=== PATIENT | male | born 1975 | race Caucasian/White ===

== ENCOUNTER 2021-09-01 12:17 | Emergency (ER) | payer BC, SELFPAY ==
[2021-09-01] VITALS (8 sets, daily range): BP systolic 142–204; BP diastolic 94–126; PULSE 70–106; RESP 18–20; TEMP 37.4; O2SAT 97–98
--- NOTE | ~2021-09-01 | XR_ITS ---
EXAMINATION: XR chest 1V portable DATE: 09/01/2021 13:49 INDICATION: Chest pain, cough and cold symptoms TECHNIQUE: frontal view of the chest was obtained. COMPARISON: None FINDINGS: Pulmonary vascular congestion without jeevan pulmonary edema. No focal airspace opacities, pleural eff usion or pneumothorax. The cardiomediastinal silhouette is normal. IMPRESSION: 1. Pulmonary vascular congestion without pulmonary edema or other evident acute cardiopulmonary disea se. Reviewed, dictated and finalized at location A. SHELLER IMPRESSION: 1. Pulmonary vascular congestion without pulmonary edema or other evident acute cardiopulmonary disease.
--- NOTE | 2021-09-01 12:23 | ED.GENADULT ---
HPI - General Adult General Chief complaint: Unspecified Stated complaint: hyperglycemia Time Seen by Provider: 09/01/21 12:33 Source: patient and RN notes reviewed Mode of arrival: ambulatory Limitations: no limitations History of Present Illness HPI narrative: Patient is a 45-year-old male who presents with chest tightness for the last 2 days noting that he is feeling congested as well as rhinorrhea nonproductive cough patient has concern for possible COVID he denies fever vomiting diarrhea weakness he also notes that he has been off his medications for months. Patient on arrival is nondistressed in the room Related Data Home Medications Medication Instructions Recorded Confirmed levothyroxine 50 mcg PO DAILY 09/01/21 09/01/21 Allergies Allergy/AdvReac Type Severity Reaction Status Date / Time No Known Allergies Allergy Verified 09/01/21 13:11 Review of Systems Review of Systems: All systems reviewed & are unremarkable except as noted in HPI and below PMFSH Past Medical History Medical History (Updated 09/01/21 @ 17:52 by Esvin Reynolds PA-C) Diabetes mellitus Hyperlipidemia Hypertension Social History Social History (Updated 09/01/21 @ 17:52 by Esvin Reynolds PA-C) Tobacco type: e-cigarettes/vaping Exam Narrative: GENERAL: Well-appearing, obese, and in no acute distress. HEAD: Normocephalic, atraumatic. EYES: PERRLA and EOMI. ENT: Nares clear, no rhinorrhea or epistaxis. Mucous membranes moist. CHEST: Clear to auscultation. No respiratory distress. No wheezes rales or rhonchi HEART: Regular rate and rhythm. No murmur heard. Normal peripheral pulses.. EXTREMITIES: Normal range of motion. No edema. SKIN: Warm, dry, no rash. NEURO: No focal deficits. Alert and oriented x3. Cranial nerves II through XII grossly intact. Normal speech and gait PSYCH: Normal mood and affect. Course Course Emergency Course: Patient presented for evaluation of symptoms that have been present now for the last couple of days he will have COVID testing pending will be discharged home his medications have been filled he has been given primary care follow-up and is felt appropriate for outpatient reevaluation he is afebrile nontoxic-appearing nondistressed and felt appropriate for outpatient reevaluation given strict indications for return is noted and felt appropriate for outpatient reevaluation patient agrees to return if symptoms worsen. He was made aware of case findings treatment plan and diagnosis Vital Signs Vital signs: Vital Signs Temperature 99.4 F 09/01/21 12:22 Pulse Rate 106 H 09/01/21 12:22 Respiratory Rate 20 09/01/21 12:22 Blood Pressure 204/126 H 09/01/21 12:22 Pulse Oximetry 98 09/01/21 12:22 Temperature 99.4 F 09/01/21 12:22 Pulse Rate 70 09/01/21 15:11 Respiratory Rate 18 09/01/21 15:11 Blood Pressure 160/97 H 09/01/21 17:34 Pulse Oximetry 98 09/01/21 15:11 Medical Decision Making MDM Narrative Medical decision making narrative: Patient presented with URI symptoms afebrile nontoxic-appearing nondistressed felt appropriate for outpatient reevaluation given indications for return felt appropriate for outpatient reevaluation he is nontoxic-appearing nondistressed Vital Signs Vital Signs: Vital Signs Temperature 99.4 F 09/01/21 12:22 Pulse Rate 106 H 09/01/21 12:22 Respiratory Rate 20 09/01/21 12:22 Blood Pressure 204/126 H 09/01/21 12:22 Pulse Oximetry 98 09/01/21 12:22 Temperature 99.4 F 09/01/21 12:22 Pulse Rate 70 09/01/21 15:11 Respiratory Rate 18 09/01/21 15:11 Blood Pressure 160/97 H 09/01/21 17:34 Pulse Oximetry 98 09/01/21 15:11 Lab Data Result diagrams: 09/01/21 13:51 09/01/21 13:51 Labs: Lab Results 09/01/21 09/01/21 09/01/21 Range/Units 12:23 13:51 13:51 WBC 5.3 (4.5-10.0) K/mm3 RBC 5.48 (4.6-6.20) M/mm3 Hgb 16.5 (14.0-18.0) g/dL Hct 48.0 (42.0-52.0
[2021-09-01 12:27] LABS: Glucose Point of Care 300 mg/dl (65-105)
--- NOTE | 2021-09-01 13:10 | PC.NURSE ---
Pt states he has had chest pain, congestion, fatigue, and malaise x 2 days. Pt is a type 2 diabetic and a history of hypertension. States he has been out of his medications since last year due to insurance issues. PA at bedside, pt is on cardiac monitoring .
--- NOTE | 2021-09-01 13:35 | ECG_ITS ---
Measurements Intervals [place] Rate: 90 P: -1 WI: 186 QRS: -36 QRSD: 101 T: 59 QT: 349 QTc: 428 Interpretive Statements SINUS RHYTHM LEFT AXIS DEVIATION LEFT VENTRICULAR HYPERTROPHY AND ST-T CHANGE POOR R WAVE PROGRESSION, ANTERIOR LEADS CONSIDER INFERIOR INFARCT, AGE INDETERMINATE BASELINE ARTIFACT- I, II, III, AVR, AVL, AVF, V6 ABNORMAL ECG Electronically Signed On 09-01-2021 14:10:24 PRINCIPAL EMBEDDED SOFTWARE ENGINEER by Lenny Griffin D.O.
[2021-09-01 14:06] LABS: Basophils Absolute Auto 0.1 K/mm3 (0.0-0.1); Basophils Percent Auto 0.9 % (0.2-1.2); Eosinophils Absolute Auto 0.1 K/mm3 (0-0.3); Eosinophils Percent Auto 0.9 % (0-4.4); Hemoglobin 16.5 g/dL (14.0-18.0); Immature Granulocyte Absolute 0.04 K/mm3 (0.00-0.031); Immature Granulocyte Percent A 0.8 % (0-0.5); Lymphocytes Absolute Auto 0.55 K/mm3 (0.9-3.2); Lymphocytes Percent Auto 10.4 % (18.3-44.2); Mean Corpuscular HGB Conc 34.4 g/dl (32-36); Mean Corpuscular Hemoglobin 30.1 pg (26-34); Mean Corpuscular Volume 87.6 fl (80-100); Mean Platelet Volume 10.7 fl (7.4-10.4); Monocytes Absolute Auto 0.6 K/mm3 (0.1-0.6); Monocytes Percent Auto 10.6 % (2.6-8.5); Neutrophils Percent Auto 76.4 % (45.5-73.1); Platelet Count Result 206 k/mm3 (150-375); Red Blood Count 5.48 M/mm3 (4.6-6.20); Red Cell Distribution Width 12.6 % (11.5-14.5); White Blood Count 5.3 K/mm3 (4.5-10.0)
[2021-09-01 14:21] LABS: Alanine Aminotransferase 25 U/L (4-50); Albumin Level 4.4 g/dL (3.5-5.1); Alkaline Phosphatase 121 U/L (38-126); Anion Gap 11 mmol/L (8-16); Aspartate Amino Transferase 26 U/L (17-59); Bilirubin,Total 0.5 mg/dL (0.2-1.3); Blood Urea Nitrogen 11 mg/dL (9-20); Calcium 8.8 mg/dL (8.4-10.2); Carbon Dioxide 23 mmol/L (22-30); Chloride 99 mmol/L (98-107); Estimated CRCL calculation 200 ml/min; Estimated Glomerular Filt Rate > 60; Glucose 308 mg/dL (65-110); Partial Thromboplastin Time 24.8 SECONDS (22.3-36.8); Potassium 3.9 mmol/L (3.4-5.0); Prothrombin Time 12.6 Seconds (11.1-14.7); Sodium 133 mmol/L (137-145)
[2021-09-01 14:32] LABS: Troponin I < 0.012 ng/mL (0.000-0.034)
[2021-09-01] MEDS: METOPROLOL TARTRATE 50 MG TAB 100 MG PO (14:44)
[2021-09-01] MEDS: SODIUM CHLORIDE 0.9% IV 500 ML 999 ML IV CONT (15:36)
[2021-09-01] MEDS: INSULIN HUMAN REGULAR (*BKC) 100 UNITS/ML 10 UNITS SUB-Q (15:36)
[2021-09-01 16:42] LABS: Glucose Point of Care 297 mg/dl (65-105)
[2021-09-01 17:41] LABS: Troponin I 0.015 ng/mL (0.000-0.034)
[2021-09-02 21:12] LABS: SARS-CoV-2 RNA PCR Positive
== END 2021-09-01 18:39 | disposition home or self-care (01) ==
PROVIDERS: Emergency Medicine Emergency Medical Services; Emergency Provider Emergency Medicine
DX: U07.1 COVID-19 (principal); E11.9 Type 2 diabetes mellitus without complications; E78.5 Hyperlipidemia, unspecified; I10 Essential (primary) hypertension
CPT/HCPCS: 36415; 71045; 80053; 82948; 84484; 85025; 85610; 85730; 93005; 96360; 96361; 99284; A9270; C9803; J1815; J7040; U0003; U0005

== ENCOUNTER 2023-09-21 10:52 | Emergency (ER) | payer MEDICAID, SELFPAY ==
--- NOTE | ~2023-09-21 | CT_ITS ---
EXAMINATION: CT abdomen pelvis w con DATE: 09/21/2023 12:36 INDICATION: Rectal bleeding and abdominal pain TECHNIQUE: Computed tomography (CT) of the abdomen and pelvis was performed with 100 mL Omnipaque-350 intravenous contrast. Automated exposure control and iterative reconstruction technique were employe d. The dose-length product was 1283.06 mGy-cm. COMPARISON: None FINDINGS: Minimal discoid atelectasis at the lingula. Heart size is normal. Atherosclerotic coronary artery chelsy cifications. No pericardial or pleural effusion. Liver, gallbladder, pancreas, bilateral adrenal glan ds and kidneys are normal. Small splenic calcific location consistent with old granulomatous disease. Bowels including the appendix are normal. Bladder is normal. No free intraperitoneal gas or fluid. N o pathologically enlarged abdominal or pelvic lymphadenopathy. Mild to moderate thoracolumbar spondyl osis. IMPRESSION: 1. No acute intra-abdominal/pelvic process. Reviewed, dictated and finalized at location A. PRESIDENT REGULATORY
[2023-09-21 11:12] VITALS: BP 173/129; PULSE 93; RESP 16; TEMP 36.6; O2SAT 100
--- NOTE | 2023-09-21 11:51 | ED.GENADULT ---
[facility] - General Adult General Chief complaint: Abdominal Pain Stated complaint: abd pain, rectal bleeding Time Seen by Provider: 09/21/23 11:20 Source: patient Mode of arrival: ambulatory Limitations: no limitations History of Present Illness HPI narrative: This is a 48-year-old male With PMH of DM, hypertension, hypothyroidism, HLD who presents to the ED with chief complaint of rectal pain and bleeding for the past several days. Reports feeling a lot of pressure in the rectal area. Reports this morning he was wiping and some bright red blood. He was having continued bleeding so he used some rags in the area. He reports he had a bout of constipation recently and had been straining hard for several weeks to have bowel movements. reports a little bit of lower abdominal pain is mild. 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 denies fevers, chills, nausea, vomiting, urinary symptoms. Related Data Home Medications Medication Instructions Recorded Confirmed levothyroxine 50 mcg capsule 50 mcg PO DAILY 09/01/21 09/01/21 Allergies Allergy/AdvReac Type Severity Reaction Status Date / Time No Known Allergies Allergy Verified 09/01/21 13:11 Review of Systems Review of Systems: All systems as dictated in [facility] Past Medical History Medical History (Updated 09/21/23 @ 13:20 by Wilman Domingo PA-C) Diabetes mellitus Hyperlipidemia Hypertension Social History Social History (Updated 09/01/21 @ 17:52 by Esvin Reynolds, CARLOS) Tobacco type: e-cigarettes/vaping Exam Narrative: GENERAL: Well-appearing, well-nourished, and in no acute distress. HEAD: Normocephalic, atraumatic. EYES: PERRLA and EOMI. ENT: Nares clear, no rhinorrhea or epistaxis. Mucous membranes moist. Oropharynx without tonsillar hypertrophy exudate or other lesions. NECK: Supple. No adenopathy or masses. CHEST: No respiratory distress. Clear to auscultation. No wheezes rales or rhonchi HEART: Regular rate and rhythm. No murmur heard. Normal peripheral pulses. ABDOMEN: Soft, nontender, nondistended, normal active bowel sounds. MSK: Normal range of motion. No edema. SKIN: Warm, dry, no rash. NEURO: Alert and oriented x3. No focal deficits. PSYCH: Normal mood and affect. : Rectal exam done with nurse auto servicer present. There is evidence of protruding internal hemorrhoid. No evidence of thrombosis. Guaiac exam positive. No area of induration or fluctuance. Course Vital Signs Vital signs: Vital Signs Temperature 97.8 F 09/21/23 11:12 Pulse Rate 93 09/21/23 11:12 Respiratory Rate 16 09/21/23 11:12 Blood Pressure 173/129 H 09/21/23 11:12 Pulse Oximetry 100 09/21/23 11:12 Oxygen Delivery Room Air 09/21/23 11:12 Temperature 97.8 F 09/21/23 11:12 Pulse Rate 89 09/21/23 16:15 Respiratory Rate 20 09/21/23 16:15 Blood Pressure 177/111 H 09/21/23 16:15 Pulse Oximetry 97 09/21/23 16:15 Oxygen Delivery Room Air 09/21/23 11:12 Medical Decision Making MDM Narrative Medical decision making narrative: This is a 48-year-old male who presents to the ED with chief complaint of rectal bleeding and pain. Vitals show elevated blood pressure. Otherwise vitals are normal. He is a diabetic and has been out of his diabetes and hypertensive medications for several weeks. lab work shows a normal red cell count and no Leukocytosis. CMP shows markedly elevated blood sugar of 438. No anion gap or evidence of DKA. CT abdomen and pelvis with IV contrast shows no acute intra-abdominal or pelvic process. Rectal exam shows jeevan blood. There is obvious hemorrhoid noted. No evidence of thrombosed hemorrhoid. Prescription for Anusol given. We were able to get the sugar down to 280 with 2.5 L of fluids as well as 2 separate boluses of 8 units of insulin. Long discussion regarding his chronic medical conditions
[2023-09-21 12:11] LABS: Basophils Absolute Auto 0.1 K/mm3 (0.0-0.1); Basophils Percent Auto 0.9 % (0.2-1.2); Eosinophils Absolute Auto 0.1 K/mm3 (0-0.3); Eosinophils Percent Auto 0.9 % (0-4.4); Hematocrit 48.1 % (42.0-52.0); Hemoglobin 16.8 g/dL (14.0-18.0); Immature Granulocyte Absolute 0.03 K/mm3 (0.00-0.031); Immature Granulocyte Percent A 0.4 % (0-0.5); Lymphocytes Absolute Auto 1.85 K/mm3 (0.9-3.2); Lymphocytes Percent Auto 24.1 % (18.3-44.2); Mean Corpuscular HGB Conc 34.9 g/dl (32-36); Mean Corpuscular Hemoglobin 30.1 pg (26-34); Mean Platelet Volume 10.4 fl (7.4-10.4); Monocytes Absolute Auto 0.5 K/mm3 (0.1-0.6); Monocytes Percent Auto 6.9 % (2.6-8.5); Neutrophils Absolute Auto 5.1 K/mm3 (1.3-6.7); Neutrophils Percent Auto 66.8 % (45.5-73.1); Platelet Count Result 240 k/mm3 (150-375); Red Blood Count 5.59 M/mm3 (4.6-6.20); White Blood Count 7.7 K/mm3 (4.5-10.0)
[2023-09-21 12:15] LABS: Alanine Aminotransferase 23 U/L (6-50); Albumin Level 4.4 g/dL (3.5-5.1); Alkaline Phosphatase 118 U/L (38-126); Anion Gap 6 mmol/L (8-16); Aspartate Amino Transferase 26 U/L (17-59); Bilirubin,Total 0.9 mg/dL (0.2-1.3); Blood Urea Nitrogen 11 mg/dL (9-20); Calcium 9.1 mg/dL (8.4-10.2); Carbon Dioxide 28 mmol/L (22-30); Chloride 98 mmol/L (98-107); Estimated CRCL calculation 157 ml/min; Estimated Glomerular Filt Rate > 60; Glucose 438 mg/dL (65-110); Sodium 132 mmol/L (137-145)
[2023-09-21] MEDS: SODIUM CHLORIDE 0.9% IV 1,000 ML 999 ML IV CONT ×2 (12:56)
[2023-09-21 12:59] VITALS: BP 190/130; PULSE 99; RESP 20; O2SAT 96
[2023-09-21] MEDS: INSULIN HUMAN REGULAR (*BKC) 100 UNITS/ML 8 UNITS IV PUSH ×2 (13:54→14:55)
[2023-09-21 13:59] VITALS: BP 180/110; PULSE 88; RESP 20; O2SAT 96
[2023-09-21 13:59] LABS: Glucose Point of Care 475 mg/dl (65-105)
[2023-09-21 14:23] LABS: Glucose Point of Care 422 mg/dl (65-105)
[2023-09-21] MEDS: SODIUM CHLORIDE 0.9% IV 500 ML 999 ML IV CONT (14:55)
[2023-09-21 16:12] LABS: Glucose Point of Care 280 mg/dl (65-105)
[2023-09-21] MEDS: POTASSIUM CHLORIDE 20 MEQ ER TABLET PO (16:14)
[2023-09-21 16:15] VITALS: BP 177/111; PULSE 89; RESP 20; O2SAT 97
== END 2023-09-21 16:17 | disposition home or self-care (01) ==
PROVIDERS: Emergency Provider Physician Assistant
DX: K64.8 Other hemorrhoids (principal); I10 Essential (primary) hypertension; E03.9 Hypothyroidism, unspecified; E11.9 Type 2 diabetes mellitus without complications; F17.290 Nicotine dependence, other tobacco product, uncomplicated; Z79.84 Long term (current) use of oral hypoglycemic drugs
CPT/HCPCS: 36415; 74177; 80053; 82948; 85025; 96361; 96374; 96375; 99284; A9270; J1815; J7030; J7040; Q9967

== ENCOUNTER 2024-06-22 02:01 | Emergency (ER) | payer OTHER, SELFPAY ==
--- NOTE | ~2024-06-22 | XR_ITS ---
EXAMINATION: XR shoulder RT min 2V DATE: 06/22/2024 02:49 INDICATION: Right shoulder pain. TECHNIQUE: 3 views of right shoulder were obtained. COMPARISON: None. FINDINGS: Alignment is normal. No fracture. The glenohumeral joint is not well profiled. There is mil d acromioclavicular joint osteoarthritis. IMPRESSION: 1. Mild acromioclavicular joint osteoarthritis. Reviewed, dictated and finalized at location A. SHOP MANAGER
[2024-06-22 02:05] VITALS: BP 158/109; PULSE 103; RESP 20; TEMP 36.8; O2SAT 100
--- NOTE | 2024-06-22 02:34 | ED.EXTPRO ---
HPI - Extremity Problem General Chief complaint: Extremity Problem,Nontraumatic Stated complaint: right shoulder pain, weak, burn, numb 1 week Time Seen by Provider: 06/22/24 02:15 Source: patient Mode of arrival: ambulatory Limitations: no limitations History of Present Illness HPI Narrative: Patient is a 48-year-old male who presents the ED with report of right shoulder pain. Patient reports having pain in his right shoulder for the last 3 days. 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 Has had persistent pain with movement since then. Reports intermittent tingling in right upper extremity due to pain. Denies chest pain or shortness of breath. Has been taking ibuprofen at home without improvement. Related Data Home Medications Medication Instructions Recorded Confirmed levothyroxine 50 mcg capsule 50 mcg PO DAILY 09/01/21 09/01/21 Allergies Allergy/AdvReac Type Severity Reaction Status Date / Time No Known Allergies Allergy Verified 06/22/24 02:11 Review of Systems Review of Systems: All systems reviewed & are unremarkable except as noted in HPI. All systems reviewed & are unremarkable except as noted in HPI and below PMFSH Past Medical History Medical History Diabetes mellitus Hyperlipidemia Hypertension Social History Social History Tobacco type: e-cigarettes/vaping Exam Narrative: GENERAL: Well appearing, obese with BMI of 31.6, non-toxic, in no acute distress. HEAD: Normocephalic, atraumatic. RESPIRATORY: Airway patent, respirations nonlabored. CARDIOVASCULAR: Regular rate and rhythm. Radial pulses intact and easily palpable. MUSCULOSKELETAL: Moves all extremities. No gross deformities. Mild limited range of motion of right due to pain past 90? of flexion or abduction. Sensation intact throughout extremity. No swelling noted. Mild tenderness to palpation throughout posterior right shoulder and into trapezius region, reproducing pain. SKIN: Warm, dry, normal color. NEURO: A&O X3. Speech clear. Cranial nerves II-XII grossly intact. No ataxic movements. PSYCHIATRIC: Appropriate mood and affect. Normal interaction. Course Vital Signs Vital signs: Vital Signs Temperature 98.2 F 06/22/24 02:05 Pulse Rate 103 H 06/22/24 02:05 Respiratory Rate 20 06/22/24 02:05 Blood Pressure 158/109 H 06/22/24 02:05 Pulse Oximetry 100 06/22/24 02:05 Oxygen Delivery Room Air 06/22/24 02:05 Temperature 98.2 F 06/22/24 02:05 Pulse Rate 103 H 06/22/24 02:05 Respiratory Rate 20 06/22/24 02:05 Blood Pressure 158/109 H 06/22/24 02:05 Pulse Oximetry 100 06/22/24 02:05 Oxygen Delivery Room Air 06/22/24 02:05 MDM - Extremity (Nontraumatic) MDM Narrative Medical decision making narrative: Patient?s injury is consistent with musculoskeletal etiology. No signs of neurologic or vascular compromise on physical examination. Compartments are soft without signs of compartment syndrome. XR of right shoulder interpreted by myself with possible mild subluxation, no acute fracture/dislocation. Pain is consistent with shoulder strain. Discussed possibility of rotator cuff injury. Patient is felt to be stable for discharge home and further outpatient management and treatment. Patient given sling in the ED. Will prescribe short course of pain medicine for home. Will refer to orthopedics for further evaluation. Given return precautions. Discharged in stable condition. Medical Records Attestation: I reviewed the patient's medical records. Imaging Data Attestation: I personally reviewed and interpreted this imaging study as follows: My impression: XR R shoulder: Possible subluxation of humeral head. No acute fracture or dislocation. Discharge Plan Discharge Clinical Impression: Strain of right shoulder Qualifiers: Encounter type: initial encounter Qualified Code(s): S46.911A - Strain of unspecified muscle, fascia and tendon at shoulder and upper arm level, right arm, initial encounter Patient Disposition: Home, Self-Care Condition: Stable Instructions: Antibiotic Form, Rotator Cuff Injury (ED), How to Use a Sling (ED), Shoulder Sprain (ED) Additional Instructions: Utilize sling for comfort and support. Recommend frequent icing to shoulder, lidocaine patches to area of pain. Continue Tylenol and ibuprofen as needed for pain. Tramadol as needed for more severe pain. Follow-up with orthopedics for further evaluation if needed. Return to the ED if you experience worsening or severe pain, recurrent injury, numbness, chest pain, shortness of breath, or any other symptoms of concern. Prescriptions: New tramadol 50 mg tablet 50 mg PO Q6H PRN (Reason: pain) Qty: 10 0RF lidocaine 5 % adhesive patch,medicated 1 patch topical DAILY Qty: 15 0RF Rx Instructions: leave on most painful area for up to 12 hrs No Action hydrocortisone acetate [Anusol-HC] 25 mg suppository 25 mg RECTAL BID Qty: 12 0RF levothyroxine 50 mcg Capsule 50 mcg PO DAILY metformin 500 mg Tablet 500 mg PO BID Qty: 60 0RF atorvastatin 20 mg Tablet 20 mg PO DAILY Qty: 30 0RF metoprolol tartrate 100 mg Tablet 100 mg PO BID Qty: 30 0RF amlodipine 10 mg Tablet 10 mg PO DAILY Qty: 30 0RF hydrochlorothiazide 25 mg Tablet 25 mg PO DAILY Qty: 30 0RF Follow-up/Referrals: Gaetano Shields MD [Physician] - (ORTHOPEDICS) PHYSICIAN NOT ON STAFF,NONSTAFF [Primary Care Provider] - Stand Alone Forms: Work/School Release IP Time of Disposition: 03:00
[2024-06-22] MEDS: LIDOCAINE 5% PATCH 1 PATCH TRANSDERM (02:47)
[2024-06-22] MEDS: HYDROcodone/acetaminophen (*CRX) 5-325 MG TABLET 1 TAB PO (02:48)
== END 2024-06-22 03:09 | disposition home or self-care (01) ==
PROVIDERS: Emergency Provider Physician Assistant
DX: S46.911A Strain of unspecified muscle, fascia and tendon at shoulder and upper arm level, right arm, initial encounter (principal); I10 Essential (primary) hypertension; E11.9 Type 2 diabetes mellitus without complications; E78.5 Hyperlipidemia, unspecified; F17.290 Nicotine dependence, other tobacco product, uncomplicated; Z79.84 Long term (current) use of oral hypoglycemic drugs; Z79.899 Other long term (current) drug therapy; M19.011 Primary osteoarthritis, right shoulder; X50.9XXA Other and unspecified overexertion or strenuous movements or postures, initial encounter
CPT/HCPCS: 73030; 99283; A9270

== ENCOUNTER 2025-03-25 09:45 | Observation (INO) | payer OTHER, SELFPAY ==
[2025-03-25] VITALS (51 sets, daily range): BP systolic 147–188; BP diastolic 107–139; PULSE 86–99; RESP 13–38; TEMP 36.7–37.1; O2SAT 91–99
--- NOTE | ~2025-03-25 | XR_ITS ---
Exam: Chest x-ray 2 views CLINICAL HISTORY: Left-sided chest pain. Shortness of breath. Cough for 2 days. COMPARISON: 09/01/2021. TECHNIQUE: Frontal and lateral images of the chest were obtained. FINDINGS: Cardiomediastinal silhouette is borderline enlarged, unchanged. No pneumothorax. No pleural effusion. No free air in the diaphragm. Small opacities in the lower lungs. There is a 2.5 cm masslike density in the left suprahilar region. Differential includes overlapping v asculature, mass or focal consolidation. A chest CT with contrast is recommended. IMPRESSION: 1.There is a 2.5 cm masslike density in the left suprahilar region. Differential includes overlapping vasculature, mass or focal consolidation. A chest CT with contrast is recommended. 2. Small opacities in the lower lungs. Differential includes atelectasis/scarring or infiltrates. Reviewed, dictated and finalized at location A. IMPRESSION: 1.There is a 2.5 cm masslike density in the left suprahilar region. Differentia l includes overlapping vasculature, mass or focal consolidation. A chest CT wit h contrast is recommended. 2. Small opacities in the lower lungs. Differential includes atelectasis/scarri ng or infiltrates.
--- NOTE | ~2025-03-25 | CT_ITS ---
EXAMINATION: CTA chest DATE: 03/27/2025 12:10 CDT INDICATION: Chest pain with newly diagnosed pulmonary hypertension and cardiomyopathy. TECHNIQUE: Computed tomographic angiography (CTA) of the chest was performed with 100 mL Omnipaque-35 0 intravenous contrast. The dose-length product was 815.46 mGy-cm. Maximum intensity projection 3D-re constructions of the aorta and other arteries were constructed by the technologist on a separate work station. COMPARISON: CTA examination of the chest dated 03/25/2025 FINDINGS/OBSERVATIONS: PULMONARY ARTERIES: No filling defect is identified within the main or proximal pulmonary artery. The main pulmonary artery is not enlarged. THORACIC AORTA: No aneurysmal dilatation or dissection is present, unchanged from previous study. The great vessels are intact LUNGS: Interval resolution of the bilateral pleural effusions and trace anasarca seen on previous exa mination. Mild groundglass opacification remains detected diffusely throughout the bilateral pulmonary parenchy ma. MEDIASTINUM: Redemonstration of prominent mediastinal lymph nodes, the largest lymph nodes are locate d within the aortopulmonary window measuring 9 mm in short axis dimension, not pathologically enlarge d. No morphologically suspicious or pathologically enlarged lymph nodes are identified within the medias tinum or bilateral axilla. BONES OF THE CHEST: No acute fracture. No significant degenerative disease. No lytic or blastic lesions. HEART: The heart is enlarged, unchanged, without pericardial effusion. IMPRESSION: No pulmonary embolus. No thoracic aortic dissection. Interval resolution of the bilateral pleural effusions and trace anasarca seen on previous examinatio n. Reviewed, dictated and finalized at location A. IMPRESSION: No pulmonary embolus. No thoracic aortic dissection. Interval resolution of the bilateral pleural effusions and trace anasarca seen on previous examination.
--- NOTE | ~2025-03-25 | CT_ITS ---
EXAMINATION: CTA chest PE protocol DATE: 03/25/2025 11:18 INDICATION: Chest pain, shortness of breath and possible lung mass TECHNIQUE: Computed tomography (CT) pulmonary angiogram of the chest was performed with 100 mL Omnipa que-350 intravenous contrast. Additional 3D reconstructions utilizing coronal maximum intensity proje ction (MIP) were performed. Automated exposure control and iterative reconstruction technique were em ployed. The dose-length product was 580.29 mGy-cm. COMPARISON: None FINDINGS: No pulmonary embolism. Mild pulmonary edema with diffuse bilateral dependent prominent groundglass op acities and basilar predominant mild smooth septal line thickening. Small posterior layering bilatera l pleural effusions. No pulmonary masses. Opacity of concern on prior radiographs likely related to s uperimposition of the first rib costochondral calcifications and the left suprahilar pulmonary vascul ar shadows. Heart size is normal. Atherosclerotic coronary artery calcific location. No pericardial e ffusion. Thoracic aorta is normal in caliber. Mild likely reactive mediastinal lymphadenopathy with m ultiple small lymph nodes more notable for number than size. No pathologically enlarged thoracic lymp hadenopathy. Visualized upper abdomen is unremarkable. Moderate thoracic spondylosis and chronic mild likely physiologic anterior wedging at T11 and T12. IMPRESSION: 1. No pulmonary embolism. 2. Mild pulmonary edema and small bilateral pleural effusions. Reviewed, dictated and finalized at location A.
--- NOTE | ~2025-03-25 | XR_ITS ---
EXAMINATION: XR chest 1V portable 03/27/2025 11:23 INDICATION: Chest discomfort PROCEDURE: AP portable chest COMPARISON: 03/25/2025 FINDINGS: The lungs are clear. The cardiomediastinal silhouette is within normal limits. There are no pleural effusions. There is no pneumothorax suspected. IMPRESSION: 1: NO ACUTE CARDIOPULMONARY DISEASE. Reviewed, dictated and finalized at location A.
--- NOTE | 2025-03-25 10:02 | ECG_ITS ---
Test Date: 2025-03-25 10:09:15 Measurements Intervals [place] Rate: 90 P: 20 FL: 208 QRS: -31 QRSD: 161 T: 138 QT: 425 QTc: 523 Interpretive Statements SINUS RHYTHM LEFT AXIS DEVIATION POSSIBLE LEFT ATRIAL ENLARGEMENT LEFT BUNDLE BRANCH BLOCK BASELINE ARTIFACT- I, III, AVR, AVL ABNORMAL ECG No previous ECG available for comparison Electronically Signed On 03-25-2025 10:30:04 CDT by Lenny Griffin D.O.
[2025-03-25 10:17] LABS: Hematocrit 44.0 % (42.0-52.0); Hemoglobin 14.4 g/dL (14.0-18.0); Immature Granulocyte Percent A 0.2 % (0-0.5); Lymphocytes Absolute Auto 1.91 K/mm3 (0.9-3.2); Mean Corpuscular HGB Conc 32.7 g/dl (32-36); Mean Corpuscular Hemoglobin 29.9 pg (26-34); Mean Corpuscular Volume 91.3 fl (80-100); Nucleated Red Blood Cells Absolute Auto 0.000 K/mm3 (0.0-0.012); Nucleated Red Blood Cells Perc 0.0 % (0.0-0.2); Platelet Count Result 304 k/mm3 (150-375); Red Blood Count 4.82 M/mm3 (4.6-6.20); White Blood Count 9.1 K/mm3 (4.5-10.0)
--- OUTSIDE RECORDS SUMMARY | 2025-03-25 10:22 | XMS_ITS | Clinical Summary ---
Author Organization [facility] [address] [place] [id number] Care Team Providers Care Conveyor Worker Name Role Phone Carlos Shields Primary Care Provider + Allergies No known active allergies Medications amLODIPine (NORVASC) 10 mg tablet 04/11/2024 Active metoprolol XL (TOPROL-XL) 100 mg 24 hr tablet 04/11/2024 Act tian Januvia 100 mg tablet 04/19/2024 Active losartan (COZAAR) 100 mg tablet 04/11/2024 Active hydroCHLOROthia zide (HYDRODIURIL) 25 mg tablet 04/11/2024 Active insulin glargine (LANTUS) 100 unit/mL (3 mL) pen for injectionIndica tions:Type 2 diabetes mellitus with hyperglycemia, without long-term current use of insulin (HCC) Inject 16-20 Units under the skin daily 6 mL 5 05/20/2024 Active empagliflozin (JARDIANCE) 25 mg tabletIndicatio ns:Type 2 diabetes mellitus with hyperglycemia, without long-term current use of insulin (HCC) Take 1 tablet (25 mg total) by mouth daily 30 tablet 5 05/20/2024 Active pen needle, diabetic (BD Ultra-Fine Bindu Pen Needle) 32 gauge x needleIndicatio ns:Type 2 diabetes mellitus with hyperglycemia, without long-term current use of insulin (HCC) One each daily 30 each 11 05/20/2024 Active gabapentin (NEURONTIN) 300 mg capsuleIndicati ons:Diabetic Peripheral Neuropathy Take 1 capsule (300 mg total) by mouth 3 (three) times a day 90 capsule 2 05/20/2024 Active Dexcom G7 Bi Technical Lead miscIndications :Type 2 diabetes mellitus with hyperglycemia, without long-term current use of insulin (HCC) Use as directed. 1 each 05/20/2024 Active Dexcom G7 Sensor deviceIndicatio ns:Type 2 diabetes mellitus with hyperglycemia, without long-term current use of insulin (HCC) Use as directed. Change sensor every 10 days. 3 each 11 05/20/2024 Active atorvastatin (LIPITOR) 20 mg tabletIndicatio ns:Hyperlipidem ia associated with type 2 diabetes mellitus (HCC) Take 1 tablet (20 mg total) by mouth nightly 90 tablet 3 05/20/2024 5 Active Active Problems Problem Noted Date Diagnosed Date Type 2 diabetes mellitus wit h hyperglycemia, without long-term current use of insulin 05/20/2024 Assessment & Plan (05/20/2024 1:03 PM CDT): Chronic, poorly controlled, slowly improving but still above goal Hemoglobin A1c 11% Goal A1c at least less than 7.5-7% Counseled patient on diet and exercise Recommend to check blood sugars more often Discussed about continuous glucose monitoring Patient willing to try Dexcom G7 Sent prescription and gave samples Recommend below medication regimen Keep taking Januvia 100 mg oral daily Start Lantus 10 units SQ daily in morning ( increase by 2-4 units every 3-4 days until you see morning blood sugars between 120-140 range, max dose 20 units per day ) Start Jardiance 25 mg oral daily - check labs today Adding GLP 1 agonist in future Diabetic neuropathy associat ed with type 2 diabetes mellitus 05/20/2024 Assessment & Plan (05/20/2024 1:01 PM CDT): Chronic, uncontrolled, worsening Recommend to work on better glycemic control Start gabapentin for symptomatic management Advised to start taking gabapentin 300 mg oral daily at bedtime and slowly increase up to 3 times daily Discussed about mechanism of action, side effects and benefits Hypertension associated with diabetes 05/20/2024 Assessment & Plan (05/20/2024 1:02 PM CDT): Chronic, fairly controlled Patient on Arb and CHARLIE inhibitors together Advised to stop enalapril Continue losartan, amlodipine, metoprolol and hydrochlorothiazide Hyperlipidemia associated with type 2 diabetes julia estrada 05/20/2024 Assessment & Plan (05/20/2024 1:02 PM CDT): We will start patient on statin therapy Class 1 obesity due to exces s calories with serious comorbidity and body mass index (BMI) of 31.0 to 31.9 in adult 05/20/2024 Assessment & Plan (05/20/2024 1:01 PM CDT): Counseled on diet and exercise Medical History Medical History Date Comments Diabetes (HCC) Hypertension Family History Medical History Relation Name Comments Lupus Mother Relation Name Status Comments Mother Social History Tobacco Use Types Packs/Day Years Used Date Smoking Tobacco: Some Days Vaping Tobacco Cessation:Ready to Q uit: Not Asked; Counseling Given: Not Answered Personal Safety Answer Date Recorded Getting School Help Needed Not on file 04/19 Sex and Gender Information Value Date Recorded Sex Assigned at Not on file Legal Sex Male 8:59 AM CDT Gender Identity Not on file Sexual Orientation Not on file Obstetrics History Last Filed Vital Signs Vital Sign Reading Time Taken Comments Blood Pressure 138/88 05/20/2024 10:34 AM CDT Pulse 101 05/20/2024 10:34 AM CDT Temperature - - Respiratory Rate 16 05/20/2024 10:34 AM CDT Oxygen Saturation - - Inhaled Oxygen Concentration - - Weight 100.2 kg (221 lb) 05/20/2024 10:34 AM CDT Height 177.8 cm (5' 10) 05/20/2024 10:34 AM CDT Body Mass Index 31.71 05/20/2024 10:34 AM CDT Plan of Treatment Health Maintenance Due Date Last Done Comments Albumin Creatinine Ratio, Urine 1976 Colon Cancer Screening-Colonoscopy 1976 Depression Screening 1976 Hepatitis C Screening 1976 eGFR 1976 Dilated Eye Exam 1976 Lipid Panel 1976 DTaP/Tdap/Td Vaccine (1 - Tdap) 1987 Hepatitis B Screening 1994 Regular Well Visit/Exam 18-64 1994 Pneumococcal vaccine <65 (1 of 2 - PCV) 1995 Hemoglobin A1C 11/18/2024 05/20/2024 Influenza Vaccine (#1) 2025 Foot Exam 05/20/2025 05/20/2024 Procedures Procedure Name Priority Date/Time Associated Diagnosis Comments POCT HEMOGLOBIN A1C Routine 05/20/2024 1 0:37 AM CDT Type 2 diabetes mellitus with hyperglycemia, without long-term current use of insulin (HCC) from Last 3 Months or Most Recently Relevant to Health Maintenance Results * POCT hemoglobin A1c (05/20/2024 10:37 AM CDT) Hemoglobin A1C, POC 11.0 4.0 - 5.6 % Blood 05/20/2024 10:3 7 AM CDT Trina Muller MD POINT OF CARE TEST ORDERABLES Final Result from Last 3 Months or Most Recently Relevant to Health Maintenance [place] [address] [place] [address] Care Teams Conveyor Worker Relationship Specialty Start Date End Date Carlos Shields PA [address] [place] [id number] PCP - General Internal Medicine 04/19/24
[2025-03-25 10:29] LABS: INR 1.0; Prothrombin Time 13.8 Seconds (11.1-14.7)
[2025-03-25 10:30] LABS: Partial Thromboplastin Time 24.4 Seconds (22.3-36.8)
[2025-03-25 10:31] LABS: Alanine Aminotransferase 67 U/L (6-50); Albumin Level 3.7 g/dL (3.5-5.1); Alkaline Phosphatase 129 U/L (38-126); Anion Gap 9 mmol/L (4-12); Aspartate Amino Transferase 38 U/L (17-59); Bilirubin,Total 1.2 mg/dL (0.2-1.3); Blood Urea Nitrogen 10 mg/dL (9-20); Calcium 8.7 mg/dL (8.4-10.2); Carbon Dioxide 22 mmol/L (22-30); Chloride 101 mmol/L (98-107); Estimated CRCL calculation 138 ml/min; Estimated Glomerular Filt Rate > 60; Glucose 347 mg/dL (65-110); Lipase 38 U/L (23-300); Potassium 3.9 mmol/L (3.4-5.0); Sodium 132 mmol/L (137-145); Total Protein 6.7 g/dL (6.3-8.2)
--- NOTE | 2025-03-25 10:37 | ED.SOB ---
HPI - SOB/Dyspnea General Chief Complaint: Shortness of Breath/Dyspnea <Kizzy Quintana PA-C - Last Filed: 03/25/25 13:58> Stated Complaint: SOB for 2 days. Fever, cough <Kizzy Quintana PA-C - Last Filed: 03/25/25 13:58> Time Seen by Provider: 03/25/25 10:11 <CARLOS Gutierrez Last Filed: 03/25/25 13:58> Source: patient <CARLOS Gutierrez Last Filed: 03/25/25 13:58> Mode of arrival: ambulatory <CARLOS Gutierrez Last Filed: 03/25/25 13:58> Limitations: no limitations <Kizzy Quintana PA-C - Last Filed: 03/25/25 13:58> History of Present Illness HPI Narrative: This is a 49-year-old male that presents to the emergency department for shortness of breath. Worsening over the last 2 days. Worse with lying flat and when he tries to sleep. Reports history of diabetes and hypertension. He has not taken his medications in months. Reports he had some sharp left-sided chest pain last night. He also reports some chest discomfort with deep breathing. Reports a cough. Denies fevers, lower extremity edema. <Kizzy Quintana PA-C - Last Filed: 03/25/25 13:58> Related Data Home Medications: Home Medications ?Medication ?Instructions ?Recorded ?Confirmed ?Last Taken ?Type levothyroxine 50 mcg capsule 50 mcg PO DAILY 09/01/21 03/25/25 Unknown History <Kizzy Quintana PA-C - Last Filed: 03/25/25 13:58> Allergies/Adverse Reactions: Allergies Allergy/AdvReac Type Severity Reaction Status Date / Time No Known Allergies Allergy Verified 03/25/25 09:59 <CARLOS Gutierrez Last Filed: 03/25/25 13:58> Review of Systems Review of Systems: All systems reviewed & are unremarkable except as noted in HPI and below <CARLOS Gutierrez Last Filed: 03/25/25 13:58> [facility] Past Medical History Medical History: Medical History (Updated 03/25/25 @ 17:35 by Mari Borges APRN) Depression Anxiety Hyperlipidemia Hypertension Diabetes mellitus <Kizzy Quintana PA-C - Last Filed: 03/25/25 13:58> Family History Family History: Family History Mother Diabetes mellitus Lupus Father Obesity <Kizzy Quintana PA-C - Last Filed: 03/25/25 13:58> Social History Social History: Social History Smoking status: Former smoker Tobacco type: cigarettes Smoking end date: 08/14/12 Alcohol intake: never Substance use: current Substance use type: marijuana Other substance usage details: 5-10 mg edibles several times a week Lack of Transportation: No Lack of Food: Never True Current Housing: I Have Housing Concerned About Future Housing: No Difficulty Paying Gas/Electric Bills: No Difficulty Paying for Meds: YES Currently Unemployed: No Education: High School Diploma/GED Difficulty w/ Childcare or Family Care: No Spiritual care concerns: No <Kizzy Quintana PA-C - Last Filed: 03/25/25 13:58> Exam Narrative: GENERAL: Well-appearing, well-nourished, and in no acute distress. HEAD: Normocephalic, atraumatic. EYES: EOMI. ENT: Nares clear, no rhinorrhea or epistaxis. Mucous membranes moist. Oropharynx without tonsillar hypertrophy exudate or other lesions. NECK: Supple. No adenopathy or masses. CHEST: No respiratory distress. Rales in the bilateral lower lobes. No wheezes or rhonchi HEART: Regular rate and rhythm. No murmur heard. Normal peripheral pulses. EXTREMITIES: Normal range of motion. No edema. SKIN: Warm, dry, no rash. NEURO: No focal deficits. Alert and oriented x3. PSYCH: Normal mood and affect <Kizzy Quintana PA-C - Last Filed: 03/25/25 13:58> Course Course Emergency Course: patient updated on his workup and recommendation for admission <Kizzy Quintana PA-C - Last Filed: 03/25/25 13:58> SENIOR [employer]ACLE ADF DEVELOPER/PA Physician Supervision For this patient encounter, I reviewed the SENIOR ORACLE ADF DEVELOPER or PA documentation, treatment plan, and medical decision making; and I had [id number] time with this patient. <Asael Gallarod MD - Last Filed: 03/25/25 17:44> Consultations Consultation #1: spoke with hospitalist about patient and workup who accepts admission <Kizzy Quintana PA-C - Last Filed: 03/25/25 13:58> Date: 03/25/25 <Kizzy Quintana PA-C - Last Filed: 03/25/25 13:58> Vital Signs Vital signs: Vital Signs Pulse Rate 97 03/25/25 09:58 Pulse Oximetry 97 03/25/25 09:58 Temperature 98.7 F 03/25/25 15:35 Pulse Rate 92 03/25/25 15:35 Respiratory Rate 20 03/25/25 15:35 Blood Pressure 184/130 H 03/25/25 15:35 Pulse Oximetry 98 03/25/25 15:35 Oxygen Delivery Room Air 03/25/25 09:59 <Kizzy Quintana PA-C - Last Filed: 03/25/25 13:58> Vital Signs Pulse Rate 97 03/25/25 09:58 Pulse Oximetry 97 03/25/25 09:58 Temperature 98.7 F 03/25/25 15:35 Pulse Rate 92 03/25/25 15:35 Respiratory Rate 20 03/25/25 15:35 Blood Pressure 184/130 H 03/25/25 15:35 Pulse Oximetry 98 03/25/25 15:35 Oxygen Delivery Room Air 03/25/25 09:59 <Asael Gallardo MD - Last Filed: 03/25/25 17:44> MDM - SOB/Dyspnea MDM Narrative Medical decision making narrative: Patient presents the emergency department for shortness of breath. Worse with lying flat, and while attempting to sleep. Blood pressure elevated to the 180s systolic upon arrival. Patient given dose of labetalol with improvement. Blood pressure now in the 160s systolic. Patient does have oxygen desaturations while resting. Otherwise oxygen saturation is normal on room air. CBC and metabolic panel without concerning findings. His blood sugars elevated, he does have known history of diabetes. COVID, influenza, RSV screens negative. Chest x-ray shows a possible mass, recommend CT with contrast. CTA chest PE without pulmonary embolism. No mass noted. He does have mild pulmonary edema and small bilateral pleural effusions. Given a dose of Lasix. Will be admitted for further management <Kizzy Quintana PA-C - Last Filed: 03/25/25 13:58> Differential Diagnosis Differential diagnosis: Likely congestive heart failure, community acquired pneumonia, pulmonary embolism and other (sleep apnea, hypertension, hypertensive urgency) <Kizzy Quintana PA-C - Last Filed: 03/25/25 13:58> Lab Data Attestation: I reviewed the patient's lab results. <Kizzy Quintana PA-C - Last Filed: 03/25/25 13:58> Result diagrams: 03/25/25 10:09 03/25/25 10:09 <Kizzy Quintana PA-C - Last Filed: 03/25/25 13:58> Labs: Lab Results 03/25/25 03/25/25 Range/Units 10:09 10:17 WBC 9.1 (4.5-10.0) K/mm3 RBC 4.82 (4.6-6.20) M/mm3 Hgb 14.4 (14.0-18.0) g/dL Hct 44.0 (42.0-52.0) % MCV 91.3 (80-100) fl MCH 29.9 (26-34) pg MCHC 32.7 (32-36) g/dl RDW 13.0 (11.5-14.5) % Plt Count 304 (150-375) k/mm3 MPV 10.3 (7.4-10.4) fl Immature Gran % (Auto) 0.2 (0-0.5) % Neut % (Auto) 68.7 (45.5-73.1) % Lymph % (Auto) 21.1 (18.3-44.2) % [place] % (Auto) 7.7 (2.6-8.5) % Eos % (Auto) 1.3 (0-4.4) % Baso % (Auto) 1.0 (0.2-1.2) % Lymph # (Auto) 1.91 (0.9-3.2) K/mm3 [place] # (Auto) 0.7 H (0.1-0.6) K/mm3 Eos # (Auto) 0.1 (0-0.3) K/mm3 Baso # (Auto) 0.1 (0.0-0.1) K/mm3 Abs Immat Gran (auto) 0.02 (0.00-0.031) K/mm3 Absolute Neuts (auto) 6.2 (1.3-6.7) K/mm3 Absolute Nucleated RBC 0.000 (0.0-0.012) K/mm3 Nucleated RBC % 0.0 (0.0-0.2) % PT 13.8 (11.1-14.7) Seconds INR 1.0 APTT 24.4 (22.3-36.8) Seconds D-Dimer 0.76 H (<0.48) ug/mL Sodium 132 L (137-145) mmol/L Potassium 3.9 (3.4-5.0) mmol/L Chloride 101 (98-107) mmol/L Carbon Dioxide 22 (22-30) mmol/L Anion Gap 9 (4-12) mmol/L BUN 10 (9-20) mg/dL Creatinine 0.57 L (0.7-1.3) mg/dL Estim Creat Clear Calc 138 ml/min Estimated GFR > 60 (59 - ) Glucose 347 H (65-110) mg/dL Calcium 8.7 (8.4-10.2) mg/dL Total Bilirubin 1.2 (0.2-1.3) mg/dL AST 38 (17-59) U/L ALT 67 H (6-50) U/L Alkaline Phosphatase 129 H (38-126) U/L Troponin I 0.033 (0.000-0.034) ng/mL NT-Pro-B Natriuret Pep 1470 H (19.9-100) pg/mL Total Protein 6.7 (6.3-8.2) g/dL Albumin 3.7 (3.5-5.1) g/dL Lipase 38 (23-300) U/L Influenza A (RT-PCR) Negative (Negative) Influenza B (RT-PCR) Negative (Negative) RSV (RT-PCR) Negative (Negative) SARS-CoV-2 RNA (RT-PCR) Negative (Negative) <Kizzy Quintana PA-C - Last Filed: 03/25/25 13:58> Lab Results 03/25/25 03/25/25 Range/Units 10:09 10:17 WBC 9.1 (4.5-10.0) K/mm3 RBC 4.82 (4.6-6.20) M/mm3 Hgb 14.4 (14.0-18.0) g/dL Hct 44.0 (42.0-52.0) % MCV 91.3 (80-100) fl MCH 29.9 (26-34) pg MCHC 32.7 (32-36) g/dl RDW 13.0 (11.5-14.5) % Plt Count 304 (150-375) k/mm3 MPV 10.3 (7.4-10.4) fl Immature Gran % (Auto) 0.2 (0-0.5) % Neut % (Auto) 68.7 (45.5-73.1) % Lymph % (Auto) 21.1 (18.3-44.2) % [place] % (Auto) 7.7 (2.6-8.5) % Eos % (Auto) 1.3 (0-4.4) % Baso % (Auto) 1.0 (0.2-1.2) % Lymph # (Auto) 1.91 (0.9-3.2) K/mm3 [place] # (Auto) 0.7 H (0.1-0.6) K/mm3 Eos # (Auto) 0.1 (0-0.3) K/mm3 Baso # (Auto) 0.1 (0.0-0.1) K/mm3 Abs Immat Gran (auto) 0.02 (0.00-0.031) K/mm3 Absolute Neuts (auto) 6.2 (1.3-6.7) K/mm3 Absolute Nucleated RBC 0.000 (0.0-0.012) K/mm3 Nucleated RBC % 0.0 (0.0-0.2) % PT 13.8 (11.1-14.7) Seconds INR 1.0 APTT 24.4 (22.3-36.8) Seconds D-Dimer 0.76 H (<0.48) ug/mL Sodium 132 L (137-145) mmol/L Potassium 3.9 (3.4-5.0) mmol/L Chloride 101 (98-107) mmol/L Carbon Dioxide 22 (22-30) mmol/L Anion Gap 9 (4-12) mmol/L BUN 10 (9-20) mg/dL Creatinine 0.57 L (0.7-1.3) mg/dL Estim Creat Clear Calc 138 ml/min Estimated GFR > 60 (59 - ) Glucose 347 H (65-110) mg/dL Calcium 8.7 (8.4-10.2) mg/dL Total Bilirubin 1.2 (0.2-1.3) mg/dL AST 38 (17-59) U/L ALT 67 H (6-50) U/L Alkaline Phosphatase 129 H (38-126) U/L Troponin I 0.033 (0.000-0.034) ng/mL NT-Pro-B Natriuret Pep 1470 H (19.9-100) pg/mL Total Protein 6.7 (6.3-8.2) g/dL Albumin 3.7 (3.5-5.1) g/dL Lipase 38 (23-300) U/L Influenza A (RT-PCR) Negative (Negative) Influenza B (RT-PCR) Negative (Negative) RSV (RT-PCR) Negative (Negative) SARS-CoV-2 RNA (RT-PCR) Negative (Negative) <Asael Gallardo MD - Last Filed: 03/25/25 17:44> Imaging Data Radiologist's impression: ITS Impressions Chest X-Ray 03/25/25 10:53 IMPRESSION: 1.There is a 2.5 cm masslike density in the left suprahilar region. Differential includes overlapping vasculature, mass or focal consolidation. A chest CT with contrast is recommended. 2. Small opacities in the lower lungs. Differential includes atelectasis/scarring or infiltrates. Chest CTA 03/25/25 11:25 IMPRESSION: 1. No pulmonary embolism. 2. Mild pulmonary edema and small bilateral pleural effusions. <Kizzy Quintana PA-C - Last Filed: 03/25/25 13:58> ECG Data EKG #1: ECG completion date: 03/25/25 <Kizzy Quintana PA-C - Last Filed: 03/25/25 13:58> EKG Interpretation: normal rate, sinus rhythm, LBBB and prolonged QT <Kizzy Quintana PA-C - Last Filed: 03/25/25 13:58> Critical Care Time Critical Care Time Critical Care Time: Yes <Kizzy Quintana PA-C - Last Filed: 03/25/25 13:58> Total Critical Care Time: 35 <Kizzy Quintana PA-C - Last Filed: 03/25/25 13:58> Discharge Plan Discharge Clinical Impression: Hypertensive urgency Fluid overload Qualifiers: Hypervolemia type: unspecified Qualified Code(s): E87.70 - Fluid overload, unspecified <Kizzy Quintana PA-C - Last Filed: 03/25/25 13:58> Patient Disposition: Still a Patient <Kizzy Quintana PA-C - Last Filed: 03/25/25 13:58> Condition: Improved <Kizzy Quintana PA-C - Last Filed: 03/25/25 13:58>
[2025-03-25 10:43] LABS: Troponin I 0.033 ng/mL (0.000-0.034)
[2025-03-25 11:02] LABS: NT Pro B Type Natriuretic Pept 1470 pg/mL (19.9-100)
--- OUTSIDE RECORDS SUMMARY | 2025-03-25 11:05 | XMS_ITS | Clinical Summary ---
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
[2025-03-25 11:09] LABS: Influenza A QL RT-PCR Negative (Negative); Influenza B QL RT-PCR Negative (Negative); RSV RNA, RT-PCR Negative (Negative); SARS-CoV-2 RNA PCR Negative (Negative)
[2025-03-25] MEDS: ASPIRIN 81 MG CHEWABLE TABLET 324 MG PO (11:29)
[2025-03-25] MEDS: FUROSEMIDE INJ 40 MG/4 ML VIAL IV PUSH (13:08)
--- NOTE | 2025-03-25 13:27 | ECG_ITS ---
Test Date: 2025-03-25 13:29:04 Measurements Intervals [place] Rate: 88 P: 28 CO: 203 QRS: -34 QRSD: 166 T: 138 QT: 437 QTc: 531 Interpretive Statements SINUS RHYTHM LEFT AXIS DEVIATION POSSIBLE LEFT ATRIAL ENLARGEMENT LEFT BUNDLE BRANCH BLOCK ABNORMAL ECG Compared to ECG 03/25/2025 10:09:15 No significant changes Electronically Signed On 03-25-2025 14:05:33 CDT by Lenny Griffin D.O.
[2025-03-25 14:31] LABS: Troponin I 0.035 ng/mL (0.000-0.034)
--- NOTE | 2025-03-25 15:27 | PM.IMHP ---
H&P: HPI History of Present Illness Date/Time: 03/25/25 15:27 Chief Complaint: Shortness of Breath Narrative: 49 y/o M with PMH of hypertension, hyperlipidemia, and diabetes presents here with shortness of breath. The patient presents here from home for further evaluation of a cough and shortness of breath. He reports onset approximately 2 days ago. Cough has been dry and nonproductive. Shortness of breath worsens with laying flat. The symptoms are accompanied by left-sided chest pain that worsens with breathing. He describes it as discomfort, nonradiating, and intermittent. Believes he may have pulled something last night as it is tender to palpation near his lateral pec. Of note, the patient reports he has been off his blood pressure medications for the past 6 months due to insurance reasons, renewed and then medications could not be filled. Arrived with a BP of 180/125. He denies associated dizziness, vision changes, headache, midsternal chest pain. Does report some intermittent LE edema that occurs when he stands for an extended period, no weight gain. Initial VS at presentation: 98.1? F, HR 97, R 18, 180/125, and 97% on RA. ED workup showed: No leukocytosis, no anemia, coags within normal limits, elevated D-dimer with a negative chest CTA, sodium 132, creatinine 0.57 and GFR >60, glucose 274, initial troponin 0.033 (repeat 0.035), BNP 1470, and viral PCR negative. CXR showed 82.5 cm masslike density in the left suprahilar region, small opacities in the lower lungs. Chest CTA showed no PE and mild pulmonary edema and small bilateral pleural effusions. EKG showed sinus rhythm, left axis deviation, possible left atrial enlargement, left bundle branch block. Review of Systems Review of Systems: All systems reviewed & are unremarkable except as noted in HPI and below [facility] Past Medical History Medical History (Updated 03/25/25 @ 17:35 by Mari Borges APRN) Depression Anxiety Hyperlipidemia Hypertension Diabetes mellitus Family History Family History Mother Diabetes mellitus Lupus Father Obesity Social History Social History Smoking status: Former smoker Tobacco type: cigarettes Smoking end date: 08/14/12 Alcohol intake: never Substance use: current Substance use type: marijuana Other substance usage details: 5-10 mg edibles several times a week Lack of Transportation: No Lack of Food: Never True Current Housing: I Have Housing Concerned About Future Housing: No Difficulty Paying Gas/Electric Bills: No Difficulty Paying for Meds: YES Currently Unemployed: No Education: High School Diploma/GED Difficulty w/ Childcare or Family Care: No Spiritual care concerns: No Meds Home Medications and Allergies Home Medications ?Medication ?Instructions ?Recorded ?Confirmed ?Type amlodipine 10 mg tablet 10 mg PO DAILY #30 tabs 09/01/21 03/25/25 Rx atorvastatin 20 mg tablet 20 mg PO DAILY #30 tabs 09/01/21 03/25/25 Rx hydrochlorothiazide 25 mg tablet 25 mg PO DAILY #30 tabs 09/01/21 03/25/25 Rx levothyroxine 50 mcg capsule 50 mcg PO DAILY 09/01/21 03/25/25 History metformin 500 mg tablet 500 mg PO BID #60 tabs 09/01/21 03/25/25 Rx metoprolol tartrate 100 mg tablet 100 mg PO BID #30 tabs 09/01/21 03/25/25 Rx tramadol 50 mg tablet 50 mg PO Q6H PRN pain #10 tabs 06/22/24 03/25/25 Rx Allergies Allergy/AdvReac Type Severity Reaction Status Date / Time No Known Allergies Allergy Verified 03/25/25 09:59 Vital Signs Vital Signs - 24 hr 03/25/25 09:58 03/25/25 09:59 03/25/25 10:00 Temperature 98.1 F Pulse Rate 97 95 97 Respiratory Rate 18 24 H Blood Pressure 180/125 H 183/129 H Pulse Oximetry 97 94 94 Oxygen Delivery Room Air 03/25/25 10:01 03/25/25 10:02 03/25/25 10:15 Temperature Pulse Rate 95 94 93 Respiratory Rate 16 30 H 28 H Blood Pressure 180/125 H Pulse Oximetry 95 93 92 Oxygen Delivery 03/25/25 10:17 03/25/25 10:30 03/25/25 10:32 Temperature Pulse Rate 94 95 97 Respiratory Rate 26 H 32 H 38 H Blood Pressure 174/122 H 177/127 H Pulse Oximetry 94 93 93 Oxygen Delivery 03/25/25 10:50 03/25/25 10:51 03/25/25 11:00 Temperature Pulse Rate 96 97 93 Respiratory Rate 34 H 33 H 16 Blood Pressure 183/135 H Pulse Oximetry 97 94 97 Oxygen Delivery 03/25/25 11:02 03/25/25 11:20 03/25/25 11:30 Temperature Pulse Rate 93 91 97 Respiratory Rate 23 H 28 H Blood Pressure 177/122 H 187/139 H Pulse Oximetry 94 95 Oxygen Delivery 03/25/25 11:31 03/25/25 11:32 03/25/25 11:33 Temperature Pulse Rate 99 97 90 Respiratory Rate 22 H 21 H 28 H Blood Pressure 188/136 H Pulse Oximetry 96 94 Oxygen Delivery 03/25/25 11:48 03/25/25 12:01 03/25/25 12:15 Temperature Pulse Rate 87 87 87 Respiratory Rate 24 H 23 H 20 Blood Pressure Pulse Oximetry 95 94 94 Oxygen Delivery 03/25/25 12:30 03/25/25 12:32 03/25/25 12:46 Temperature Pulse Rate 86 86 89 Respiratory Rate 13 13 27 H Blood Pressure 162/120 H Pulse Oximetry 95 95 99 Oxygen Delivery 03/25/25 12:49 03/25/25 13:03 03/25/25 13:15 Temperature Pulse Rate 87 87 88 Respiratory Rate 25 H 26 H 22 H Blood Pressure 168/116 H Pulse Oximetry 91 94 94 Oxygen Delivery 03/25/25 13:17 03/25/25 13:30 03/25/25 13:32 Temperature Pulse Rate 89 87 Respiratory Rate 20 23 H Blood Pressure 162/107 H 152/110 H Pulse Oximetry 95 95 94 Oxygen Delivery 03/25/25 13:35 03/25/25 13:36 03/25/25 13:46 Temperature Pulse Rate 91 Respiratory Rate 29 H Blood Pressure 165/110 H 147/119 H Pulse Oximetry 94 94 93 Oxygen Delivery 03/25/25 13:47 03/25/25 14:00 03/25/25 14:02 Temperature Pulse Rate 89 86 Respiratory Rate 29 H 18 Blood Pressure 163/110 H Pulse Oximetry 94 96 98 Oxygen Delivery 03/25/25 14:15 03/25/25 14:17 03/25/25 14:18 Temperature Pulse Rate 88 90 92 Respiratory Rate 26 H 13 29 H Blood Pressure 166/123 H Pulse Oximetry 97 98 95 Oxygen Delivery 03/25/25 14:43 03/25/25 14:45 03/25/25 15:00 Temperature Pulse Rate 91 90 86 Respiratory Rate 18 17 Blood Pressure Pulse Oximetry 95 93 98 Oxygen Delivery 03/25/25 15:15 03/25/25 15:22 Temperature Pulse Rate 88 88 Respiratory Rate 23 H 16 Blood Pressure 165/113 H 165/113 H Pulse Oximetry 94 95 Oxygen Delivery Exam Const: General: comfortable and no acute distress Other: , male, nontoxic appearance HENMT: Face/Nose/Sinus: Normal nares present Mouth: Yes moist mucous membranes Eyes: General: appearance normal, both eyes and all related structures Sclera: sclerae normal Pupils: Equal, round and reactive pupils present EOM: EOMs intact bilaterally Resp: Effort & Inspection: normal respiratory effort Auscultation: clear to auscultation bilaterally Cardio: Rate: tachycardic (Mild, 90-115) Rhythm: regular rhythm Other: S1-S2 present without murmur, rub, ectopy GI: Other: Abdomen soft, nondistended, nontender. Normoactive bowel sounds in all quadrants. Skin: General skin exam: normal color and no rashes or lesions noted Wounds: no wounds Neuro: Speech: normal speech Motor exam (neuro): 5/5 motor strength present throughout Sensory Exam: normal sensation Other: A&O x4 Extrem: General: normal to inspection Psych: Mental Status: mental status grossly normal Affect: normal affect Other: Good insight and judgment, pleasant H&P: Results Labs Labs: Short CBC 03/25/25 Range/Units 10:09 WBC 9.1 (4.5-10.0) K/mm3 Hgb 14.4 (14.0-18.0) g/dL Hct 44.0 (42.0-52.0) % Plt Count 304 (150-375) k/mm3 BMP 03/25/25 10:09 Sodium 132 L Potassium 3.9 Chloride 101 Carbon Dioxide 22 BUN 10 Creatinine 0.57 L Glucose 347 H Calcium 8.7 Cardiac Enzymes 03/25/25 03/25/25 Range/Units 10:09 13:41 Troponin I 0.033 0.035 H* (0.000-0.034) ng/mL Liver Function 03/25/25 Range/Units 10:09 Total Bilirubin 1.2 (0.2-1.3) mg/dL AST 38 (17-59) U/L ALT 67 H (6-50) U/L Alkaline Phosphatase 129 H (38-126) U/L Albumin 3.7 (3.5-5.1) g/dL Assessment and Plan Assessment and plan (1) CHF (congestive heart failure): Qualifiers: Heart failure chronicity: acute Heart failure type: unspecified Qualified Code(s): I50.9 - Heart failure, unspecified Code(s): I50.9 - Heart failure, unspecified Status: Suspected Assessment and Plan: - BNP 1470 - no echo on file, ordered - started on Lasix 40 mg IV daily - monitor I&Os and daily weights - trend renal function (2) Hypertensive urgency: Code(s): I16.0 - Hypertensive urgency Status: Acute Assessment and Plan: - chronic and off blood pressure medications with last 6 months. Arrived 180/125. - reviewed outside medication list, previously on amlodipine and hydrochlorothiazide. Will restart amlodipine 10 mg daily, due to concern for rapid drop in blood pressure will be is 5 mg today and increase to 10 mg tomorrow. Consider restarting hydrochlorothiazide however may be started on different diuretic due to concern for CHF. Awaiting echo. - monitor (3) Elevated troponin: Code(s): R79.89 - Other specified abnormal findings of blood chemistry Status: Acute Assessment and Plan: - initial EKG showed sinus rhythm, left axis deviation, possible left atrial enlargement, left bundle branch block - troponin: 0.033 -> 0.035 x2 - patient did report left-sided chest pain that worsened with breathing consistent with pleuritic chest pain. Pain also worsens with palpation over pectoral muscle. Troponin mildly elevated but thus far flat, higher suspicion for bump in troponin secondary to hypertensive urgency and possible fluid overload secondary to CHF. Plan for diuresis and initiation of blood pressure medications. Monitor for recurrence of chest pain. Patient educated to alert staff if chest pain recurs. (4) Diabetes mellitus: Qualifiers: Diabetes mellitus complication status: with hyperglycemia Diabetes mellitus [facility] insulin use: without [facility] use Diabetes mellitus type: type 2 Qualified Code(s): E11.65 - Type 2 diabetes mellitus with hyperglycemia Code(s): E11.9 - Type 2 diabetes mellitus without complications Status: Chronic Assessment and Plan: - hypoglycemia protocol - POC blood glucose ACHS - previously on metformin, not currently taking. States he will not go back on this as it caused such significant diarrhea that persisted for months despite cessation. Has also been on Jardiance which worsened his peripheral neuropathy. Patient was also previously on Humalog and Lantus. - correct regimen ordered - high dose TIDWM, based off BMI - A1C ordered Plan Diet: Diabetic GI Prophylaxis: n/a DVT Prophylaxis: Lovenox SQ IV fluids: None Lines/Tubes: Peripheral IV Code Status: Full code Quality VTE Prophylaxis VTE prophylaxis: pharmacologic ordered Hospitalist [facility] Advance Care Plan I have confirmed that the patient's Advanced Care Plan is present, code status is documented, or surrogate decision maker is listed in patient medical record.: Yes Medication Reconciliation I have utilized all available resources to obtain, update and review the patients current medications (includes all prescriptions, OTC, herbals, cannabis, and nutritional supplements).: Yes
--- NOTE | 2025-03-25 16:53 | PC.NURSE ---
Patient arrived to floor. Tele applied. Admission completed.
[2025-03-25 17:27] LABS: Troponin I 0.035 ng/mL (0.000-0.034)
[2025-03-25] MEDS: CAPSAICIN 0.025% CREAM 60 GM TUBE 1 APPLIC TOPICAL (21:42)
[2025-03-25] MEDS: INSULIN ASPART (*BKC) 100 UNITS/ML 6 UNITS SUB-Q (22:23)
[2025-03-26] VITALS (21 sets, daily range): BP systolic 155–162; BP diastolic 100–117; PULSE 79–97; RESP 16–169; TEMP 36.7–36.8; O2SAT 94–100
[2025-03-26 04:51] LABS: Hematocrit 43.1 % (42.0-52.0); Hemoglobin 14.6 g/dL (14.0-18.0); Immature Granulocyte Percent A 0.1 % (0-0.5); Lymphocytes Absolute Auto 2.17 K/mm3 (0.9-3.2); Mean Corpuscular HGB Conc 33.9 g/dl (32-36); Mean Corpuscular Hemoglobin 30.0 pg (26-34); Mean Corpuscular Volume 88.5 fl (80-100); Nucleated Red Blood Cells Absolute Auto 0.000 K/mm3 (0.0-0.012); Nucleated Red Blood Cells Perc 0.0 % (0.0-0.2); Platelet Count Result 292 k/mm3 (150-375); Red Blood Count 4.87 M/mm3 (4.6-6.20); White Blood Count 6.7 K/mm3 (4.5-10.0)
[2025-03-26 05:00] LABS: Hemoglobin A1C 13.5 % (<5.7)
[2025-03-26 05:12] LABS: Alanine Aminotransferase 53 U/L (6-50); Albumin Level 3.6 g/dL (3.5-5.1); Alkaline Phosphatase 106 U/L (38-126); Anion Gap 6 mmol/L (4-12); Aspartate Amino Transferase 35 U/L (17-59); Bilirubin,Total 1.0 mg/dL (0.2-1.3); Blood Urea Nitrogen 10 mg/dL (9-20); Calcium 8.7 mg/dL (8.4-10.2); Carbon Dioxide 28 mmol/L (22-30); Chloride 99 mmol/L (98-107); Estimated CRCL calculation 144 ml/min; Estimated Glomerular Filt Rate > 60; Glucose 188 mg/dL (65-110); Potassium 3.3 mmol/L (3.4-5.0); Sodium 133 mmol/L (137-145); Total Protein 6.5 g/dL (6.3-8.2)
[2025-03-26 05:39] LABS: Thyroid Stimulating Hormone Reflex 2.890 uIU/mL (0.465-4.68)
[2025-03-26] MEDS: ENOXAPARIN 40 MG/0.4 ML SYRINGE SUB-Q (07:44)
[2025-03-26] MEDS: INSULIN ASPART (*BKC) 100 UNITS/ML SUB-Q ×3 (07:44→16:55)
[2025-03-26] MEDS: POTASSIUM CHLORIDE 20 MEQ ER TABLET 40 MEQ PO (08:02)
[2025-03-26] MEDS: FUROSEMIDE INJ 40 MG/4 ML VIAL IV PUSH (08:02)
--- NOTE | 2025-03-26 09:13 | P.PNIM_ITS ---
Progress Note: A&P Assessment and Plan (1) CHF (congestive heart failure): Qualifiers: Heart failure chronicity: acute Heart failure type: unspecified Qualified Code(s): I50.9 - Heart failure, unspecified Code(s): I50.9 - Heart failure, unspecified Status: Suspected Assessment and Plan: - BNP 1470 - no echo on file, ordered - started on Lasix 40 mg IV daily - monitor I&Os and daily weights - trend renal function (2) Hypertensive urgency: Code(s): I16.0 - Hypertensive urgency Status: Acute Assessment and Plan: - chronic and off blood pressure medications with last 6 months. Arrived 180/125. - reviewed outside medication list, previously on amlodipine and hydrochlorothiazide. Will restart amlodipine 10 mg daily, due to concern for rapid drop in blood pressure will be is 5 mg today and increase to 10 mg tomorrow. Consider restarting hydrochlorothiazide however may be started on different diuretic due to concern for CHF. Awaiting echo. - monitor (3) Elevated troponin: Code(s): R79.89 - Other specified abnormal findings of blood chemistry Status: Acute Assessment and Plan: - initial EKG showed sinus rhythm, left axis deviation, possible left atrial enlargement, left bundle branch block - troponin: 0.033 -> 0.035 x2 - patient did report left-sided chest pain that worsened with breathing consistent with pleuritic chest pain. Pain also worsens with palpation over pectoral muscle. Troponin mildly elevated but thus far flat, higher suspicion for bump in troponin secondary to hypertensive urgency and possible fluid overload secondary to CHF. Plan for diuresis and initiation of blood pressure medications. Monitor for recurrence of chest pain. Patient educated to alert staff if chest pain recurs. (4) Diabetes mellitus: Qualifiers: Diabetes mellitus complication status: with hyperglycemia Diabetes mellitus chcf insulin use: without chcf use Diabetes mellitus type: type 2 Qualified Code(s): E11.65 - Type 2 diabetes mellitus with hyperglycemia Code(s): E11.9 - Type 2 diabetes mellitus without complications Status: Chronic Assessment and Plan: - hypoglycemia protocol - POC blood glucose ACHS - previously on metformin, not currently taking. States he will not go back on this as it caused such significant diarrhea that persisted for months despite cessation. Has also been on Jardiance which worsened his peripheral neuropathy. Patient was also previously on Humalog and Lantus. - correct regimen ordered - high dose TIDWM, based off BMI - A1C ordered Plan Diet: Diabetic GI Prophylaxis: n/a DVT Prophylaxis: Lovenox SQ IV fluids: None Lines/Tubes: Peripheral IV Code Status: Full code Subjective Date/time seen: 03/26/25 09:13 Interval history: Patient has uncontrolled HTN and DM. Started on lantus 10 U and currently on SSI. Consulted cardiology Review of Systems Review of Systems: All systems reviewed & are unremarkable except as noted in HPI and below Exam Narrative: mild tachy. Const: General: comfortable and no acute distress Other: , male, nontoxic appearance HENMT: Face/Nose/Sinus: Normal nares present Mouth: Yes moist mucous membranes Eyes: General: appearance normal, both eyes and all related structures Sclera: sclerae normal Pupils: Equal, round and reactive pupils present EOM: EOMs intact bilaterally Resp: Effort & Inspection: normal respiratory effort Auscultation: clear to auscultation bilaterally Cardio: Rate: tachycardic (Mild, 90-115) Rhythm: regular rhythm Other: S1-S2 present without murmur, rub, ectopy GI: Other: Abdomen soft, nondistended, nontender. Normoactive bowel sounds in all quadrants. Skin: General skin exam: normal color and no rashes or lesions noted Wounds: no wounds Neuro: Cranial nerves: Yes Equal, round and reactive pupils present Speech: normal speech Motor exam (neuro): 5/5 motor strength present throughout Sensory Exam: normal sensation Other: A&O x4 Extrem: General: normal to inspection Psych: Mental Status: mental status grossly normal Affect: normal affect Other: Good insight and judgment, pleasant Objective Data Vital Signs Vital Signs: Vital Signs - 24 hr 03/25/25 09:58 03/25/25 09:59 03/25/25 10:00 Temperature 98.1 F Pulse Rate 97 95 97 Respiratory Rate 18 24 H Blood Pressure 180/125 H 183/129 H Pulse Oximetry 97 94 94 Oxygen Delivery Room Air 03/25/25 10:01 03/25/25 10:02 03/25/25 10:15 Temperature Pulse Rate 95 94 93 Respiratory Rate 16 30 H 28 H Blood Pressure 180/125 H Pulse Oximetry 95 93 92 Oxygen Delivery 03/25/25 10:17 03/25/25 10:30 03/25/25 10:32 Temperature Pulse Rate 94 95 97 Respiratory Rate 26 H 32 H 38 H Blood Pressure 174/122 H 177/127 H Pulse Oximetry 94 93 93 Oxygen Delivery 03/25/25 10:50 03/25/25 10:51 03/25/25 11:00 Temperature Pulse Rate 96 97 93 Respiratory Rate 34 H 33 H 16 Blood Pressure 183/135 H Pulse Oximetry 97 94 97 Oxygen Delivery 03/25/25 11:02 03/25/25 11:20 03/25/25 11:30 Temperature Pulse Rate 93 91 97 Respiratory Rate 23 H 28 H Blood Pressure 177/122 H 187/139 H Pulse Oximetry 94 95 Oxygen Delivery 03/25/25 11:31 03/25/25 11:32 03/25/25 11:33 Temperature Pulse Rate 99 97 90 Respiratory Rate 22 H 21 H 28 H Blood Pressure 188/136 H Pulse Oximetry 96 94 Oxygen Delivery 03/25/25 11:48 03/25/25 12:01 03/25/25 12:15 Temperature Pulse Rate 87 87 87 Respiratory Rate 24 H 23 H 20 Blood Pressure Pulse Oximetry 95 94 94 Oxygen Delivery 03/25/25 12:30 03/25/25 12:32 03/25/25 12:46 Temperature Pulse Rate 86 86 89 Respiratory Rate 13 13 27 H Blood Pressure 162/120 H Pulse Oximetry 95 95 99 Oxygen Delivery 03/25/25 12:49 03/25/25 13:03 03/25/25 13:15 Temperature Pulse Rate 87 87 88 Respiratory Rate 25 H 26 H 22 H Blood Pressure 168/116 H Pulse Oximetry 91 94 94 Oxygen Delivery 03/25/25 13:17 03/25/25 13:30 03/25/25 13:32 Temperature Pulse Rate 89 87 Respiratory Rate 20 23 H Blood Pressure 162/107 H 152/110 H Pulse Oximetry 95 95 94 Oxygen Delivery 03/25/25 13:35 03/25/25 13:36 03/25/25 13:46 Temperature Pulse Rate 91 Respiratory Rate 29 H Blood Pressure 165/110 H 147/119 H Pulse Oximetry 94 94 93 Oxygen Delivery 03/25/25 13:47 03/25/25 14:00 03/25/25 14:02 Temperature Pulse Rate 89 86 Respiratory Rate 29 H 18 Blood Pressure 163/110 H Pulse Oximetry 94 96 98 Oxygen Delivery 03/25/25 14:15 03/25/25 14:17 03/25/25 14:18 Temperature Pulse Rate 88 90 92 Respiratory Rate 26 H 13 29 H Blood Pressure 166/123 H Pulse Oximetry 97 98 95 Oxygen Delivery 03/25/25 14:43 03/25/25 14:45 03/25/25 15:00 Temperature Pulse Rate 91 90 86 Respiratory Rate 18 17 Blood Pressure Pulse Oximetry 95 93 98 Oxygen Delivery 03/25/25 15:15 03/25/25 15:22 03/25/25 15:35 Temperature 98.7 F Pulse Rate 88 88 92 Respiratory Rate 23 H 16 20 Blood Pressure 165/113 H 165/113 H 184/130 H Pulse Oximetry 94 95 98 Oxygen Delivery 03/25/25 16:00 03/25/25 16:00 03/25/25 18:00 Temperature Pulse Rate 87 91 Respiratory Rate Blood Pressure Pulse Oximetry Oxygen Delivery Room Air 03/25/25 19:18 03/25/25 20:00 03/25/25 20:00 Temperature 98.4 F Pulse Rate 90 97 97 Respiratory Rate 18 Blood Pressure 155/111 H Pulse Oximetry 94 Oxygen Delivery Room Air 03/25/25 22:00 03/25/25 23:32 03/26/25 00:00 Temperature 98.2 F Pulse Rate 90 90 86 Respiratory Rate 17 Blood Pressure 178/113 H Pulse Oximetry 98 Oxygen Delivery 03/26/25 00:00 03/26/25 02:00 03/26/25 03:22 Temperature 98.2 F Pulse Rate 97 79 87 Respiratory Rate 18 Blood Pressure 155/108 H Pulse Oximetry 94 Oxygen Delivery Room Air 03/26/25 04:00 03/26/25 04:00 03/26/25 06:00 Temperature Pulse Rate 82 97 82 Respiratory Rate Blood Pressure Pulse Oximetry Oxygen Delivery Room Air 03/26/25 07:37 03/26/25 09:00 Temperature 98.1 F Pulse Rate 82 Respiratory Rate 20 Blood Pressure 157/117 H Pulse Oximetry 98 96 Oxygen Delivery Room Air Intake/Output Intake/Output: Intake & Output 03/23/25 03/24/25 03/25/25 03/26/25 23:59 23:59 23:59 23:59 Intake Total 240 240 Output Total 900 Balance -660 240 Meds/Results Medications: Active Medications Generic Name Dose Route Start Last Admin Trade Name Freq PRN Reason Stop Dose Admin Amlodipine Besylate 10 mg 03/26/25 09:00 03/26/25 07:44 Amlodipine Besylate 10 Mg Tablet PO 10 mg DAILY SHERRY Administration Capsaicin 1 applic 03/25/25 21:23 03/25/25 21:42 Capsaicin 0.025% Cream 60 Gm Tube TOPICAL 1 applic Q6H PRN Administration Muscle/Joint Pain Dextrose 12.5 gm 03/25/25 17:34 Dextrose 50% 25 Gm/50 Ml Syringe IV PUSH PRN PRN Hypoglycemia Protocol Enoxaparin Sodium 40 mg 03/26/25 09:00 03/26/25 07:44 Enoxaparin 40 Mg/0.4 Ml Syringe SUB-Q 40 mg DAILY SHERRY Administration Furosemide 40 mg 03/26/25 09:00 03/26/25 08:02 Furosemide Inj 40 Mg/4 Ml Vial IV PUSH 40 mg DAILY SHERRY Administration Glucagon 1 mg 03/25/25 17:34 Glucagon For Inj 1 Mg Vial IM PRN PRN Hypoglycemia Protocol Glucose 15 gm 03/25/25 17:34 Glucose Oral Gel 15 Gm Of Glucse In 37.5 Gm Tube PO PRN PRN Hypoglycemia Protocol Dextrose 1,000 mls @ 100 mls/hr 03/25/25 17:34 Dextrose 5% 1,000 Ml IVPB PRN PRN Hypoglycemia Protocol Insulin Aspart 4 - 8 units 03/26/25 08:00 03/26/25 07:44 Insulin Aspart (*Bkc) 100 Units/Ml SUB-Q 5 units TIDWM SHERRY Administration Protocol Insulin Glargine 10 units 03/26/25 21:00 Insulin Glargine (*Bkc) 100 Units/Ml SUB-Q HS SHERRY Perflutren Lipid Microsphere 0 ml 03/25/25 17:24 Perflutren Lipid Microspheres 1.5 Ml Vial Diluted To 10 Ml Total Volume IV PUSH 03/28/25 17:24 ONCE PRN adequate visualization Protocol Radiology Results: ITS Impressions Chest X-Ray 03/25/25 10:53 IMPRESSION: 1.There is a 2.5 cm masslike density in the left suprahilar region. Differential includes overlapping vasculature, mass or focal consolidation. A chest CT with contrast is recommended. 2. Small opacities in the lower lungs. Differential includes atelectasis/scarring or infiltrates. Chest CTA 03/25/25 11:25 IMPRESSION: 1. No pulmonary embolism. 2. Mild pulmonary edema and small bilateral pleural effusions. Labs Labs: Laboratory Results - last 24 hr 03/25/25 03/25/25 03/25/25 10:09 10:17 13:41 WBC 9.1 RBC 4.82 Hgb 14.4 Hct 44.0 MCV 91.3 MCH 29.9 MCHC 32.7 RDW 13.0 Plt Count 304 MPV 10.3 Immature Gran % (Auto) 0.2 Neut % (Auto) 68.7 Lymph % (Auto) 21.1 [place] % (Auto) 7.7 Eos % (Auto) 1.3 Baso % (Auto) 1.0 Lymph # (Auto) 1.91 [place] # (Auto) 0.7 H Eos # (Auto) 0.1 Baso # (Auto) 0.1 Abs Immat Gran (auto) 0.02 Absolute Neuts (auto) 6.2 Absolute Nucleated RBC 0.000 Nucleated RBC % 0.0 PT 13.8 INR 1.0 APTT 24.4 D-Dimer 0.76 H Sodium 132 L Potassium 3.9 Chloride 101 Carbon Dioxide 22 Anion Gap 9 BUN 10 Creatinine 0.57 L Estim Creat Clear Calc 138 Estimated GFR > 60 Glucose 347 H POC Capillary Glucose Hemoglobin A1c Calcium 8.7 Total Bilirubin 1.2 AST 38 ALT 67 H Alkaline Phosphatase 129 H Troponin I 0.033 0.035 H* NT-Pro-B Natriuret Pep 1470 H Total Protein 6.7 Albumin 3.7 Lipase 38 TSH (Reflex) Influenza A (RT-PCR) Negative Influenza B (RT-PCR) Negative RSV (RT-PCR) Negative SARS-CoV-2 RNA (RT-PCR) Negative 03/25/25 03/25/25 03/25/25 15:46 16:45 21:17 WBC RBC Hgb Hct MCV MCH MCHC RDW Plt Count MPV Immature Gran % (Auto) Neut % (Auto) Lymph % (Auto) [place] % (Auto) Eos % (Auto) Baso % (Auto) Lymph # (Auto) [place] # (Auto) Eos # (Auto) Baso # (Auto) Abs Immat Gran (auto) Absolute Neuts (auto) Absolute Nucleated RBC Nucleated RBC % PT INR APTT D-Dimer Sodium Potassium Chloride Carbon Dioxide Anion Gap BUN Creatinine Estim Creat Clear Calc Estimated GFR Glucose POC Capillary Glucose 274 H 317 H Hemoglobin A1c Calcium Total Bilirubin AST ALT Alkaline Phosphatase Troponin I 0.035 H* NT-Pro-B Natriuret Pep Total Protein Albumin Lipase TSH (Reflex) Influenza A (RT-PCR) Influenza B (RT-PCR) RSV (RT-PCR) SARS-CoV-2 RNA (RT-PCR) 03/26/25 03/26/25 04:23 07:21 WBC 6.7 RBC 4.87 Hgb 14.6 Hct 43.1 MCV 88.5 MCH 30.0 MCHC 33.9 RDW 12.9 Plt Count 292 MPV 10.5 H Immature Gran % (Auto) 0.1 Neut % (Auto) 55.2 Lymph % (Auto) 32.5 [place] % (Auto) 8.5 Eos % (Auto) 2.4 Baso % (Auto) 1.3 H Lymph # (Auto) 2.17 [place] # (Auto) 0.6 Eos # (Auto) 0.2 Baso # (Auto) 0.1 Abs Immat Gran (auto) 0.01 Absolute Neuts (auto) 3.7 Absolute Nucleated RBC 0.000 Nucleated RBC % 0.0 PT INR APTT D-Dimer Sodium 133 L Potassium 3.3 L Chloride 99 Carbon Dioxide 28 Anion Gap 6 BUN 10 Creatinine 0.62 L Estim Creat Clear Calc 144 Estimated GFR > 60 Glucose 188 H POC Capillary Glucose 266 H Hemoglobin A1c 13.5 H Calcium 8.7 Total Bilirubin 1.0 AST 35 ALT 53 H Alkaline Phosphatase 106 Troponin I NT-Pro-B Natriuret Pep Total Protein 6.5 Albumin 3.6 Lipase TSH (Reflex) 2.890 Influenza A (RT-PCR) Influenza B (RT-PCR) RSV (RT-PCR) SARS-CoV-2 RNA (RT-PCR) Quality VTE Prophylaxis VTE prophylaxis: pharmacologic ordered Hospitalist MIPS Advance Care Plan I have confirmed that the patient's Advanced Care Plan is present, code status is documented, or surrogate decision maker is listed in patient medical record.: Yes Medication Reconciliation I have utilized all available resources to obtain, update and review the patients current medications (includes all prescriptions, OTC, herbals, cannabis, and nutritional supplements).: Yes
--- NOTE | 2025-03-26 12:53 | P.CONCA_ITS ---
Assessment and Plan Assessment and plan (1) Hypertensive urgency: Code(s): I16.0 - Hypertensive urgency Status: Acute Assessment and Plan: BP markedly elevated. This is due to lack of medications. He makes sense for him to be on an ARB or medications that would actually help treat his heart failure in addition to his blood pressure. Therefore will start him on losartan 25 mg p.o. daily. Resume a beta-july. Will start with carvedilol 6.25 mg p.o. b.i.d. Hydrochlorothiazide can be continued but this may be changing to spironolactone in future. If cost effective adding medications such as Jardiance or changing losartan to Entresto would also be of benefit. Depending on the results of the echocardiogram, may discontinue the amlodipine (2) CHF (congestive heart failure): Qualifiers: Heart failure type: unspecified Heart failure chronicity: acute Q ualified Code(s): I50.9 - Heart failure, unspecified Code(s): I50.9 - Heart failure, unspecified Status: Suspected Assessment and Plan: As detailed above. Adding losartan, metoprolol. Currently undergoing diuresis with furosemide 40 mg IV daily which should be continued at least for another 24 hours. (3) Elevated troponin: Code(s): R79.89 - Other specified abnormal findings of blood chemistry Status: Acute Assessment and Plan: Not related to ACS. More likely secondary to marked hypertension plus/minus heart failure (4) Hypertension associated with diabetes: Code(s): E11.59 - Type 2 diabetes mellitus with other circulatory complications; I15.2 - Hypertension secondary to endocrine disorders Status: Acute Assessment and Plan: Uncontrolled (5) Hyperlipidemia associated with type 2 diabetes mellitus: Code(s): E11.69 - Type 2 diabetes mellitus with other specified complication; E78.5 - Hyperlipidemia, unspecified Status: Acute Assessment and Plan: Will start atorvastatin 20 mg daily (6) Hypokalemia: Code(s): E87.6 - Hypokalemia Status: Acute Assessment and Plan: Potassium is already replaced History of Present Illness History of Present Illness Consult date/time: 03/26/25 12:53 Reason For Visit: hypertensive urgency,fluid overload Narrative: Reason for consultation: Elevated troponin Date of service 03/26/2025 Requesting provider: Dr. Lopez History: Patient is a 49-year-old male who has a history of hypertension, hyperlipidemia and diabetes. He has been not taking any medications for at least 6 months or so. Came to hospital because of shortness of breath. Shortness breath has been present for the past couple of days. He also had nocturnal cough on lying flat. He does describe some paroxysmal nocturnal dyspnea. He has some dizziness also at work. He had some ill-defined anterior chest soreness that was worsened by breathing. Has had some lower extremity swelling which is also been present off and on for the past 2 years. He came to hospital is blood pressure was markedly elevated greater than 180/120. Troponin upon ends were tested and were minimally elevated at 0.035. He denies any palpitations, syncope, palpitations. He has been started on diuretics and is breathing easier. Chest x-ray shows pulmonary vascular congestion and BNP was 14 70. EKG shows left bundle-branch block. Review of Systems 2 Review of Systems: All systems reviewed & are unremarkable except as noted in HPI and below Constitutional: Constitutional: Denies body ache(s) Eyes: Eyes: Denies blurry vision ENT: Reports Normal hearing present Cardiovascular: Cardiovascular: Denies chest pain Respiratory: Respiratory: Reports cough and Reports dyspnea Gastrointestinal: Gastrointestinal: Denies abdominal pain Genitourinary: Genitourinary: Denies hematuria Musculoskeletal: Musculoskeletal: Denies back pain Integumentary/Breasts: Skin/Breast: Denies pruritus Neurologic: Denies Abnormal speech present Psychiatric: Psychiatric: Denies anxiety Endocrine: Endocrine: Denies excessive sweating Hematologic/Lymphatic: Hematologic/Lymphatic: Denies easy bleeding Allergic/Immunologic: Allergic/Immunologic: Denies GI upset with certain foods PMFSH Past Medical History Medical History (Updated 03/26/25 @ 12:57 by Neftali Hairston MD) Hypokalemia Hyperlipidemia associated with type 2 diabetes mellitus Hypertension associated with diabetes Depression Anxiety Hyperlipidemia Hypertension Diabetes mellitus Family History Family History Mother Diabetes mellitus Lupus Father Obesity Social History Social History Smoking status: Former smoker Tobacco type: cigarettes Smoking end date: 08/14/12 Alcohol intake: never Substance use: current Substance use type: marijuana Other substance usage details: 5-10 mg edibles several times a week Lack of Transportation: No Lack of Food: Never True Current Housing: I Have Housing Concerned About Future Housing: No Difficulty Paying Gas/Electric Bills: No Difficulty Paying for Meds: YES Currently Unemployed: No Education: High School Diploma/GED Difficulty w/ Childcare or Family Care: No Spiritual care concerns: No Meds Home Medications and Allergies Home Medications ?Medication ?Instructions ?Recorded ?Confirmed ?Type amlodipine 10 mg tablet 10 mg PO DAILY #30 tabs 09/01/21 03/25/25 Rx atorvastatin 20 mg tablet 20 mg PO DAILY #30 tabs 09/01/21 03/25/25 Rx hydrochlorothiazide 25 mg tablet 25 mg PO DAILY #30 tabs 09/01/21 03/25/25 Rx levothyroxine 50 mcg capsule 50 mcg PO DAILY 09/01/21 03/25/25 History metformin 500 mg tablet 500 mg PO BID #60 tabs 09/01/21 03/25/25 Rx metoprolol tartrate 100 mg tablet 100 mg PO BID #30 tabs 09/01/21 03/25/25 Rx tramadol 50 mg tablet 50 mg PO Q6H PRN pain #10 tabs 06/22/24 03/25/25 Rx Allergies Allergy/AdvReac Type Severity Reaction Status Date / Time No Known Allergies Allergy Verified 03/25/25 09:59 Vital Signs Vital Signs - 24 hr 03/25/25 13:03 03/25/25 13:15 03/25/25 13:17 Temperature Pulse Rate 87 88 89 Respiratory Rate 26 H 22 H 20 Blood Pressure 162/107 H Pulse Oximetry 94 94 95 Oxygen Delivery 03/25/25 13:30 03/25/25 13:32 03/25/25 13:35 Temperature Pulse Rate 87 Respiratory Rate 23 H Blood Pressure 152/110 H 165/110 H Pulse Oximetry 95 94 94 Oxygen Delivery 03/25/25 13:36 03/25/25 13:46 03/25/25 13:47 Temperature Pulse Rate 91 Respiratory Rate 29 H Blood Pressure 147/119 H 163/110 H Pulse Oximetry 94 93 94 Oxygen Delivery 03/25/25 14:00 03/25/25 14:02 03/25/25 14:15 Temperature Pulse Rate 89 86 88 Respiratory Rate 29 H 18 26 H Blood Pressure Pulse Oximetry 96 98 97 Oxygen Delivery 03/25/25 14:17 03/25/25 14:18 03/25/25 14:43 Temperature Pulse Rate 90 92 91 Respiratory Rate 13 29 H 18 Blood Pressure 166/123 H Pulse Oximetry 98 95 95 Oxygen Delivery 03/25/25 14:45 03/25/25 15:00 03/25/25 15:15 Temperature Pulse Rate 90 86 88 Respiratory Rate 17 23 H Blood Pressure 165/113 H Pulse Oximetry 93 98 94 Oxygen Delivery 03/25/25 15:22 03/25/25 15:35 03/25/25 16:00 Temperature 37.1 C Pulse Rate 88 92 Respiratory Rate 16 20 Blood Pressure 165/113 H 184/130 H Pulse Oximetry 95 98 Oxygen Delivery Room Air 03/25/25 16:00 03/25/25 18:00 03/25/25 19:18 Temperature 36.9 C Pulse Rate 87 91 90 Respiratory Rate 18 Blood Pressure 155/111 H Pulse Oximetry 94 Oxygen Delivery 03/25/25 20:00 03/25/25 20:00 03/25/25 22:00 Temperature Pulse Rate 97 97 90 Respiratory Rate Blood Pressure Pulse Oximetry Oxygen Delivery Room Air 03/25/25 23:32 03/26/25 00:00 03/26/25 00:00 Temperature 36.8 C Pulse Rate 90 86 97 Respiratory Rate 17 Blood Pressure 178/113 H Pulse Oximetry 98 Oxygen Delivery Room Air 03/26/25 02:00 03/26/25 03:22 03/26/25 04:00 Temperature 36.8 C Pulse Rate 79 87 82 Respiratory Rate 18 Blood Pressure 155/108 H Pulse Oximetry 94 Oxygen Delivery 03/26/25 04:00 03/26/25 06:00 03/26/25 07:37 Temperature 36.7 C Pulse Rate 97 82 82 Respiratory Rate 20 Blood Pressure 157/117 H Pulse Oximetry 98 Oxygen Delivery Room Air 03/26/25 08:00 03/26/25 09:00 03/26/25 10:00 Temperature Pulse Rate 87 89 Respiratory Rate Blood Pressure Pulse Oximetry 96 Oxygen Delivery Room Air 03/26/25 11:45 03/26/25 12:00 Temperature 36.8 C Pulse Rate 89 89 Respiratory Rate 20 Blood Pressure 162/102 H Pulse Oximetry 98 Oxygen Delivery Exam 2 Narrative: Awake alert oriented. Appears to be in no acute distress. Appears stated age Const: General: comfortable and no acute distress HENMT: Ears: TM's normal bilaterally Face/Nose/Sinus: Normal nares present Mouth: Yes moist mucous membranes Eyes: General: appearance normal, both eyes and all related structures S clera: sclerae normal Neck: Neck: supple and no JVD Chest: Other: No reproducible chest wall pain to palpation Resp: Effort & Inspection: normal respiratory effort Auscultation: clear to auscultation bilaterally Cardio: Rate: regular rate Rhythm: regular rhythm Heart sounds: no murmurs GI: Inspection: non-distended GI Palp: Yes Soft to palpation Skin: General skin exam: normal color and no rashes or lesions noted Neuro: Speech: normal speech Sensory Exam: normal sensation Extrem: General: normal to inspection Psych: Mental Status: mental status grossly normal Affect: normal affect Results Labs and Meds 03/26/25 04:23 03/26/25 04:23 Lab results: Cardiac Enzymes 03/25/25 03/25/25 03/26/25 Range/Units 13:41 16:45 04:23 AST 35 (17-59) U/L Troponin I 0.035 H* 0.035 H* (0.000-0.034) ng/mL CBC 03/26/25 Range/Units 04:23 WBC 6.7 (4.5-10.0) K/mm3 RBC 4.87 (4.6-6.20) M/mm3 Hgb 14.6 (14.0-18.0) g/dL Hct 43.1 (42.0-52.0) % Plt Count 292 (150-375) k/mm3 Lymph # (Auto) 2.17 (0.9-3.2) K/mm3 [place] # (Auto) 0.6 (0.1-0.6) K/mm3 Eos # (Auto) 0.2 (0-0.3) K/mm3 Baso # (Auto) 0.1 (0.0-0.1) K/mm3 Comprehensive Metabolic Panel 03/26/25 Range/Units 04:23 Sodium 133 L (137-145) mmol/L Potassium 3.3 L (3.4-5.0) mmol/L Chloride 99 (98-107) mmol/L Carbon Dioxide 28 (22-30) mmol/L BUN 10 (9-20) mg/dL Creatinine 0.62 L (0.7-1.3) mg/dL Glucose 188 H (65-110) mg/dL Calcium 8.7 (8.4-10.2) mg/dL AST 35 (17-59) U/L ALT 53 H (6-50) U/L Alkaline Phosphatase 106 (38-126) U/L Total Protein 6.5 (6.3-8.2) g/dL Albumin 3.6 (3.5-5.1) g/dL Intake and Output 03/25/25 03/26/25 03/26/25 23:59 07:59 15:59 Intake Total 240 240 240 Balance 240 240 240 Intake: Oral 240 240 240 Other: # Unmeasured Voids 2 Patient Weight 03/26/25 23:59 Weight 94.4 kg EKG is personally reviewed and independently interpreted showing left bundle branch block in sinus rhythm. Abnormal ECG
[2025-03-26] MEDS: LOSARTAN POTASSIUM 25 MG TABLET PO (13:16)
--- NOTE | 2025-03-26 17:24 | ECHO_ITS ---
Patient Info Name: Neftali Blanca Age: 49 years : 1975 Gender: Male Ht: 70 in Wt: 209 lbs BSA: 2.19 m2 HR: 86 bpm BP: 155 / 108 mmHg Heart Rhythm: Sinus Rhythm Technical Quality: Good Exam Date: 03/26/2025 10:12 AM Patient Status: O Admit Date: 03/25/2025 Exam Type: CA echo doppler color flow Complete two-dimensional, color flow and Doppler transthoracic echocardiogram is performed. Staff Referring Physician: Kizzy Quintana [facility] Patient Service Representative: Nicolasa Correia Attending Provider: Ian Lopez Summary 1. Complete two-dimensional, color flow and Doppler transthoracic echocardiogram is performed. 2. Left ventricular chamber dimension is mildly enlarged. 3. Left ventricular systolic function is severely reduced, estimated at 30-35. 4. There is moderately increased left ventricular wall thickness. 5. Left ventricular septal wall motion is abnormal with septal motion related to bundle branch block. 6. The left ventricular diastolic function is grade II diastolic dysfunction. 7. Left atrial chamber dimension is moderately enlarged. 8. The mitral valve has a calcified annulus. 9. There is moderate to severe mitral valve regurgitation. 10. There is mild tricuspid valve regurgitation. 11. Moderate pulmonary hypertension, estimated pulmonary arterial systolic pressure is 55 mmHg. Left Ventricle Left ventricular chamber dimension is mildly enlarged. Left ventricular systolic function is severely reduced, estimated at 30-35. There is moderately increased left ventricular wall thickness. Left ventricular septal wall motion is abnormal with septal motion related to bundle branch block. The left ventricular diastolic function is grade II diastolic dysfunction. Right Ventricle Right ventricular chamber dimension is normal. Right ventricular systolic function is normal. Left Atria Left atrial chamber dimension is moderately enlarged. Right Atria Right atrial chamber dimension is normal. Atrial Septum Intact interatrial septum visualized by color flow imaging. Aortic Valve The aortic valve is trileaflet. There is mild aortic valve sclerosis. There is no aortic valve stenosis. There is trace aortic valve regurgitation. There is mild aortic valve calcification. Pulmonic Valve The pulmonic valve is normal. There is no pulmonic valve stenosis. There is trace pulmonic regurgitation. Mitral Valve The mitral valve has a calcified annulus. There is no mitral valve stenosis. There is moderate to severe mitral valve regurgitation. Tricuspid Valve The tricuspid valve leaflets are normal. There is no significant tricuspid valve stenosis. There is mild tricuspid valve regurgitation. Moderate pulmonary hypertension, estimated pulmonary arterial systolic pressure is 55 mmHg. Pericardium/Pleural The pericardium appears normal. There is trivial pericardial effusion. Inferior Vena Cava Dilated inferior vena cava with <50% collapse upon inspiration consistent with elevated right atrial pressure, 15 mmHg. Aorta The aortic root size at the sinus of Valsalva is normal. The prox ascending aorta size is normal. Left Ventricular Outflow Tract Name Value Normal LVOT 2D LVOT Diameter 2.2 cm LVOT Doppler LVOT Peak Velocity 91 cm/s LVOT Peak Gradient 3 mmHg LVOT Mean Gradient 2 mmHg LVOT VTI 16 cm LVOT VTI/AV VTI Ratio 0.7 LVOT Stroke Volume 62 ml LVOT CO 15.7 l/min LVOT CI 7.2 l/min/m2 Pulmonic Valve Name Value Normal PV Doppler PV Peak Velocity 86 cm/s PV Peak Gradient 3 mmHg Mitral Valve Name Value Normal MV Diastolic Function MV E Peak Velocity 98 cm/s MV A Peak Velocity 87 cm/s MV E/A 1.1 MV Decel Time (PW) 116 ms MV Annular TDI MV E/e' (Septal) 22.9 MV E/e' (Lateral) 19.6 MV E/e' (Average) 21.3 Tricuspid Valve Name Value Normal TV Regurgitation Doppler TR Peak Velocity 316 cm/s TR Peak Gradient 40 mmHg Estimated PAP/RSVP RA Pressure 15 mmHg <=5 PA Systolic Pressure 55 mmHg <36 RV Systolic Pressure 55 mmHg <36 TV Annular TDI TV Lateral Romina s' Velocity 10.6 cm/s >=9.5 Aorta Name Value Normal Ascending Aorta Ao Root Diameter (MM) 3.8 cm Ao Root Diam Index (MM) 1.7 cm/m2 Aortic Valve Name Value Normal AV Doppler AV Peak Velocity 140 cm/s AV Peak Gradient 8 mmHg AV Mean Gradient 5 mmHg AV VTI 23 cm AV Area (Cont Eq VTI) 2.7 cm2 >=3.0 AV Area (Cont Eq Juancarlos) 2.5 cm2 AV DI (Juancarlos) 0.65 AV Regurgitation 2D LVOT Area 3.8 cm2 Ventricles Name Value Normal LV Dimensions 2D/MM IVS Diastolic Thickness (2D) 1.8 cm 0.6-1.0 LVID Diastole (2D) 5.3 cm 4.2-5.8 LVIW Diastolic Thickness (2D) 1.1 cm 0.6-1.0 LVID Systole (2D) 4.7 cm 2.5-4.0 LVOT Diameter 2.2 cm LV Mass (2D Cubed) 340.23 g 88.00-224.00 LV Mass Index (2D Cubed) 156 g/m2 49-115 Relative Wall Thickness (2D) 0.40 <=0.42 LV Fractional Shortening/Ejection Fraction 2D/MM LV Fractional Shortening (2D) 11 % 25-43 LV EF (2D Teichholz) 24 % LV Diastolic Volume (4C MOD) 161 ml LV EF (4C MOD) 36 % LV Diastolic Volume (2C MOD) 171 ml LV EF (2C MOD) 36 % LV Diastolic Volume (BP MOD) 164 ml 62-150 LV Diastolic Volume Index (BP MOD) 75 ml/m2 34-74 LV Systolic Volume (BP MOD) 108 ml 21-61 LV Systolic Volume Index (BP MOD) 49 ml/m2 11-31 LV EF (BP MOD) 35 % 52-72 LV Diastolic Length (4C) 9.8 cm LV Systolic Length (4C) 8.4 cm LV Stroke Volume (4C MOD) 57 ml RV Dimensions 2D/MM RVID Diastole (2D) 4.6 cm 2.1-3.5 Atria Name Value Normal LA Dimensions LA Dimension (MM) 4.2 cm 3.0-4.0 LA Volume (4C A-L) 102 ml LA Volume (BP A-L) 119 ml RA Dimensions RA Systolic Major [place] Length (4C) 5.0 cm 2.1-2.7 RA Area (4C) 18.4 cm2 <=18.0 Report Signatures
[2025-03-26] MEDS: CAPSAICIN 0.025% CREAM 60 GM TUBE 1 APPLIC TOPICAL (20:12)
[2025-03-26] MEDS: INSULIN GLARGINE (*BKC) 100 UNITS/ML 10 UNITS SUB-Q (20:19)
[2025-03-26] MEDS: ACETAMINOPHEN 325 MG TABLET 650 MG PO (23:50)
[2025-03-27] VITALS (17 sets, daily range): BP systolic 117–164; BP diastolic 82–109; PULSE 74–98; RESP 16–20; TEMP 36.6–36.9; O2SAT 94–99; BMI 29.8
[2025-03-27 04:04] LABS: Hematocrit 41.1 % (42.0-52.0); Hemoglobin 13.4 g/dL (14.0-18.0); Mean Corpuscular HGB Conc 32.6 g/dl (32-36); Mean Corpuscular Hemoglobin 29.5 pg (26-34); Mean Corpuscular Volume 90.5 fl (80-100); Platelet Count Result 297 k/mm3 (150-375); Red Blood Count 4.54 M/mm3 (4.6-6.20); White Blood Count 7.3 K/mm3 (4.5-10.0)
[2025-03-27 04:21] LABS: Alanine Aminotransferase 42 U/L (6-50); Albumin Level 3.2 g/dL (3.5-5.1); Alkaline Phosphatase 90 U/L (38-126); Anion Gap 5 mmol/L (4-12); Aspartate Amino Transferase 30 U/L (17-59); Bilirubin,Total 0.7 mg/dL (0.2-1.3); Blood Urea Nitrogen 10 mg/dL (9-20); Calcium 8.5 mg/dL (8.4-10.2); Carbon Dioxide 25 mmol/L (22-30); Chloride 102 mmol/L (98-107); Estimated CRCL calculation 125 ml/min; Estimated Glomerular Filt Rate > 60; Glucose 230 mg/dL (65-110); Potassium 3.5 mmol/L (3.4-5.0); Sodium 132 mmol/L (137-145); Total Protein 5.8 g/dL (6.3-8.2)
[2025-03-27 04:25] LABS: NT Pro B Type Natriuretic Pept 704 pg/mL (19.9-100)
[2025-03-27] MEDS: ACETAMINOPHEN 325 MG TABLET 650 MG PO ×2 (06:53→09:01)
[2025-03-27] MEDS: INSULIN ASPART (*BKC) 100 UNITS/ML SUB-Q ×3 (09:00→17:00)
[2025-03-27] MEDS: ATORVASTATIN 20 MG TABLET PO (09:03)
[2025-03-27] MEDS: LOSARTAN POTASSIUM 25 MG TABLET PO (09:03)
[2025-03-27] MEDS: FUROSEMIDE INJ 40 MG/4 ML VIAL IV PUSH (09:05)
[2025-03-27] MEDS: ENOXAPARIN 40 MG/0.4 ML SYRINGE SUB-Q (09:07)
--- NOTE | 2025-03-27 09:26 | ECG_ITS ---
Test Date: 2025-03-27 09:53:11 Measurements Intervals [place] Rate: 85 P: 2 IA: 180 QRS: -34 QRSD: 164 T: 141 QT: 432 QTc: 516 Interpretive Statements SINUS RHYTHM LEFT AXIS DEVIATION POSSIBLE LEFT ATRIAL ENLARGEMENT LEFT BUNDLE BRANCH BLOCK BASELINE WANDER- V3-V6 ABNORMAL ECG Compared to ECG 03/25/2025 13:29:04 No significant changes Electronically Signed On 03-27-2025 12:33:14 CDT by Lenny Griffin D.O.
--- NOTE | 2025-03-27 09:47 | PM.IMPN ---
Progress Note: A&P Assessment and Plan (1) CHF (congestive heart failure): Qualifiers: Heart failure chronicity: acute Heart failure type: unspecified Qualified Code(s): I50.9 - Heart failure, unspecified Code(s): I50.9 - Heart failure, unspecified Status: Suspected Assessment and Plan: - BNP 1470 - no echo on file, ordered - started on Lasix 40 mg IV daily - monitor I&Os and daily weights - trend renal function -chest CTA shows no dissection (2) Hypertensive urgency: Code(s): I16.0 - Hypertensive urgency Status: Acute Assessment and Plan: - chronic and off blood pressure medications with last 6 months. Arrived 180/125. - reviewed outside medication list, previously on amlodipine and hydrochlorothiazide. Will restart amlodipine 10 mg daily, due to concern for rapid drop in blood pressure will be is 5 mg today and increase to 10 mg tomorrow. Consider restarting hydrochlorothiazide however may be started on different diuretic due to concern for CHF. Awaiting echo. - monitor (3) Elevated troponin: Code(s): R79.89 - Other specified abnormal findings of blood chemistry Status: Acute Assessment and Plan: - initial EKG showed sinus rhythm, left axis deviation, possible left atrial enlargement, left bundle branch block - troponin: 0.033 -> 0.035 x2 - patient did report left-sided chest pain that worsened with breathing consistent with pleuritic chest pain. Pain also worsens with palpation over pectoral muscle. Troponin mildly elevated but thus far flat, higher suspicion for bump in troponin secondary to hypertensive urgency and possible fluid overload secondary to CHF. Plan for diuresis and initiation of blood pressure medications. Monitor for recurrence of chest pain. Patient educated to alert staff if chest pain recurs. (4) Diabetes mellitus: Qualifiers: Diabetes mellitus complication status: with hyperglycemia Diabetes mellitus intermediate insulin use: without intermediate use Diabetes mellitus type: type 2 Qualified Code(s): E11.65 - Type 2 diabetes mellitus with hyperglycemia Code(s): E11.9 - Type 2 diabetes mellitus without complications Status: Chronic Assessment and Plan: - hypoglycemia protocol - POC blood glucose ACHS - previously on metformin, not currently taking. States he will not go back on this as it caused such significant diarrhea that persisted for months despite cessation. Has also been on Jardiance which worsened his peripheral neuropathy. Patient was also previously on Humalog and Lantus. - correct regimen ordered - high dose TIDWM, based off BMI - A1C ordered Plan Diet: Diabetic GI Prophylaxis: n/a DVT Prophylaxis: Lovenox SQ IV fluids: None Lines/Tubes: Peripheral IV Code Status: Full code Subjective Date/time seen: 03/27/25 09:47 Interval history: Patient complains of chest pain radiating to back. Ordered troponin, EKG and chest x-ray. Chest CT performed on 03/25 shows no evidence of pulmonary embolism and no other significant finding other than mild pulmonary edema and small bilateral effusions. No evidence of aortic dissection. Discussed with Radiology about the chest CTA and patient agrees with the plan. Discussed risk versus benefit receiving contrast for the procedure. Review of Systems Review of Systems: All systems reviewed & are unremarkable except as noted in HPI and below Exam Narrative: mild tachy. Const: General: comfortable and no acute distress Other: , male, nontoxic appearance HENMT: Face/Nose/Sinus: Normal nares present Mouth: Yes moist mucous membranes Eyes: General: appearance normal, both eyes and all related structures Sclera: sclerae normal Pupils: Equal, round and reactive pupils present EOM: EOMs intact bilaterally Resp: Effort & Inspection: normal respiratory effort Auscultation: clear to auscultation bilaterally Cardio: Rate: tachycardic (Mild, 90-115) Rhythm: regular rhythm Other: S1-S2 present without murmur, rub, ectopy GI: Other: Abdomen soft, nondistended, nontender. Normoactive bowel sounds in all quadrants. Skin: General skin exam: normal color and no rashes or lesions noted Wounds: no wounds Neuro: Cranial nerves: Yes Equal, round and reactive pupils present Speech: normal speech Motor exam (neuro): 5/5 motor strength present throughout Sensory Exam: normal sensation Other: A&O x4 Extrem: General: normal to inspection Psych: Mental Status: mental status grossly normal Affect: normal affect Other: Good insight and judgment, pleasant Objective Data Vital Signs Vital Signs: Vital Signs - 24 hr 03/26/25 10:00 03/26/25 11:45 03/26/25 12:00 Temperature 98.3 F Pulse Rate 89 89 89 Respiratory Rate 20 Blood Pressure 162/102 H Pulse Oximetry 98 Oxygen Delivery 03/26/25 13:16 03/26/25 14:00 03/26/25 15:53 Temperature 98.2 F Pulse Rate 92 92 93 Respiratory Rate 20 Blood Pressure 155/113 H Pulse Oximetry 97 Oxygen Delivery 03/26/25 16:00 03/26/25 18:00 03/26/25 19:42 Temperature 98.0 F Pulse Rate 88 84 94 Respiratory Rate 16 Blood Pressure 155/114 H Pulse Oximetry 100 Oxygen Delivery 03/26/25 20:00 03/26/25 20:11 03/26/25 22:00 Temperature Pulse Rate 90 89 85 Respiratory Rate Blood Pressure Pulse Oximetry Oxygen Delivery 03/26/25 23:37 03/27/25 00:00 03/27/25 00:03 Temperature 98.0 F Pulse Rate 82 84 Respiratory Rate 169 H Blood Pressure 158/100 H Pulse Oximetry 99 99 Oxygen Delivery Room Air 03/27/25 02:00 03/27/25 03:49 03/27/25 04:00 Temperature 98.5 F Pulse Rate 79 77 74 Respiratory Rate 16 Blood Pressure 117/83 Pulse Oximetry 94 Oxygen Delivery 03/27/25 06:00 03/27/25 08:00 03/27/25 09:02 Temperature 98.0 F Pulse Rate 76 85 87 Respiratory Rate 18 Blood Pressure 164/109 H Pulse Oximetry 99 Oxygen Delivery Intake/Output Intake/Output: Intake & Output 03/24/25 03/25/25 03/26/25 03/27/25 23:59 23:59 23:59 23:59 Intake Total 240 720 480 Output Total 900 Balance -660 720 480 Meds/Results Medications: Active Medications Generic Name Dose Route Start Last Admin Trade Name Freq PRN Reason Stop Dose Admin Acetaminophen 650 mg 03/26/25 23:43 03/27/25 09:01 Acetaminophen 325 Mg Tablet PO 650 mg Q4H PRN Administration Headache Amlodipine Besylate 10 mg 03/26/25 09:00 03/27/25 09:02 Amlodipine Besylate 10 Mg Tablet PO 10 mg DAILY SHERRY Administration Atorvastatin Calcium 20 mg 03/27/25 09:00 03/27/25 09:03 Atorvastatin 20 Mg Tablet PO 20 mg DAILY SHERRY Administration Capsaicin 1 applic 03/25/25 21:23 03/26/25 20:12 Capsaicin 0.025% Cream 60 Gm Tube TOPICAL 1 applic Q6H PRN Administration Muscle/Joint Pain Carvedilol 6.25 mg 03/26/25 13:05 03/27/25 09:02 Carvedilol 6.25 Mg Tablet PO 6.25 mg Q12HR SHERRY Administration Dextrose 12.5 gm 03/25/25 17:34 Dextrose 50% 25 Gm/50 Ml Syringe IV PUSH PRN PRN Hypoglycemia Protocol Enoxaparin Sodium 40 mg 03/26/25 09:00 03/27/25 09:07 Enoxaparin 40 Mg/0.4 Ml Syringe SUB-Q 40 mg DAILY SHERRY Administration Furosemide 40 mg 03/26/25 09:00 03/27/25 09:05 Furosemide Inj 40 Mg/4 Ml Vial IV PUSH 40 mg DAILY SHERRY Administration Glucagon 1 mg 03/25/25 17:34 Glucagon For Inj 1 Mg Vial IM PRN PRN Hypoglycemia Protocol Glucose 15 gm 03/25/25 17:34 Glucose Oral Gel 15 Gm Of Glucse In 37.5 Gm Tube PO PRN PRN Hypoglycemia Protocol Dextrose 1,000 mls @ 100 mls/hr 03/25/25 17:34 Dextrose 5% 1,000 Ml IVPB PRN PRN Hypoglycemia Protocol Insulin Aspart 4 - 8 units 03/26/25 08:00 03/27/25 09:00 Insulin Aspart (*Bkc) 100 Units/Ml SUB-Q 2 units TIDWM SHERRY Administration Protocol Insulin Glargine 10 units 03/26/25 21:00 03/26/25 20:19 Insulin Glargine (*Bkc) 100 Units/Ml SUB-Q 10 units HS SHERRY Administration Losartan Potassium 25 mg 03/26/25 13:00 03/27/25 09:03 Losartan Potassium 25 Mg Tablet PO 25 mg DAILY SHERRY Administration Perflutren Lipid Microsphere 0 ml 03/25/25 17:24 Perflutren Lipid Microspheres 1.5 Ml Vial Diluted To 10 Ml Total Volume IV PUSH 03/28/25 17:24 ONCE PRN adequate visualization Protocol Radiology Results: ITS Impressions Chest X-Ray 03/25/25 10:53 IMPRESSION: 1.There is a 2.5 cm masslike density in the left suprahilar region. Differential includes overlapping vasculature, mass or focal consolidation. A chest CT with contrast is recommended. 2. Small opacities in the lower lungs. Differential includes atelectasis/scarring or infiltrates. Chest CTA 03/25/25 11:25 IMPRESSION: 1. No pulmonary embolism. 2. Mild pulmonary edema and small bilateral pleural effusions. Labs Labs: Laboratory Results - last 24 hr 03/26/25 03/26/25 03/26/25 11:22 16:12 20:18 WBC RBC Hgb Hct MCV MCH MCHC RDW Plt Count MPV Sodium Potassium Chloride Carbon Dioxide Anion Gap BUN Creatinine Estim Creat Clear Calc Estimated GFR Glucose POC Capillary Glucose 307 H 271 H 280 H Calcium Total Bilirubin AST ALT Alkaline Phosphatase NT-Pro-B Natriuret Pep Total Protein Albumin 03/27/25 03/27/25 03:47 07:18 WBC 7.3 RBC 4.54 L Hgb 13.4 L Hct 41.1 L MCV 90.5 MCH 29.5 MCHC 32.6 RDW 13.0 Plt Count 297 MPV 10.5 H Sodium 132 L Potassium 3.5 Chloride 102 Carbon Dioxide 25 Anion Gap 5 BUN 10 Creatinine 0.64 L Estim Creat Clear Calc 125 Estimated GFR > 60 Glucose 230 H POC Capillary Glucose 255 H Calcium 8.5 Total Bilirubin 0.7 AST 30 ALT 42 Alkaline Phosphatase 90 NT-Pro-B Natriuret Pep 704 H Total Protein 5.8 L Albumin 3.2 L Quality VTE Prophylaxis VTE prophylaxis: pharmacologic ordered Hospitalist [facility] Advance Care Plan I have confirmed that the patient's Advanced Care Plan is present, code status is documented, or surrogate decision maker is listed in patient medical record.: Yes Medication Reconciliation I have utilized all available resources to obtain, update and review the patients current medications (includes all prescriptions, OTC, herbals, cannabis, and nutritional supplements).: Yes
[2025-03-27 10:13] LABS: Troponin I 0.028 ng/mL (0.000-0.034)
--- NOTE | 2025-03-27 10:27 | P.PNCA_ITS ---
Progress Note: A&P Assessment and Plan (1) Cardiomyopathy: Code(s): I42.9 - Cardiomyopathy, unspecified Status: Acute Assessment and Plan: This is a new diagnosis. Etiology unknown at this point. * Stop amlodipine * Stop losartan * start Entresto 24-26mg b.i.d. * Add jardiance 10mg daily * Continue coreg 6.25mg b.i.d. * LifeVest * He will need an ischemic evaluation which can be done as an outpatient ([facility]) (2) Hypertensive urgency: Code(s): I16.0 - Hypertensive urgency Status: Acute Assessment and Plan: Improving. In light of his cardiomyopathy, making the following changes to his regimen today: * Stop amlodipine * Stop losartan * start Entresto 24-26mg b.i.d. * Add jardiance 10mg daily * Conitnue coreg 6.25mg b.i.d. (3) CHF (congestive heart failure): Qualifiers: Heart failure chronicity: acute Heart failure type: unspecified Qualified Code(s): I50.9 - Heart failure, unspecified Code(s): I50.9 - Heart failure, unspecified Status: Suspected Assessment and Plan: Appears to be euvolemic. * Discontinue IV furosemide * p.r.n. oral furosemide for swelling, rapid weight gain, shortness of breath as outpatient (4) Elevated troponin: Code(s): R79.89 - Other specified abnormal findings of blood chemistry Status: Acute Assessment and Plan: Not related to ACS. More likely secondary to marked hypertension plus/minus heart failure (5) Hypertension associated with diabetes: Code(s): E11.59 - Type 2 diabetes mellitus with other circulatory complications; I15.2 - Hypertension secondary to endocrine disorders Status: Acute Assessment and Plan: Uncontrolled (6) Hyperlipidemia associated with type 2 diabetes mellitus: Code(s): E11.69 - Type 2 diabetes mellitus with other specified complication; E78.5 - Hyperlipidemia, unspecified Status: Acute Assessment and Plan: Continue statin (7) Hypokalemia: Code(s): E87.6 - Hypokalemia Status: Acute Assessment and Plan: Potassium is already replaced Subjective Date/time seen: 03/27/25 10:27 Interval history: Cardiology follow up visit Date of service 03/27/2025: Feels okay today. Complaining of some back/left shoulder pain. Denies shortness of breath, orthopnea, swelling, chest pain. Review of Systems Review of Systems: All systems reviewed & are unremarkable except as noted in HPI and below Constitutional: Constitutional: Denies body ache(s) and Denies excessive sweating Eyes: Eyes: Denies blurry vision ENT: Reports Normal hearing present Cardiovascular: Cardiovascular: Denies chest pain and Reports dyspnea Respiratory: Respiratory: Reports cough and Reports dyspnea Gastrointestinal: Gastrointestinal: Denies abdominal pain Genitourinary: Genitourinary: Denies hematuria Musculoskeletal: Musculoskeletal: Reports back pain Integumentary/Breasts: Skin/Breast: Denies pruritus Neurologic: Reports Normal hearing present and Denies Abnormal speech present Psychiatric: Psychiatric: Denies anxiety Endocrine: Endocrine: Denies excessive sweating Hematologic/Lymphatic: Hematologic/Lymphatic: Denies easy bleeding Allergic/Immunologic: Allergic/Immunologic: Denies GI upset with certain foods Exam Narrative: Awake alert oriented. Appears to be in no acute distress. Appears stated age Const: General: comfortable and no acute distress HENMT: Ears: TM's normal bilaterally Face/Nose/Sinus: Normal nares present Mouth: Yes moist mucous membranes Eyes: General: appearance normal, both eyes and all related structures Sclera: sclerae normal Neck: Neck: supple and no JVD Chest: Other: No reproducible chest wall pain to palpation Resp: Effort & Inspection: normal respiratory effort Auscultation: clear to auscultation bilaterally Cardio: Rate: regular rate Rhythm: regular rhythm Heart sounds: no murmurs GI: Inspection: non-distended Skin: General skin exam: normal color and no rashes or lesions noted Neuro: Cranial nerves: Yes Normal hearing present Speech: normal speech and No Abnormal speech present Sensory Exam: normal sensation Extrem: General: normal to inspection Psych: Mental Status: mental status grossly normal Affect: normal affect Objective Data Vital Signs Vital Signs: Vital Signs - 24 hr 03/26/25 11:45 03/26/25 12:00 03/26/25 13:16 Temperature 36.8 C Pulse Rate 89 89 92 Respiratory Rate 20 Blood Pressure 162/102 H Pulse Oximetry 98 Oxygen Delivery 03/26/25 14:00 03/26/25 15:53 03/26/25 16:00 Temperature 36.8 C Pulse Rate 92 93 88 Respiratory Rate 20 Blood Pressure 155/113 H Pulse Oximetry 97 Oxygen Delivery 03/26/25 18:00 03/26/25 19:42 03/26/25 20:00 Temperature 36.7 C Pulse Rate 84 94 90 Respiratory Rate 16 Blood Pressure 155/114 H Pulse Oximetry 100 Oxygen Delivery 03/26/25 20:11 03/26/25 22:00 03/26/25 23:37 Temperature 36.7 C Pulse Rate 89 85 82 Respiratory Rate 169 H Blood Pressure 158/100 H Pulse Oximetry 99 Oxygen Delivery 03/27/25 00:00 03/27/25 00:03 03/27/25 02:00 Temperature Pulse Rate 84 79 Respiratory Rate Blood Pressure Pulse Oximetry 99 Oxygen Delivery Room Air 03/27/25 03:49 03/27/25 04:00 03/27/25 06:00 Temperature 36.9 C Pulse Rate 77 74 76 Respiratory Rate 16 Blood Pressure 117/83 Pulse Oximetry 94 Oxygen Delivery 03/27/25 08:00 03/27/25 08:00 03/27/25 09:02 Temperature 36.7 C Pulse Rate 85 98 87 Respiratory Rate 18 Blood Pressure 164/109 H Pulse Oximetry 99 Oxygen Delivery Intake/Output Intake/Output: Intake & Output 03/24/25 03/25/25 03/26/25 03/27/25 23:59 23:59 23:59 23:59 Intake Total 240 720 480 Output Total 900 Balance -660 720 480 Meds/Results Medications: Active Medications Generic Name Dose Route Start Last Admin Trade Name Freq PRN Reason Stop Dose Admin Acetaminophen 650 mg 03/26/25 23:43 03/27/25 09:01 Acetaminophen 325 Mg Tablet PO 650 mg Q4H PRN Administration Headache Amlodipine Besylate 10 mg 03/26/25 09:00 03/27/25 09:02 Amlodipine Besylate 10 Mg Tablet PO 10 mg DAILY SHERRY Administration Atorvastatin Calcium 20 mg 03/27/25 09:00 03/27/25 09:03 Atorvastatin 20 Mg Tablet PO 20 mg DAILY SHERRY Administration Capsaicin 1 applic 03/25/25 21:23 03/26/25 20:12 Capsaicin 0.025% Cream 60 Gm Tube TOPICAL 1 applic Q6H PRN Administration Muscle/Joint Pain Carvedilol 6.25 mg 03/26/25 13:05 03/27/25 09:02 Carvedilol 6.25 Mg Tablet PO 6.25 mg Q12HR SHERRY Administration Dextrose 12.5 gm 03/25/25 17:34 Dextrose 50% 25 Gm/50 Ml Syringe IV PUSH PRN PRN Hypoglycemia Protocol Enoxaparin Sodium 40 mg 03/26/25 09:00 03/27/25 09:07 Enoxaparin 40 Mg/0.4 Ml Syringe SUB-Q 40 mg DAILY SHERRY Administration Furosemide 40 mg 03/26/25 09:00 03/27/25 09:05 Furosemide Inj 40 Mg/4 Ml Vial IV PUSH 40 mg DAILY SHERRY Administration Glucagon 1 mg 03/25/25 17:34 Glucagon For Inj 1 Mg Vial IM PRN PRN Hypoglycemia Protocol Glucose 15 gm 03/25/25 17:34 Glucose Oral Gel 15 Gm Of Glucse In 37.5 Gm Tube PO PRN PRN Hypoglycemia Protocol Dextrose 1,000 mls @ 100 mls/hr 03/25/25 17:34 Dextrose 5% 1,000 Ml IVPB PRN PRN Hypoglycemia Protocol Insulin Aspart 4 - 8 units 03/26/25 08:00 03/27/25 09:00 Insulin Aspart (*Bkc) 100 Units/Ml SUB-Q 2 units TIDWM SHERRY Administration Protocol Insulin Glargine 10 units 03/26/25 21:00 03/26/25 20:19 Insulin Glargine (*Bkc) 100 Units/Ml SUB-Q 10 units HS SHERRY Administration Losartan Potassium 25 mg 03/26/25 13:00 03/27/25 09:03 Losartan Potassium 25 Mg Tablet PO 25 mg DAILY SHERRY Administration Perflutren Lipid Microsphere 0 ml 03/25/25 17:24 Perflutren Lipid Microspheres 1.5 Ml Vial Diluted To 10 Ml Total Volume IV PUSH 03/28/25 17:24 ONCE PRN adequate visualization Protocol Radiology Results: ITS Impressions Chest X-Ray 03/25/25 10:53 IMPRESSION: 1.There is a 2.5 cm masslike density in the left suprahilar region. Differential includes overlapping vasculature, mass or focal consolidation. A chest CT with contrast is recommended. 2. Small opacities in the lower lungs. Differential includes atelectasis/scarring or infiltrates. Chest CTA 03/25/25 11:25 IMPRESSION: 1. No pulmonary embolism. 2. Mild pulmonary edema and small bilateral pleural effusions. Labs Labs: Laboratory Results - last 24 hr 03/26/25 03/26/25 03/26/25 11:22 16:12 20:18 WBC RBC Hgb Hct MCV MCH MCHC RDW Plt Count MPV Sodium Potassium Chloride Carbon Dioxide Anion Gap BUN Creatinine Estim Creat Clear Calc Estimated GFR Glucose POC Capillary Glucose 307 H 271 H 280 H Calcium Total Bilirubin AST ALT Alkaline Phosphatase Troponin I NT-Pro-B Natriuret Pep Total Protein Albumin 03/27/25 03/27/25 03/27/25 03:47 07:18 09:41 WBC 7.3 RBC 4.54 L Hgb 13.4 L Hct 41.1 L MCV 90.5 MCH 29.5 MCHC 32.6 RDW 13.0 Plt Count 297 MPV 10.5 H Sodium 132 L Potassium 3.5 Chloride 102 Carbon Dioxide 25 Anion Gap 5 BUN 10 Creatinine 0.64 L Estim Creat Clear Calc 125 Estimated GFR > 60 Glucose 230 H POC Capillary Glucose 255 H Calcium 8.5 Total Bilirubin 0.7 AST 30 ALT 42 Alkaline Phosphatase 90 Troponin I 0.028 NT-Pro-B Natriuret Pep 704 H Total Protein 5.8 L Albumin 3.2 L
[2025-03-27] MEDS: INSULIN GLARGINE (*BKC) 100 UNITS/ML 10 UNITS SUB-Q (20:28)
[2025-03-27] MEDS: SACUBITRIL/VALSARTAN 24-26 MG TABLET 1 TAB PO (20:28)
[2025-03-28] VITALS (10 sets, daily range): BP systolic 128–135; BP diastolic 76–95; PULSE 72–90; RESP 18–20; TEMP 36.6–36.8; O2SAT 96–98
[2025-03-28] MEDS: ACETAMINOPHEN 325 MG TABLET 650 MG PO (05:13)
[2025-03-28 05:50] LABS: Hematocrit 42.1 % (42.0-52.0); Hemoglobin 14.0 g/dL (14.0-18.0); Mean Corpuscular HGB Conc 33.3 g/dl (32-36); Mean Corpuscular Hemoglobin 29.9 pg (26-34); Mean Corpuscular Volume 89.8 fl (80-100); Platelet Count Result 300 k/mm3 (150-375); Red Blood Count 4.69 M/mm3 (4.6-6.20); White Blood Count 7.1 K/mm3 (4.5-10.0)
[2025-03-28 06:00] LABS: Alanine Aminotransferase 36 U/L (6-50); Albumin Level 3.3 g/dL (3.5-5.1); Alkaline Phosphatase 95 U/L (38-126); Anion Gap 6 mmol/L (4-12); Aspartate Amino Transferase 30 U/L (17-59); Bilirubin,Total 0.4 mg/dL (0.2-1.3); Blood Urea Nitrogen 12 mg/dL (9-20); Calcium 8.5 mg/dL (8.4-10.2); Carbon Dioxide 25 mmol/L (22-30); Chloride 101 mmol/L (98-107); Estimated CRCL calculation 136 ml/min; Estimated Glomerular Filt Rate > 60; Glucose 241 mg/dL (65-110); Potassium 3.2 mmol/L (3.4-5.0); Sodium 132 mmol/L (137-145); Total Protein 5.9 g/dL (6.3-8.2)
--- NOTE | 2025-03-28 07:53 | P.PNIM_ITS ---
Progress Note: A&P Assessment and Plan (1) CHF (congestive heart failure): Qualifiers: Heart failure type: unspecified Heart failure chronicity: acute Qualified Code(s): I50.9 - Heart failure, unspecified Code(s): I50.9 - Heart failure, unspecified Status: Suspected Assessment and Plan: - BNP 1470 - . Left ventricular systolic function is severely reduced, estimated at 30-35 - started on Lasix 40 mg IV daily - monitor I&Os and daily weights - trend renal function -chest CTA shows no dissection -Stop amlodipine and Stop losartan -start Entresto 24-26mg b.i.d. -Add jardiance 10mg daily -Continue coreg 6.25mg b.i.d. -LifeVest -Ischemic evaluation which can be done as an outpatient ([facility]) (2) Hypertensive urgency: Code(s): I16.0 - Hypertensive urgency Status: Acute Assessment and Plan: - chronic and off blood pressure medications with last 6 months. -noncompliance (3) Elevated troponin: Code(s): R79.89 - Other specified abnormal findings of blood chemistry Status: Acute Assessment and Plan: - initial EKG showed sinus rhythm, left axis deviation, possible left atrial enlargement, left bundle branch block - troponin: 0.033 -> 0.035 x2 - patient did report left-sided chest pain that worsened with breathing consistent with pleuritic chest pain. Pain also worsens with palpation over pectoral muscle. Troponin mildly elevated but thus far flat, higher suspicion for bump in troponin secondary to hypertensive urgency and possible fluid overload secondary to CHF. Plan for diuresis and initiation of blood pressure medications. Monitor for recurrence of chest pain. Patient educated to alert staff if chest pain recurs. -. 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 States he will not go back on this as it caused such significant diarrhea that persisted for months despite cessation. Has also been on Jardiance which worsened his peripheral neuropathy. Patient was also previously on Humalog and Lantus. - correct regimen ordered - high dose TIDWM, based off BMI - A1C 13 point -costumed character Plan Diet: Diabetic GI Prophylaxis: n/a DVT Prophylaxis: Lovenox SQ IV fluids: None Lines/Tubes: Peripheral IV Code Status: Full code Subjective Date/time seen: 03/28/25 07:53 Review of Systems Review of Systems: All systems reviewed & are unremarkable except as noted in HPI and below Exam Narrative: mild tachy. Const: General: comfortable and no acute distress Other: , male, nontoxic appearance HENMT: Face/Nose/Sinus: Normal nares present Mouth: Yes moist mucous membranes Eyes: General: appearance normal, both eyes and all related structures Scl era: sclerae normal Pupils: Equal, round and reactive pupils present EOM: EOMs intact bilaterally Resp: Effort & Inspection: normal respiratory effort Auscultation: clear to auscultation bilaterally Cardio: Rate: tachycardic (Mild, 90-115) Rhythm: regular rhythm Other: S1-S2 present without murmur, rub, ectopy GI: Other: Abdomen soft, nondistended, nontender. Normoactive bowel sounds in all quadrants. Skin: General skin exam: normal color and no rashes or lesions noted Wounds: no wounds Neuro: Cranial nerves: Yes Equal, round and reactive pupils present Speech: normal speech Motor exam (neuro): 5/5 motor strength present throughout Sensory Exam: normal sensation Other: A&O x4 Extrem: General: normal to inspection Psych: Mental Status: mental status grossly normal Affect: normal affect Other: Good insight and judgment, pleasant Objective Data Vital Signs Vital Signs: Vital Signs - 24 hr 03/27/25 08:00 03/27/25 08:00 03/27/25 09:02 Temperature 98.0 F Pulse Rate 85 98 87 Respiratory Rate 18 Blood Pressure 164/109 H Pulse Oximetry 99 03/27/25 10:00 03/27/25 12:00 03/27/25 12:00 Temperature 97.8 F Pulse Rate 97 82 82 Respiratory Rate 20 Blood Pressure 125/82 Pulse Oximetry 97 03/27/25 14:00 03/27/25 15:54 03/27/25 16:00 Temperature 98.3 F Pulse Rate 78 89 88 Respiratory Rate 18 Blood Pressure 137/99 H Pulse Oximetry 99 03/27/25 18:00 03/27/25 20:15 03/27/25 20:27 Temperature 98 F Pulse Rate 85 82 91 Respiratory Rate 18 Blood Pressure 147/98 H Pulse Oximetry 98 03/27/25 22:00 03/28/25 00:30 03/28/25 02:00 Temperature 97.9 F Pulse Rate 86 78 72 Respiratory Rate 18 Blood Pressure 128/76 Pulse Oximetry 98 03/28/25 04:00 03/28/25 05:06 03/28/25 06:00 Temperature 97.8 F Pulse Rate 74 77 74 Respiratory Rate 18 Blood Pressure 129/82 Pulse Oximetry 96 Intake/Output Intake/Output: Intake & Output 03/25/25 03/26/25 03/27/25 03/28/25 23:59 23:59 23:59 23:59 Intake Total 240 720 960 550 Output Total 900 1100 400 Balance -660 720 -140 150 Meds/Results Medications: Active Medications Generic Name Dose Route Start Last Admin Trade Name Freq PRN Reason Stop Dose Admin Acetaminophen 650 mg 03/26/25 23:43 03/28/25 05:13 Acetaminophen 325 Mg Tablet PO 650 mg Q4H PRN Administration Headache Atorvastatin Calcium 20 mg 03/27/25 09:00 03/27/25 09:03 Atorvastatin 20 Mg Tablet PO 20 mg DAILY SHERRY Administration Capsaicin 1 applic 03/25/25 21:23 03/26/25 20:12 Capsaicin 0.025% Cream 60 Gm Tube TOPICAL 1 applic Q6H PRN Administration Muscle/Joint Pain Carvedilol 6.25 mg 03/26/25 13:05 03/27/25 20:27 Carvedilol 6.25 Mg Tablet PO 6.25 mg Q12HR SHERRY Administration Dextrose 12.5 gm 03/25/25 17:34 Dextrose 50% 25 Gm/50 Ml Syringe IV PUSH PRN PRN Hypoglycemia Protocol Empagliflozin 10 mg 03/28/25 09:00 Empagliflozin 10 Mg Tablet PO DAILY SHERRY Enoxaparin Sodium 40 mg 03/26/25 09:00 03/27/25 09:07 Enoxaparin 40 Mg/0.4 Ml Syringe SUB-Q 40 mg DAILY SHERRY Administration Glucagon 1 mg 03/25/25 17:34 Glucagon For Inj 1 Mg Vial IM PRN PRN Hypoglycemia Protocol Glucose 15 gm 03/25/25 17:34 Glucose Oral Gel 15 Gm Of Glucse In 37.5 Gm Tube PO PRN PRN Hypoglycemia Protocol Dextrose 1,000 mls @ 100 mls/hr 03/25/25 17:34 Dextrose 5% 1,000 Ml IVPB PRN PRN Hypoglycemia Protocol Insulin Aspart 4 - 8 units 03/26/25 08:00 03/27/25 17:00 Insulin Aspart (*Bkc) 100 Units/Ml SUB-Q 5 units TIDWM SHERRY Administration Protocol Insulin Glargine 10 units 03/26/25 21:00 03/27/25 20:28 Insulin Glargine (*Bkc) 100 Units/Ml SUB-Q 10 units HS SHERRY Administration Perflutren Lipid Microsphere 0 ml 03/25/25 17:24 Perflutren Lipid Microspheres 1.5 Ml Vial Diluted To 10 Ml Total Volume IV PUSH 03/28/25 17:24 ONCE PRN adequate visualization Protocol Sacubitril/Valsartan 1 tab 03/27/25 21:00 03/27/25 20:28 Sacubitril/Valsartan 24-26 Mg Tablet PO 1 tab Q12HR SHERRY Administration Spironolactone 25 mg 03/28/25 09:00 Spironolactone 25 Mg Tablet PO QAM [facility] Radiology Results: ITS Impressions Chest X-Ray 03/27/25 11:32 IMPRESSION: 1: NO ACUTE CARDIOPULMONARY DISEASE. Chest CTA 03/27/25 12:10 IMPRESSION: No pulmonary embolus. No thoracic aortic dissection. Interval resolution of the bilateral pleural effusions and trace anasarca seen on previous examination. Labs Labs: Laboratory Results - last 24 hr 03/27/25 03/27/25 03/27/25 07:18 09:41 11:26 WBC RBC Hgb Hct MCV MCH MCHC RDW Plt Count MPV Sodium Potassium Chloride Carbon Dioxide Anion Gap BUN Creatinine Estim Creat Clear Calc Estimated GFR Glucose POC Capillary Glucose 255 H 310 H Calcium Total Bilirubin AST ALT Alkaline Phosphatase Troponin I 0.028 Total Protein Albumin 03/27/25 03/27/25 03/28/25 16:20 20:04 05:00 WBC 7.1 RBC 4.69 Hgb 14.0 Hct 42.1 MCV 89.8 MCH 29.9 MCHC 33.3 RDW 12.9 Plt Count 300 MPV 10.8 H Sodium 132 L Potassium 3.2 L Chloride 101 Carbon Dioxide 25 Anion Gap 6 BUN 12 Creatinine 0.58 L Estim Creat Clear Calc 136 Estimated GFR > 60 Glucose 241 H POC Capillary Glucose 296 H 342 H Calcium 8.5 Total Bilirubin 0.4 AST 30 ALT 36 Alkaline Phosphatase 95 Troponin I Total Protein 5.9 L Albumin 3.3 L 03/28/25 07:20 WBC RBC Hgb Hct MCV MCH MCHC RDW Plt Count MPV Sodium Potassium Chloride Carbon Dioxide Anion Gap BUN Creatinine Estim Creat Clear Calc Estimated GFR Glucose POC Capillary Glucose 246 H Calcium Total Bilirubin AST ALT Alkaline Phosphatase Troponin I Total Protein Albumin Hospitalist MIPS Advance Care Plan I have confirmed that the patient's Advanced Care Plan is present, code status is documented, or surrogate decision maker is listed in patient medical record.: Yes Medication Reconciliation I have utilized all available resources to obtain, update and review the patients current medications (includes all prescriptions, OTC, herbals, cannabis, and nutritional supplements).: Yes
[2025-03-28] MEDS: ENOXAPARIN 40 MG/0.4 ML SYRINGE SUB-Q (09:24)
[2025-03-28] MEDS: SPIRONOLACTONE 25 MG TABLET PO (09:24)
[2025-03-28] MEDS: EMPAGLIFLOZIN 10 MG TABLET PO (09:24)
[2025-03-28] MEDS: ATORVASTATIN 20 MG TABLET PO (09:24)
[2025-03-28] MEDS: SACUBITRIL/VALSARTAN 24-26 MG TABLET 1 TAB PO (09:24)
[2025-03-28] MEDS: INSULIN ASPART (*BKC) 100 UNITS/ML SUB-Q ×2 (09:25→12:19)
--- NOTE | 2025-03-28 09:53 | P.PNCA_ITS ---
Progress Note: A&P Assessment and Plan (1) Cardiomyopathy: Code(s): I42.9 - Cardiomyopathy, unspecified Status: Acute Assessment and Plan: This is a new diagnosis. Etiology unknown at this point. * Continue Entresto 24-26mg b.i.d. * Continue jardiance 10mg daily * Continue coreg 6.25mg b.i.d. * LifeVest delivered * He will need an ischemic evaluation which can be done as an outpatient ([facility]) * Ok for discharge today from a cardiac perspective * Will arrange for close outpatient follow up in our office (2) Hypertensive urgency: Code(s): I16.0 - Hypertensive urgency Status: Acute Assessment and Plan: Improving. In light of his cardiomyopathy, making the following changes to his regimen today: * Stop amlodipine * Stop losartan * start Entresto 24-26mg b.i.d. * Add jardiance 10mg daily * Conitnue coreg 6.25mg b.i.d. (3) CHF (congestive heart failure): Qualifiers: Heart failure chronicity: acute Heart failure type: unspecified Qualified Code(s): I50.9 - Heart failure, unspecified Code(s): I50.9 - Heart failure, unspecified Status: Suspected Assessment and Plan: Appears to be euvolemic. * Discontinue IV furosemide * p.r.n. oral furosemide for swelling, rapid weight gain, shortness of breath as outpatient (4) Elevated troponin: Code(s): R79.89 - Other specified abnormal findings of blood chemistry Status: Acute Assessment and Plan: Not related to ACS. More likely secondary to marked hypertension plus/minus hea rt failure (5) Hypertension associated with diabetes: Code(s): E11.59 - Type 2 diabetes mellitus with other circulatory complications; I15.2 - Hypertension secondary to endocrine disorders Status: Acute Assessment and Plan: Uncontrolled (6) Hyperlipidemia associated with type 2 diabetes mellitus: Code(s): E11.69 - Type 2 diabetes mellitus with other specified complication; E78.5 - Hyperlipidemia, unspecified Status: Acute Assessment and Plan: Continue statin (7) Hypokalemia: Code(s): E87.6 - Hypokalemia Status: Acute Assessment and Plan: Potassium is already replaced Subjective Date/time seen: 03/28/25 09:53 Interval history: Cardiology follow up visit Date of service 03/27/2025: Feels okay today. Complaining of some back/left shoulder pain. Denies shortness of breath, orthopnea, swelling, chest pain. Date of service 03/28/2025: Feeling well today. Being fitted for LifeVest at the time of my visit. No chest pain, shortness of breath, swelling, orthopnea. Review of Systems Review of Systems: All systems reviewed & are unremarkable except as noted in HPI and below Constitutional: Constitutional: Denies body ache(s) and Denies excessive sweating Eyes: Eyes: Denies blurry vision ENT: Reports Normal hearing present Cardiovascular: Cardiovascular: Denies chest pain and Reports dyspnea Respiratory: Respiratory: Reports cough and Reports dyspnea Gastrointestinal: Gastrointestinal: Denies abdominal pain Genitourinary: Genitourinary: Denies hematuria Musculoskeletal: Musculoskeletal: Reports back pain Integumentary/Breasts: Skin/Breast: Denies pruritus Neurologic: Reports Normal hearing present and Denies Abnormal speech present Psychiatric: Psychiatric: Denies anxiety Endocrine: Endocrine: Denies excessive sweating Hematologic/Lymphatic: Hematologic/Lymphatic: Denies easy bleeding Allergic/Immunologic: Allergic/Immunologic: Denies GI upset with certain foods Exam Narrative: Awake alert oriented. Appears to be in no acute distress. Appears stated age Const: General: comfortable and no acute distress HENMT: Ears: TM's normal bilaterally Face/Nose/Sinus: Normal nares present Mouth: Yes moist mucous membranes Eyes: General: appearance normal, both eyes and all related structures Sclera: sclerae normal Neck: Neck: supple and no JVD Chest: Other: No reproducible chest wall pain to palpation Resp: Effort & Inspection: normal respiratory effort Auscultation: clear to auscultation bilaterally Cardio: Rate: regular rate Rhythm: regular rhythm Heart sounds: no murmurs GI: Inspection: non-distended Skin: General skin exam: normal color and no rashes or lesions noted Neuro: Cranial nerves: Yes Normal hearing present Speech: normal speech and No Abnormal speech present Sensory Exam: normal sensation Extrem: General: normal to inspection Psych: Mental Status: mental status grossly normal Affect: normal affect Objective Data Vital Signs Vital Signs: Vital Signs - 24 hr 03/27/25 10:00 03/27/25 12:00 03/27/25 12:00 Temperature 36.6 C Pulse Rate 97 82 82 Respiratory Rate 20 Blood Pressure 125/82 Pulse Oximetry 97 03/27/25 14:00 03/27/25 15:54 03/27/25 16:00 Temperature 36.8 C Pulse Rate 78 89 88 Respiratory Rate 18 Blood Pressure 137/99 H Pulse Oximetry 99 03/27/25 18:00 03/27/25 20:15 03/27/25 20:27 Temperature 36.6 C Pulse Rate 85 82 91 Respiratory Rate 18 Blood Pressure 147/98 H Pulse Oximetry 98 03/27/25 22:00 03/28/25 00:30 03/28/25 02:00 Temperature 36.6 C Pulse Rate 86 78 72 Respiratory Rate 18 Blood Pressure 128/76 Pulse Oximetry 98 03/28/25 04:00 03/28/25 05:06 03/28/25 06:00 Temperature 36.6 C Pulse Rate 74 77 74 Respiratory Rate 18 Blood Pressure 129/82 Pulse Oximetry 96 03/28/25 08:00 03/28/25 09:24 Temperature 36.7 C Pulse Rate 79 87 Respiratory Rate 18 Blood Pressure 135/95 H Pulse Oximetry 98 Intake/Output Intake/Output: Intake & Output 03/25/25 03/26/25 03/27/25 03/28/25 23:59 23:59 23:59 23:59 Intake Total 240 720 960 790 Output Total 900 1100 1100 Balance -660 720 -140 -646 Meds/Results Medications: Active Medications Generic Name Dose Route Start Last Admin Trade Name Freq PRN Reason Stop Dose Admin Acetaminophen 650 mg 03/26/25 23:43 03/28/25 05:13 Acetaminophen 325 Mg Tablet PO 650 mg Q4H PRN Administration Headache Atorvastatin Calcium 20 mg 03/27/25 09:00 03/28/25 09:24 Atorvastatin 20 Mg Tablet PO 20 mg DAILY SHERRY Administration Capsaicin 1 applic 03/25/25 21:23 03/26/25 20:12 Capsaicin 0.025% Cream 60 Gm Tube TOPICAL 1 applic Q6H PRN Administration Muscle/Joint Pain Carvedilol 6.25 mg 03/26/25 13:05 03/28/25 09:24 Carvedilol 6.25 Mg Tablet PO 6.25 mg Q12HR SHERRY Administration Dextrose 12.5 gm 03/25/25 17:34 Dextrose 50% 25 Gm/50 Ml Syringe IV PUSH PRN PRN Hypoglycemia Protocol Empagliflozin 10 mg 03/28/25 09:00 03/28/25 09:24 Empagliflozin 10 Mg Tablet PO 10 mg DAILY SHERRY Administration Enoxaparin Sodium 40 mg 03/26/25 09:00 03/28/25 09:24 Enoxaparin 40 Mg/0.4 Ml Syringe SUB-Q 40 mg DAILY SHERRY Administration Glucagon 1 mg 03/25/25 17:34 Glucagon For Inj 1 Mg Vial IM PRN PRN Hypoglycemia Protocol Glucose 15 gm 03/25/25 17:34 Glucose Oral Gel 15 Gm Of Glucse In 37.5 Gm Tube PO PRN PRN Hypoglycemia Protocol Dextrose 1,000 mls @ 100 mls/hr 03/25/25 17:34 Dextrose 5% 1,000 Ml IVPB PRN PRN Hypoglycemia Protocol Insulin Aspart 4 - 8 units 03/26/25 08:00 03/28/25 09:25 Insulin Aspart (*Bkc) 100 Units/Ml SUB-Q 4 units TIDWM SHERRY Administration Protocol Insulin Glargine 10 units 03/26/25 21:00 03/27/25 20:28 Insulin Glargine (*Bkc) 100 Units/Ml SUB-Q 10 units HS SHERRY Administration Perflutren Lipid Microsphere 0 ml 03/25/25 17:24 Perflutren Lipid Microspheres 1.5 Ml Vial Diluted To 10 Ml Total Volume IV PUSH 03/28/25 17:24 ONCE PRN adequate visualization Protocol Sacubitril/Valsartan 1 tab 03/27/25 21:00 03/28/25 09:24 Sacubitril/Valsartan 24-26 Mg Tablet PO 1 tab Q12HR SHERRY Administration Spironolactone 25 mg 03/28/25 09:00 03/28/25 09:24 Spironolactone 25 Mg Tablet PO 25 mg QAM SHERRY Administration Radiology Results: ITS Impressions Chest X-Ray 03/27/25 11:32 IMPRESSION: 1: NO ACUTE CARDIOPULMONARY DISEASE. Chest CTA 03/27/25 12:10 IMPRESSION: No pulmonary embolus. No thoracic aortic dissection. Interval resolution of the bilateral pleural effusions and trace anasarca seen on previous examination. Labs Labs: Laboratory Results - last 24 hr 03/27/25 03/27/25 03/27/25 09:41 11:26 16:20 WBC RBC Hgb Hct MCV MCH MCHC RDW Plt Count MPV Sodium Potassium Chloride Carbon Dioxide Anion Gap BUN Creatinine Estim Creat Clear Calc Estimated GFR Glucose POC Capillary Glucose 310 H 296 H Calcium Total Bilirubin AST ALT Alkaline Phosphatase Troponin I 0.028 Total Protein Albumin 03/27/25 03/28/25 03/28/25 20:04 05:00 07:20 WBC 7.1 RBC 4.69 Hgb 14.0 Hct 42.1 MCV 89.8 MCH 29.9 MCHC 33.3 RDW 12.9 Plt Count 300 MPV 10.8 H Sodium 132 L Potassium 3.2 L Chloride 101 Carbon Dioxide 25 Anion Gap 6 BUN 12 Creatinine 0.58 L Estim Creat Clear Calc 136 Estimated GFR > 60 Glucose 241 H POC Capillary Glucose 342 H 246 H Calcium 8.5 Total Bilirubin 0.4 AST 30 ALT 36 Alkaline Phosphatase 95 Troponin I Total Protein 5.9 L Albumin 3.3 L
--- NOTE | 2025-03-28 12:44 | P.DS_ITS ---
DS: Admitting Diagnosis Discharge Date 03/28/2025 Admitting Diagnosis Chest pain DS: Discharge Diagnosis Discharge Diagnosis (1) CHF (congestive heart failure): Qualifiers: Heart failure chronicity: acute Heart failure type: unspecified Qualified Code(s): I50.9 - Heart failure, unspecified Code(s): I50.9 - Heart failure, unspecified Status: Suspected Assessment and Plan: - BNP 1470 - . Left ventricular systolic function is severely reduced, estimated at 30-35 - started on Lasix 40 mg IV daily - monitor I&Os and daily weights - trend renal function -chest CTA shows no dissection -Stop amlodipine and Stop losartan -start Entresto 24-26mg b.i.d. -Add jardiance 10mg daily -Continue coreg 6.25mg b.i.d. -LifeVest -Ischemic evaluation which can be done as an outpatient ([facility]) (2) Hypertensive urgency: Code(s): I16.0 - Hypertensive urgency Status: Acute Assessment and Plan: - chronic and off blood pressure medications with last 6 months. -noncompliance (3) Elevated troponin: Code(s): R79.89 - Other specified abnormal findings of blood chemistry Status: Acute Assessment and Plan: - initial EKG showed sinus rhythm, left axis deviation, possible left atrial enlargement, left bundle branch block - troponin: 0.033 -> 0.035 x2 - patient did report left-sided chest pain that worsened with breathing consistent with pleuritic chest pain. Pain also worsens with palpation over pectoral muscle. Troponin mildly elevated but thus far flat, higher suspicion for bump in troponin secondary to hypertensive urgency and possible fluid overload secondary to CHF. Plan for diuresis and initiation of blood pressure medications. Monitor for recurrence of chest pain. Patient educated to alert staff if chest pain recurs. -. Left ventricular systolic function is severely reduced, estimated at 30-35 (4) Diabetes mellitus: Qualifiers: Diabetes mellitus complication status: with hyperglycemia Diabetes mellitus long wall mining machine helper insulin use: without long-term use Diabetes mellitus type: type 2 Qualified Code(s): E11.65 - Type 2 diabetes mellitus with hyperglycemia Code(s): E11.9 - Type 2 diabetes mellitus without complications Status: Chronic Assessment and Plan: - hypoglycemia protocol - POC blood glucose ACHS - previously on metformin, not currently taking. States he will not go back on this as it caused such significant diarrhea that persisted for months despite cessation. Has also been on Jardiance which worsened his peripheral neuropathy. Patient was also previously on Humalog and Lantus. 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 The patient presents here from home for further evaluation of a cough and shortness of breath. He reports onset approximately 2 days ago. Cough has been dry and nonproductive. Shortness of breath worsens with laying flat. The symptoms are accompanied by left-sided chest pain that worsens with breathing. He describes it as discomfort, nonradiating, and intermittent. Believes he may have pulled something last night as it is tender to palpation near his lateral pec. Of note, the patient reports he has been off his blood pressure medications for the past 6 months due to insurance reasons, renewed and then medications could not be filled. Arrived with a BP of 180/125. He denies associated dizziness, vision changes, headache, midsternal chest pain. Does report some intermittent LE edema that occurs when he stands for an extended period, no weight gain. Initial VS at presentation: 98.1? F, HR 97, R 18, 180/125, and 97% on RA. ED workup showed: No leukocytosis, no anemia, coags within normal limits, elevated D-dimer with a negative chest CTA, sodium 132, creatinine 0.57 and GFR >60, glucose 274, initial troponin 0.033 (repeat 0.035), BNP 1470, and viral PCR negative. CXR showed 82.5 cm masslike density in the left suprahilar region, small opacities in the lower lungs. Chest CTA showed no PE and mild pulmonary edema and small bilateral pleural effusions. EKG showed sinus rhythm, left axis deviation, possible left atrial enlargement, left bundle branch block. During the hospitalization patient was examined by Cardiology. Patient ejection fraction 30-35%. Patient will be discharged with LifeVest. Patient advised on medication compliance and alcohol and smoking cessation. Agrees with the plan. Patient will be started on Entresto, Jardiance and will continue Coreg 6.25 mg as per Cardiology. During the hospitalization patient underwent CTA chest to r ule out aortic dissection and pulmonary embolism which was negative. Patient is to closely follow up with Cardiology for further ischemic workup. On the day of discharge, the patient was seen and examined. Vital signs were stable. Physical exam were stable and labs were reviewed at length. Discharge instructions, medications, and follow-up appointments were discussed with the patient at length and all day questions were answered. ER warnings were given. Status at Discharge Cognitive/behavioral status at discharge: Stable Time Spent with Patient Time attestation: Total time spent providing and/or coordinating discharge services: 45 minutes Exam Narrative: mild tachy. Const: Other: , male, nontoxic appearance Cardio: Other: S1-S2 present without murmur, rub, ectopy GI: Other: Abdomen soft, nondistended, nontender. Normoactive bowel sounds in all quadrants. Neuro: Other: A&O x4 Psych: Other: Good insight and judgment, pleasant DS: Data Data Completed and Pending Labs on day of discharge: Labs from last 24 hours 03/28/25 03/28/25 03/28/25 11:26 07:20 05:00 WBC 7.1 RBC 4.69 Hgb 14.0 Hct 42.1 MCV 89.8 MCH 29.9 MCHC 33.3 RDW 12.9 Plt Count 300 MPV 10.8 H Sodium 132 L Potassium 3.2 L Chloride 101 Carbon Dioxide 25 Anion Gap 6 BUN 12 Creatinine 0.58 L Estim Creat Clear Calc 136 Estimated GFR > 60 Glucose 241 H POC Capillary Glucose 254 H 246 H Calcium 8.5 Total Bilirubin 0.4 AST 30 ALT 36 Alkaline Phosphatase 95 Total Protein 5.9 L Albumin 3.3 L 03/27/25 03/27/25 20:04 16:20 WBC RBC Hgb Hct MCV MCH MCHC RDW Plt Count MPV Sodium Potassium Chloride Carbon Dioxide Anion Gap BUN Creatinine Estim Creat Clear Calc Estimated GFR Glucose POC Capillary Glucose 342 H 296 H Calcium Total Bilirubin AST ALT Alkaline Phosphatase Total Protein Albumin Imaging Radiologist's impression: ITS Impressions Chest X-Ray 03/25/25 10:53 IMPRESSION: 1.There is a 2.5 cm masslike density in the left suprahilar region. Differential includes overlapping vasculature, mass or focal consolidation. A chest CT with contrast is recommended. 2. Small opacities in the lower lungs. Differential includes atelectasis/scarring or infiltrates. Chest CTA 03/25/25 11:25 IMPRESSION: 1. No pulmonary embolism. 2. Mild pulmonary edema and small bilateral pleural effusions. Chest X-Ray 03/27/25 11:32 IMPRESSION: 1: NO ACUTE CARDIOPULMONARY DISEASE. Chest CTA 03/27/25 12:10 IMPRESSION: No pulmonary embolus. No thoracic aortic dissection. Interval resolution of the bilateral pleural effusions and trace anasarca seen on previous examination. Discharge Plan Discharge Attending physician on discharge: Ian Lopez Consulting providers: Neftali Hairston Discharging Clinician: Ian Lopez Anticipated Discharge Date/Time: 03/28/25 13:07 Patient Disposition: Home Activity: as tolerated Diet: heart healthy and diabetic Discharge Instructions: Patient will be discharged with LifeVest Patient needs to take medications regularly Check blood pressure 1 to 2 times a day. Record and bring into your doctor for review. Call your doctor if your blood pressure is greater than 180/110 or less than 90/45. Walk with cane or other assist device. Take precautions to avoid falls. Rise slowly from a lying or sitting position. Pause before standing or walking. Contact your doctor or call 911 and come to the Emergency Room if you have any type of trauma, lightheadedness with standing or other worrisome symptoms. Avoid NSAIDs (ibuprofen, naproxen, Aleve). Tylenol is safe to take. Follow-up with your primary care provider in 1-2 weeks. Please call for appointment. Follow-up with Cardiology in 2-4 weeks. Please call for an appointment. Thank you for using [facility] for your health care needs. Patient Instructions: Antibiotic Form Patient Language: Welsh Stand Alone Forms: General Discharge Information, Work/School Release IP Follow-up/Referrals: Melissa Rodriguez AEROSPACE PHYSIOLOGICAL TECHNICIAN-C [Advanced Practice Nurse] - 2 Weeks Discharge Medications: New carvedilol [Coreg] 6.25 mg Tablet 6.25 mg PO Q12HR Qty: 30 0RF insulin glargine [Lantus U-100 Insulin] 100 unit/mL Solution 10 unit subcut HS Qty: 10 0RF Jardiance 10 mg Tablet 10 mg PO DAILY Qty: 30 0RF sacubitril-valsartan [Entresto] 24-26 mg Tablet 1 tablet PO Q12HR Qty: 60 0RF spironolactone 25 mg Tablet 25 mg PO QAM Qty: 30 0RF (DME) blood-glucose meter [OneTouch Verio Flex meter] [facility] [place] Qty: 1 0RF Rx Instructions: May substitute to in-stock meter and/or covered by insurance. Use As Directed (DME) OneTouch Verio test strips Strip Qty: 1 0RF Rx Instructions: May substitute to in-stock and/or covered by insurance strips. Use As Directed (DME) pen needle, diabetic 32 gauge x 5/32 Needle Qty: 1 0RF Rx Instructions: As Directed (DME) lancets [OneTouch Delica Plus Lancet] 30 gauge [facility] [place] Qty: 1 0RF Rx Instructions: May substitute to in-stock and/or covered by insurance lancets. Use As Directed (DME) insulin syringe,safety needle 0.5 mL 31 gauge x 5/16 Syringe Qty: 1 0RF Rx Instructions: As Directed Continued levothyroxine 50 mcg Capsule 50 mcg PO DAILY atorvastatin 20 mg Tablet 20 mg PO DAILY Qty: 30 0RF tramadol 50 mg tablet 50 mg PO Q6H PRN (Reason: pain) Qty: 10 0RF Changed metformin 500 mg Tablet 1,000 mg PO BID Qty: 60 0RF Discontinued metoprolol tartrate 100 mg Tablet 100 mg PO BID Qty: 30 0RF amlodipine 10 mg Tablet 10 mg PO DAILY Qty: 30 0RF hydrochlorothiazide 25 mg Tablet 25 mg PO DAILY Qty: 30 0RF Date of admission: 03/25/25 13:02 Primary Care Provider: PHYSICIAN NOT ON STAFF,NONSTAFF Admitting Provider: Ian Lopez Attending physician on admission: Ian Lopez Condition: Stable
[2025-03-28] MEDS: POTASSIUM CHLORIDE 20 MEQ ER TABLET 40 MEQ PO (13:17)
--- NOTE | 2025-04-16 15:47 | PCCDE ---
Pt was re-admitted and DC 04/09. 04/16/25: DM educator courtesy call attempted - Msg left including multiple call back numbers.
== END 2025-03-28 14:12 | disposition home or self-care (01) ==
LOC: ANHED 10:21 → ANH3MEDSUR 13:40 → ANHIMU 15:09
PROVIDERS: Emergency Medicine; Student in an Organized Health Care Education/Training Program; Admitting Provider General Practice; Emergency Provider Physician Assistant; Visit Provider General Practice
DX: I42.9 Cardiomyopathy, unspecified (principal); I16.0 Hypertensive urgency; E87.70 Fluid overload, unspecified; R06.02 Shortness of breath; E87.6 Hypokalemia; I11.0 Hypertensive heart disease with heart failure; I50.9 Heart failure, unspecified; R79.89 Other specified abnormal findings of blood chemistry; E11.42 Type 2 diabetes mellitus with diabetic polyneuropathy; E11.59 Type 2 diabetes mellitus with other circulatory complications; E11.69 Type 2 diabetes mellitus with other specified complication; I44.7 Left bundle-branch block, unspecified; E78.5 Hyperlipidemia, unspecified; F41.9 Anxiety disorder, unspecified; F32.A Depression, unspecified; Z87.891 Personal history of nicotine dependence; F12.90 Cannabis use, unspecified, uncomplicated; Z79.84 Long term (current) use of oral hypoglycemic drugs; Z79.899 Other long term (current) drug therapy; Z20.822 Contact with and (suspected) exposure to COVID-19
CPT/HCPCS: 36415; 71045; 71046; 71275; 80053; 82948; 83036; 83690; 83880; 84443; 84484; 85025; 85027; 85380; 85610; 85730; 87637; 93005; 93306; 96372; 96374; 96375; 99285; A9270; G0378; G0379; J1650; J1815; J1938; Q9967

== ENCOUNTER 2025-04-08 06:21 | Observation (INO) | payer OTHER, SELFPAY ==
[2025-04-08] VITALS (32 sets, daily range): BP systolic 96–137; BP diastolic 58–99; PULSE 85–142; RESP 16–37; TEMP 36.4–37.3; O2SAT 94–100; BMI 29.7
--- NOTE | ~2025-04-08 | XR_ITS ---
EXAMINATION: XR chest 1V portable 04/08/2025 06:53 INDICATION: Infection PROCEDURE: AP portable chest COMPARISON: 03/27/2025 FINDINGS: The lungs are clear. The cardiomediastinal silhouette is within normal limits. There are no pleural effusions. There is no pneumothorax suspected. IMPRESSION: 1: NO ACUTE CARDIOPULMONARY DISEASE. Reviewed, dictated and finalized at location O.
--- NOTE | 2025-04-08 06:29 | ECG_ITS ---
Test Date: 2025-04-08 06:31:47 Measurements Intervals [place] Rate: 142 P: -8 [place]: 169 QRS: -36 QRSD: 158 T: 135 QT: 338 QTc: 520 Interpretive Statements ATRIAL FLUTTER/TACHYCARDIA WITH RAPID VENTRICULAR RESPONSE LEFT AXIS DEVIATION LEFT BUNDLE BRANCH BLOCK BASELINE ARTIFACT- I, II, AVR ABNORMAL ECG Compared to ECG 03/27/2025 09:53:11 Sinus rhythm no longer present Electronically Signed On 04-08-2025 06:51:51 CDT by Lenny Griffin D.O.
[2025-04-08 06:54] LABS: Hematocrit 44.3 % (42.0-52.0); Hemoglobin 14.7 g/dL (14.0-18.0); Immature Granulocyte Percent A 0.4 % (0-0.5); Lymphocytes Absolute Auto 2.21 K/mm3 (0.9-3.2); Mean Corpuscular HGB Conc 33.2 g/dl (32-36); Mean Corpuscular Hemoglobin 29.7 pg (26-34); Mean Corpuscular Volume 89.5 fl (80-100); Nucleated Red Blood Cells Absolute Auto 0.000 K/mm3 (0.0-0.012); Nucleated Red Blood Cells Perc 0.0 % (0.0-0.2); Platelet Count Result 363 k/mm3 (150-375); Red Blood Count 4.95 M/mm3 (4.6-6.20); White Blood Count 10.8 K/mm3 (4.5-10.0)
[2025-04-08 07:16] LABS: Alanine Aminotransferase 57 U/L (6-50); Albumin Level 3.3 g/dL (3.5-5.1); Alkaline Phosphatase 122 U/L (38-126); Anion Gap 9 mmol/L (4-12); Aspartate Amino Transferase 85 U/L (17-59); Bilirubin,Total 0.3 mg/dL (0.2-1.3); Blood Urea Nitrogen 20 mg/dL (9-20); Calcium 8.7 mg/dL (8.4-10.2); Carbon Dioxide 17 mmol/L (22-30); Chloride 105 mmol/L (98-107); Estimated CRCL calculation 118 ml/min; Estimated Glomerular Filt Rate > 60; Glucose 349 mg/dL (65-110); Lipase 105 U/L (23-300); Magnesium 1.7 mg/dL (1.6-2.3); Potassium 4.0 mmol/L (3.4-5.0); Sodium 131 mmol/L (137-145); Total Protein 6.1 g/dL (6.3-8.2)
--- OUTSIDE RECORDS SUMMARY | 2025-04-08 07:19 | XMS_ITS | Clinical Summary ---
Author Organization [facility] Physician Office Building [address] [place] [phone] Care Team Providers Care Boat Laborer Name Role Phone Carlos Shields Primary Care Provider + Allergies No known active allergies Medications amLODIPine (NORVASC) 10 mg tablet 04/11/20 24 Active insulin glargine (LANTUS) 100 unit/mL (3 mL) pen for injectionIndi cations:Type 2 diabetes mellitus with hyperglycemia , without long-term current use of insulin (HCC) Inject 16-20 Units under the skin daily 6 mL 5 05/20/20 24 Active Additional Information Patient taking differently: 10 UnitssubcutaneousNightly, Reported on 04/07/2025 empagliflozin (JARDIANCE) 25 mg tabletIndicat ions:Type 2 diabetes mellitus with hyperglycemia , without long-term current use of insulin (HCC) Take 1 tablet (25 mg total) by mouth daily 30 tablet 5 05/20/20 24 Active pen needle, diabetic (BD Ultra-Fine Bindu Pen Needle) 32 gauge x 5/32 needleIndicat ions:Type 2 diabetes mellitus with hyperglycemia , without long-term current use of insulin (HCC) One each daily 30 each 11 05/20/20 24 Active carvediloL (COREG) 6.25 mg tablet Take 1 tablet (6.25 mg total) by mouth every 12 (twelve) hours 03/28/20 25 Active OneTouch Delica Plus Lancet 30 gauge misc as directed 03/28/20 25 Active levothyroxine sodium (TIROSINT) 50 mcg capsule Take 1 capsule (50 mcg total) by mouth 09/01/19 22 Active metFORMIN (GLUCOPHAGE) 500 mg tablet Take 2 tablets (1,000 mg total) by mouth 2 (two) times a day 03/28/20 25 Active Entresto 24-26 mg tablet Take 1 tablet by mouth every 12 (twelve) hours 03/28/20 25 Active spironolacton e (ALDACTONE) 25 mg tablet Take 1 tablet (25 mg total) by mouth every morning 03/28/20 25 Active Januvia 100 mg tabletIndicat ions:Type 2 diabetes mellitus with hyperglycemia , without long-term current use of insulin (HCC) Take 1 tablet (100 mg total) by mouth daily 90 tablet 3 04/03/20 25 026 Active atorvastatin (LIPITOR) 20 mg tabletIndicat ions:Hyperlip idemia associated with type 2 diabetes mellitus (HCC) Take 1 tablet (20 mg total) by mouth nightly 90 tablet 04/03/20 25 026 Active empagliflozin (JARDIANCE) 10 mg tablet 1 tablet (10 mg total) daily Active traMADoL (ULTRAM) 50 mg tablet Take 1 tablet (50 mg total) by mouth every 6 (six) hours Active metoprolol XL (TOPROL-XL) 100 mg 24 hr tablet 04/11/20 24 025 Discontinued(Al ternate therapy) Januvia 100 mg tablet 04/19/20 24 025 Discontinued(Re order) losartan (COZAAR) 100 mg tablet 04/11/20 24 025 Discontinued(Al ternate therapy) hydroCHLOROth iazide (HYDRODIURIL) 25 mg tablet 04/11/20 24 025 Discontinued(Jonathan canela Reported) gabapentin (NEURONTIN) 300 mg capsuleIndica tions:Diabeti c Peripheral Neuropathy Take 1 capsule (300 mg total) by mouth 3 (three) times a day 90 capsule 2 05/20/20 24 025 Discontinued(Jonathan canela Reported) Dexcom G7 Process Design Engineer miscIndicatio ns:Type 2 diabetes mellitus with hyperglycemia , without long-term current use of insulin (HCC) Use as directed. 1 each 05/20/20 24 025 Discontinued Dexcom G7 Sensor deviceIndicat ions:Type 2 diabetes mellitus with hyperglycemia , without long-term current use of insulin (HCC) Use as directed. Change sensor every 10 days. 3 each 05/20/20 24 025 Discontinued atorvastatin (LIPITOR) 20 mg tabletIndicat ions:Hyperlip idemia associated with type 2 diabetes mellitus (HCC) Take 1 tablet (20 mg total) by mouth nightly 90 tablet 3 05/20/20 24 025 Discontinued(Re order) Active Problems Problem Noted Date Diagnosed Date Type 2 diabetes mellitus wit h hyperglycemia, without long-term current use of insulin 05/20/2024 Assessment & Plan (04/03/2025 2:10 PM CDT): Chronic problem; uncontrolled. A1c greatly uncontrolled and worsened from 11.0% 05/20/24 to now 12.7%. had been non-compliant until recent hospitalization; off meds 6-7 mos. Now has been taking meds & eating properly. -Increase Lantus by 2-4 units every 4-5 days until morning fasting blood sugar is 120-140. Max dose of insulin 40 units. -restart Januvia Current medications: Metformin 1000mg twice daily with meal Januvia 100mg daily Jardiance 25mg daily Lantus 10 units every morning DM eye exam: [facility] . Letter sent to get copy of report. Will update labs. Verified that he uses [facility]. Aware to check results/results letter in [facility]. Will contact by phone if needed. Discussed with Neftali Blanca: Strive for regular exercise (30min most days) and diet (get at least 4-5 servings of fruit and veggies daily, avoid processed foods, increase lean protein intake and decrease carb portions as well as fruit juices, regular soda & desserts). Watch carbs and simple sugars. Check the blood sugar: daily (not wearing CGM). Check the feet daily for skin breakdown and infection. Assessment & Plan (05/20/2024 1:03 PM CDT): [...] 2 diabetes mellitus 05/20/2024 Assessment & Plan (04/03/2025 2:09 PM CDT): Chronic problem. Currently taking no longer taking Gabapentin. Reports improvement in neuropathy. Reviewed foot care; needs to lotion daily. Aware to check feet nightly, not to go barefoot. Assessment & Plan (05/20/2024 1:01 PM CDT): Chronic, uncontrolled, worsening Recommend to work on better glycemic control Start gabapentin for symptomatic management Advised to start taking gabapentin 300 mg oral daily at bedtime and slowly increase up to 3 times daily Discussed about mechanism of action, side effects and benefits Hypertension associated with diabetes 05/20/2024 Assessment & Plan (04/03/2025 1:39 PM CDT): Chronic problem. Not at goal on current losartan 100mg daily, metoprolol XL 100mg daily, amlodipine 10mg daily, HCTZ 25mg daily Will update labs. Verified that he uses [facility]. Aware to check results/results letter in [facility]. Will contact by phone if needed. Assessment & Plan (05/20/2024 1:02 PM CDT): Chronic, fairly controlled Patient on Arb and CHARLIE inhibitors together Advised to stop enalapril Continue losartan, amlodipine, metoprolol and hydrochlorothiazide Hyperlipidemia associated with type 2 diabetes julia estrada 05/20/2024 Assessment & Plan (04/03/2025 1:39 PM CDT): Chronic problem; unknown status. No labs in chart. Currently taking atorvastatin 20mg daily. Will update labs. Verified that he uses [facility]. Aware to check results/results letter in [facility]. Will contact by phone if needed. Assessment & Plan (05/20/2024 1:02 PM CDT): We will start patient on statin therapy Class 1 obesity due to exces s calories with serious comorbidity and body mass index (BMI) of 31.0 to 31.9 in adult 05/20/2024 Assessment & Plan (05/20/2024 1:01 PM CDT): Counseled on diet and exercise Encounters Date Type Department Care Team Description 04/07/2025 Telephone [facility] Endocr[facility] [address] [place] [phone] Enid Tyler NP [facility] Inpatient records with labs 04/04/2025 Results Follow-Up [facility] [address] [place] [phone] Enid Tyler NP Thyroid Function [place], C-peptide, Lipid panel, Additional followed-up results: 3 04/03/2025 2:25 PM CDT Lab [address] [address] Type 2 diabetes mellitus with hyperglycemia, without long-term current use of insulin (HCC); Hyperlipidemia associated with type 2 diabetes mellitus (HCC); Hypertension associated with diabetes (HCC) 04/03/2025 1:30 PM CDT Office Visit [facility] [address] [place] [phone] Enid Tyler NP Type 2 diabetes mellitus with hyperglycemia, without long-term current use of insulin (HCC) (Primary Dx); Hypertension associated with diabetes (HCC); Hyperlipidemia associated with type 2 diabetes mellitus (HCC); Diabetic neuropathy associated with type 2 diabetes mellitus (HCC) 04/03/2025 Telephone [facility] Medical [facility] Primary Care at [address] [phone] Kelley Marcum MD 04/01/2025 Telephone [facility] Cardiology [address] [place] [phone] Katie Larson NP 03/28/2025 Orders Only [facility] [address] [place] [phone] Neftali Hairston MD from Last 3 Months Medical History Medical History Date Comments Diabetes (HCC) Hypertension CHF (congestive heart failure) (HCC) Chest pain Family History Medical History Relation Name Comments Lupus Mother Relation Name Status Comments Mother Social History Tobacco Use Types Packs/Day Years Used Date Smoking Tobacco: Some Days Vaping Tobacco Cessation:Ready to Q uit: Not Asked; Counseling Given: Not Answered Sex and Gender Information Value Date Recorded Sex Assigned at Not on file Legal Sex Male 8:59 AM CDT Gender Identity Not on file Sexual Orientation Not on file Obstetrics History Last Filed Vital Signs Vital Sign Reading Time Taken Comments Blood Pressure 128/98 04/03/2025 1:22 PM CDT Pulse 82 04/03/2025 1:22 PM CDT Temperature - - Respiratory Rate 18 04/03/2025 1:22 PM CDT Oxygen Saturation - - Inhaled Oxygen Concentration - - Weight 93.1 kg (205 lb 3.2 oz) 04/03/2025 1:22 P M CDT Height 177.8 cm (5' 10) 04/03/2025 1:22 PM CDT Body Mass Index 29.44 04/03/2025 1:22 PM CDT Plan of Treatment Health Maintenance Due Date Last Done Comments Colon Cancer Screening-Colonoscopy 1976 Depression Screening 1976 Hepatitis C Screening 1976 Dilated Eye Exam 1976 DTaP/Tdap/Td Vaccine (1 - Tdap) 1987 Hepatitis B Screening 1994 Regular Well Visit/Exam 18-64 1994 Pneumococcal vaccine <65 (1 of 2 - PCV) 1995 Influenza Vaccine (#1) 2025 Hemoglobin A1C 10/04/2025 04/03/2025, 05/20/2024 Albumin Creatinine Ratio, Urine 04/03/2026 Foot Exam 04/03/2026 04/03/2025, 05/20/2024 Lipid Panel 04/03/2026 04/03/2025 eGFR 04/03/2026 04/03/2025 Procedures Procedure Name Priority Date/Time Associated Diagnosis Comments EGFR Routine 04/03/2025 2:30 PM CDT Type 2 diabetes mellitus with hyperglycemia, without long-term current use of insulin (HCC) Hypertension associated with diabetes (HCC) ALBUMIN CREATININE RATIO, URINE Routine 04/03/2025 2:30 PM CDT Type 2 diabetes mellitus with hyperglycemia, without long-term current use of insulin (HCC) COMPREHENSIVE METABOLIC PANEL Routine 04/03/2025 2:30 PM CDT Type 2 diabetes mellitus with hyperglycemia, without long-term current use of insulin (HCC) Hypertension associated with diabetes (HCC) LIPID PANEL Routine 04/03/2025 2:30 PM CDT Type 2 diabetes mellitus with hyperglycemia, without long-term current use of insulin (HCC) Hyperlipidemia associated with type 2 diabetes mellitus (HCC) C-PEPTIDE Routine 04/03/2025 2:30 PM CDT Type 2 diabetes mellitus with hyperglycemia, without long-term current use of insulin (HCC) THYROID FUNCTION CASCADE Routine 04/03/2025 2:30 PM CDT Type 2 diabetes mellitus with hyperglycemia, without long-term current use of insulin (HCC) POCT GLUCOSE Routine 04/03/2025 1:24 PM CDT Type 2 diabetes mellitus with hyperglycemia, without long-term current use of insulin (HCC) POCT HEMOGLOBIN A1C Routine 04/03/2025 1 :24 PM CDT Type 2 diabetes mellitus with hyperglycemia, without long-term current use of insulin (HCC) CARDIOLOGY DOCUMENT SCAN Routine 03/26/2025 7:49 AM CDT from Last 3 Months Results * eGFR (04/03/2025 2:30 PM CDT) [facility] eGFR >90 >=60 mL/min/1. 73 m2 Comment: Interpretive Data Reference Interval Normal >/= 90 mL/min/1.73m2 Mildly decreased* 60 - 89 mL/min/1.73m2 Mildly to moderately decreased 45 - 59 mL/min/1.73m2 Moderately to severely decreased 30 - 44 mL/min/1.73m2 Severely decreased 15 - 29 mL/min/1.73m2 Kidney Failure < 15 mL/min/1.73m2 *Relative to young adult level Estimated glomerular filtration rate is determined by the 2020 CKD-EPI equation recommended by the National Kidney Foundation (A Unifying Approach to GFR Estimation: Recommendations of the NKF-ASK Task Force on Reassessing the Inclusion of Race in Diagnosing Kidney Disease, JASN 2020). The CKD-EPI equation should not be used for patients with unstable renal function and has not been validated in children and those over 70. Current interpretive data was last reviewed 2021. Blood 04/03/2025 2:30 PM CDT 04/03/2025 6:10 PM CDT Enidjenn Tyler ELECTRONIC PREPRESS TECHNICIAN LAB BLOOD ORDERABLES Clarice l Result Performing Organization Address City/[facility]/ZIP Co de Phone Number [address] [phone] * Thyroid Function [place] (04/03/2025 2:30 PM CDT) Pathologist [facility] TSH 2.62 0.30 - 4.20 mcIUnit/mL Blood 04/03/2025 2:30 PM CDT 04/03/2025 6:10 PM CDT Enid Tyler ELECTRONIC PREPRESS TECHNICIAN LAB BLOOD ORDERABLES Clarice l Result Performing Organization Address [facility] Co de Phone Number [address] [phone] * (ABNORMAL) Albumin Creatinine Ratio, Urine (04/03/2025 2:30 PM CDT) Albumin Ur 19.8 mg/L Comment: Interpretive Data No reference range established. Current interpretive data was last revised 2018. Creatinine Ur 44.9 mg/dL [facility] Comment: Interpretive Data No reference range established. Current interpretive data was last revised 2018. Albumin Creatinine Ratio, Ur 44(H) 1 - 29 mg/g [facility] Urine 04/03/2025 2:30 PM CDT 04/03/2025 6:10 PM CDT us Enidjenn Tyler ELECTRONIC PREPRESS TECHNICIAN LAB URINE ORDERABLES Clarice l Result Performing Organization Address [facility] Co de Phone Number [address] [address] * C-peptide (04/03/2025 2:30 PM CDT) C-peptide 3.7 1.1 - 4.4 ng/mL Blood 04/03/2025 2:30 PM CDT 04/03/2025 6:10 PM CDT us Enid Tyler ELECTRONIC PREPRESS TECHNICIAN LAB BLOOD ORDERABLES Clarice l Result Performing Organization Address [facility] de Phone Number [address] [address] * (ABNORMAL) Lipid panel (04/03/2025 2:30 PM CDT) Cholesterol 161 30 - 199 mg/dL Comment: Interpretive Data Ages < or = 19 years Acceptable: <170 mg/dL Borderline high: 170-199 mg/dL High: >or= 200 mg/dL Ages > or = 20 years Desirable: <200 mg/dL Borderline high: 200-239 mg/dL High: >or= 240 mg/dL Literature References: 1. Expert Panel on Integrated Guidelines for Cardiovascular Health and Risk Reduction in Children and Adolescents. Pediatrics 2011;128:S213 2. NCEP Expert Panel. Circulation 2004;110:227 Current Interpretive Data was last revised on 2018. Triglycerides 169(H) <=149 mg/dL [facility] Comment: Interpretive Data Ages < or = 9 years Acceptable: <75 mg/dL Borderline high: 75-99 mg/dL High: >or= 100 mg/dL Ages 10 to 20 years Acceptable: <90 mg/dL Borderline high: 90-129 mg/dL High: >or= 130 mg/dL Ages > or = 20 years Desirable: <150 mg/dL Borderline high: 150-199 mg/dL High: 200-499 mg/dL Very high: >or= 499 mg/dL Literature References: 1. Expert Panel on Integrated Guidelines for Cardiovascular Health and Risk Reduction in Children and Adolescents. Pediatrics 2011;128:S213 2. NCEP Expert Panel. Circulation 2004;110:227 Current Interpretive Data was last revised on 2018. HDL 35(L) >=40 mg/dL [facility] Comment: Interpretive Data Ages < or = 19 years Acceptable: >45 mg/dL Borderline low: 40-45 mg/dL Low: <40 mg/dL Ages > or = 20 years Desirable: >or= 60 mg/dL Low: <40 mg/dL Literature References: 1. Expert Panel on Integrated Guidelines for Cardiovascular Health and Risk Reduction in Children and Adolescents. Pediatrics 2011;128:S213 2. NCEP Expert Panel. Circulation 2004;110:227 Current Interpretive Data was last revised on 2018. LDL, calculated 96 <=129 mg/dL [facility] Comment: Interpretive Data Ages < or = 19 years Acceptable: <110 mg/dL Borderline high: 110-129 mg/dL High: >or= 130 mg/dL Ages > or = 20 years Optimal: <100 mg/dL Near optimal: 100-129 mg/dL Borderline high: 130-159 mg/dL High: >160 mg/dL Calculated using the Franklin LDL-C estimating equation. This equation was implemented on 2024. Prior to this date LDL-C was estimated using the Friedewald equation. Literature References: 1. Expert Panel on Integrated Guidelines for Cardiovascular Health and Risk Reduction in Children and Adolescents. Pediatrics 2011;128:S213 2. NCEP Expert Panel. Circulation 2004;110:227 3. Franklin Tipton al. SUZETTE Cardiol. 2020 December 12;5(5):540-548. doi: 10.1001/jamacardio.2020.0013 Current Interpretive Data was last revised on 2024. Non-HDL Cholesterol 126 mg/dL [facility] Comment: Interpretive Data Ages < or = 19 years Acceptable: <120 mg/dL Borderline high: 120-144 mg/dL High: >145 mg/dL Ages > or = 20 years When triglycerides are >200 mg/dL, Non-HDL cholesterol is a secondary target of therapy with treatment goals that are 30 mg/dL greater than the LDL cholesterol target. Literature References: 1. Expert Panel on Integrated Guidelines for Cardiovascular Health and Risk Reduction in Children and Adolescents. Pediatrics 2011;128:S213 2. NCEP Expert Panel. Circulation 2004;110:227 Current Interpretive Data was last revised on 2018. Chol/HDL ratio 5 [facility] Blood 04/03/2025 2:30 PM CDT 04/03/2025 6:10 PM CDT us Enid Tyler NP LAB BLOOD ORDERABLES Clarice tineo Result [facility] [address] [facility] Department [place] [address] * (ABNORMAL) Comprehensive metabolic panel (04/03/2025 2:30 PM CDT) Sodium 137 135 - 145 mmol/L Potassium, pl 4.5 3.3 - 4.9 mmol/L [facility] Chloride 101 97 - 110 mmol/L [facility] CO2 25 22 - 32 mmol/L [facility] Anion gap 11 2 - 15 mmol/L [facility] BUN 14 6 - 25 mg/dL [facility] Creatinine 0.78(L) 0.80 - 1.30 mg/dL [facility] Glucose 307(H) 70 - 199 mg/dL [facility] Comment: Interpretive Data Fasting glucose >/= 126 mg/dl is diagnostic for diabetes. Fasting is defined as no caloric intake for at least 8 hours. Fasting glucose between 100 mg/dl to 125 mg/dl is diagnostic of prediabetes. In a patient with classic symptoms of hyperglycemia or hyperglycemic crisis, a random glucose >/= 200 mg/dl is diagnostic for diabetes. In the absence of unequivocal hyperglycemia, results should be confirmed by repeat testing. The classification and Diagnosis of Diabetes Diabetes Care 2021; 46: S19-S40. Current interpretive data was last revised 2022. Calcium 9.0 8.5 - 10.3 mg/dL [facility] Bilirubin, total 0.4 0.1 - 1.2 mg/dL [facility] Protein, pl 6.9 6.5 - 8.5 g/dL [facility] Albumin 4.0 3.5 - 5.0 g/dL [facility] Alk phos 101 40 - 130 Units/L [facility] ALT 35 7 - 55 Units/L [facility] AST 32 10 - 50 Units/L [facility] Blood 04/03/2025 2:30 PM CDT 04/03/2025 6:10 PM CDT us Enid Tyler ELECTRONIC PREPRESS TECHNICIAN LAB BLOOD ORDERABLES Clarice l Result [facility] [address] [facility] Department [place] [address] * (ABNORMAL) POCT hemoglobin A1c (04/03/2025 1:24 PM CDT) Hemoglobin A1C, POC 12.7(A) 4.0 - 5.6 % Capillary blood 04/03/2025 1 :24 PM CDT us Enid Tyler NP POINT OF CARE TEST ORDERA BLES Final Result * (ABNORMAL) POCT glucose (04/03/2025 1:24 PM CDT) Glucose Blood, POC 232 Normal Fasting 70 - 100, Random <200 mg/dL Comment:PPG 3 Hrs Blood 04/03/2025 1:24 PM CDT us Enidjenn Tyler NP POINT OF CARE TEST ORDERA BLES Final Result * Cardiology Document Scan (03/26/2025 7:49 AM CDT) Anatomical Region Laterality Modality Other us Neftali Hairston MD [facility] PROCE ZAKIYA Final Result from Last 3 Months Insurance [facility] Care Teams Boat Laborer Relationship Specialty Start Date End Date Carlos Shields PA [address] [place] [id number] PCP - General Internal Medicine 04/19/24
--- OUTSIDE RECORDS SUMMARY | 2025-04-08 07:19 | XMS_ITS | Encounter Summary ---
Author Organization [facility] Healthcare Address [address] [place] [address] Care Team Providers Care Rn Clinical Trials Name Role Phone Carlos Shields Primary Care Provider + Reason for Visit * Reason Onset Date Comments [facility] Inpatient records with labs Encounter Details Date Type Department Care Team (Late st Contact Info) Description 04/07/2025 Telephone [facility] Medical Group Diabetes and Endocrinology [facility] [place] [phone] [place] [address] [facility] [address] [place] [address] [facility] Inpatient records with labs Social History Tobacco Use Types Packs/Day Years Used Date Smoking Tobacco: Some Days Vaping Sex and Gender Information Value Date Recorded Sex Assigned at Not on file Legal Sex Male 8:59 AM CDT Gender Identity Not on file Sexual Orientation Not on file documented as of this encounter Miscellaneous Notes * Telephone Encounter - Enid Tyler NP - 04/07/2025 8:27 AM CDT Noted. Thank you * Telephone Encounter - Mackenzie Richards - 04/07/2025 7:48 AM CDT Incoming Fax: DEMARCUS: 04/03/25 NOV: 06/11/25 Fax received from: [facility] Reason for Fax: Received requested records please review documented in this encounter Plan of Treatment Not on file documented as of this encounter Visit Diagnoses Not on filedocumented in this encounter Care Teams Rn Clinical Trials Relationship Specialty Start Date End Date Carlos Shields PA [address] [phone] PCP - General Internal Medicine 04/19/24 documented as of this encounter
--- NOTE | 2025-04-08 07:22 | ED.RECABL ---
HPI - Recheck/Abnormal Lab/Rx General Chief Complaint: Recheck/Abnormal Lab/Rx Stated Complaint: low blood pressure Time Seen by Provider: 04/08/25 07:04 History of Present Illness HPI narrative: This is a 49-year-old male with history of cardiomyopathy, hypertension, diabetes who presents to the ED for lightheadedness, sweating. Patient states that he woke up this morning feeling symptoms. His blood sugar was 2 80s. Denies recent illnesses including fevers, chills, chest pain, shortness of breath. He has LifeVest in place and states that did not go off. Was admitted a couple weeks ago was told he was in heart failure. His appointment with his oil laboratory analyst is today. Related Data Home Medications ?Medication ?Instructions ?Recorded ?Confirmed ?Last Taken ?Type levothyroxine 50 mcg capsule 50 mcg PO DAILY 09/01/21 04/08/25 Unknown History insulin glargine 100 unit/mL 12 unit subcut HS 04/08/25 04/08/25 04/07/25 20:00 History subcutaneous solution (Lantus 12 units U-100 Insulin) sitagliptin phosphate 100 mg 100 mg PO DAILY 04/08/25 04/08/25 04/07/25 09:00 History tablet (Januvia) 100 mg Allergies Allergy/AdvReac Type Severity Reaction Status Date / Time No Known Allergies Allergy Verified 04/08/25 09:37 Review of Systems Review of Systems: Gen.: Denies fevers or chills Eyes: Denies eye pain or visual change ENT: Denies congestion Respiratory: Denies shortness of breath or cough CV: Denies chest pain or palpitations GI: Denies abdominal pain nausea, emesis or diarrhea denies burning, urgency, frequency or hematuria Musculoskeletal: Denies back pain or muscle pain Neuro: Denies numbness, tingling, weakness or focal weakness Skin: Denies rash Except as documented, all other systems reviewed and negative PMF Past Medical History Medical History Hypokalemia Hyperlipidemia associated with type 2 diabetes mellitus Hypertension associated with diabetes Depression Anxiety Hyperlipidemia Hypertension Diabetes mellitus Family History Family History Mother Diabetes mellitus Lupus Father Obesity Social History Social History Smoking status: Never smoker Tobacco type: cigarettes Smoking end date: 08/14/12 Alcohol intake: never Substance use: former Substance use type: marijuana Other substance usage details: 5-10 mg edibles several times a week Lack of Transportation: No Lack of Food: Never True Current Housing: I Have Housing Concerned About Future Housing: No Difficulty Paying Gas/Electric Bills: No Difficulty Paying for Meds: No Currently Unemployed: No Education: High School Diploma/GED Difficulty w/ Childcare or Family Care: No Spiritual care concerns: No Exam Narrative: APPEARANCE: No acute distress, nontoxic, resting in bed EYES: EOMI HEENT: Normocephalic, atraumatic, OMM RESPIRATORY: No respiratory distress Clear to auscultation bilaterally with no rhonchi wheezing or rales. CARDIOVASCULAR: Life vest in place. Regular rate and rhythm without murmurs rubs or gallops. ABDOMINAL: Soft, nontender, nondistended, no rebound or guarding MUSCULOSKELETAl: Moves all extremities. No clubbing, cyanosis or edema. NEURO: Awake and alert. Following commands, speech normal, no focal deficits SKIN:: Warm, dry. No rashes lesions or abrasions PSYCHIATRIC: Normal affect/mood, Course Vital Signs Vital signs: Vital Signs Temperature 97.5 F L 04/08/25 06:22 Pulse Rate 142 H 04/08/25 06:22 Respiratory Rate 16 04/08/25 06:22 Blood Pressure 107/84 04/08/25 06:22 Pulse Oximetry 100 04/08/25 06:22 Oxygen Delivery Room Air 04/08/25 06:22 Temperature 97.7 F 04/08/25 11:51 Pulse Rate 85 04/08/25 12:00 Respiratory Rate 20 04/08/25 11:51 Blood Pressure 130/93 H 04/08/25 11:51 Pulse Oximetry 99 04/08/25 11:51 Oxygen Delivery Room Air 04/08/25 06:22 MDM - Recheck/Abnormal Lab/Rx MDM Narrative Medical decision making narrative: 49-year-old male that presented to the ED for lightheadedness and palpitations. On initial evaluation, patient's blood pressure is 107/84 in tachycardia to the 140s. Aside from tachycardia, her lungs clear. Abdomen soft nontender. CC was without significant abnormalities. BNP is elevated at 7.4. Initial troponin negative. Mildly hyponatremic at 131. Hyperglycemia to 349. Patient had multiple episodes of diarrhea previous ED course. Suspect he may be dehydrated due to this. Given his tenuous cardiac status, believe that he would benefit from admission for observation and rehydration. Patient was agreeable to this plan. I did reach out to Cardiology see the patient as consult. I discussed case with hospitalist, who will admit the patient. Differential Diagnosis Differential diagnosis: Likely other (Dehydration, gastroenteritis, acute on chronic cardiomyopathy, ACS) Medical Records Attestation: I reviewed the patient's medical records. Lab Data Attestation: I reviewed the patient's lab results. 04/08/25 06:47 04/08/25 06:47 Labs: Lab Results 04/08/25 04/08/25 04/08/25 Range/Units 06:46 06:47 07:10 WBC 10.8 H (4.5-10.0) K/mm3 RBC 4.95 (4.6-6.20) M/mm3 Hgb 14.7 (14.0-18.0) g/dL Hct 44.3 (42.0-52.0) % MCV 89.5 (80-100) fl MCH 29.7 (26-34) pg MCHC 33.2 (32-36) g/dl RDW 12.9 (11.5-14.5) % Plt Count 363 (150-375) k/mm3 MPV 10.0 (7.4-10.4) fl Immature Gran % (Auto) 0.4 (0-0.5) % Neut % (Auto) 65.9 (45.5-73.1) % Lymph % (Auto) 20.4 (18.3-44.2) % [place] % (Auto) 9.2 H (2.6-8.5) % Eos % (Auto) 2.8 (0-4.4) % Baso % (Auto) 1.3 H (0.2-1.2) % Lymph # (Auto) 2.21 (0.9-3.2) K/mm3 [place] # (Auto) 1.0 H (0.1-0.6) K/mm3 Eos # (Auto) 0.3 (0-0.3) K/mm3 Baso # (Auto) 0.1 (0.0-0.1) K/mm3 Abs Immat Gran (auto) 0.04 H (0.00-0.031) K/mm3 Absolute Neuts (auto) 7.2 H (1.3-6.7) K/mm3 Absolute Nucleated RBC 0.000 (0.0-0.012) K/mm3 Nucleated RBC % 0.0 (0.0-0.2) % PT 13.0 (11.1-14.7) Seconds INR 1.0 APTT 28.2 (22.3-36.8) Seconds Sodium 131 L (137-145) mmol/L Potassium 4.0 (3.4-5.0) mmol/L Chloride 105 (98-107) mmol/L Carbon Dioxide 17 L (22-30) mmol/L Anion Gap 9 (4-12) mmol/L BUN 20 (9-20) mg/dL Creatinine 0.77 (0.7-1.3) mg/dL Estim Creat Clear Calc 118 ml/min Estimated GFR > 60 (59 - ) Glucose 349 H (65-110) mg/dL Hemoglobin A1c Pending Lactic Acid 1.7 (0.7-2.0) mmol/L Calcium 8.7 (8.4-10.2) mg/dL Magnesium 1.7 (1.6-2.3) mg/dL Total Bilirubin 0.3 (0.2-1.3) mg/dL AST 85 H (17-59) U/L ALT 57 H (6-50) U/L Alkaline Phosphatase 122 (38-126) U/L Troponin I 0.031 (0.000-0.034) ng/mL NT-Pro-B Natriuret Pep 744 H (19.9-100) pg/mL Total Protein 6.1 L (6.3-8.2) g/dL Albumin 3.3 L (3.5-5.1) g/dL Lipase 105 (23-300) U/L Urine Color Yellow (Yellow) Urine Appearance Clear (Clear) Urine pH 5.5 (5.0-9.0) Ur Specific [place] 1.029 (1.001-1.035) Urine Protein 2+ H (Negative) mg/dL Urine Glucose (UA) 3+ H (Negative) mg/dL Urine Ketones Negative (Negative) mg/dL Ur Blood (Man) Negative (Negative) Urine Nitrate Negative (Negative) Urine Bilirubin Negative (Negative) Urine Urobilinogen 0.2 (<2.0) mg/dL Leukocyte Esterase Rfl Negative (Negative) SRIRAM/UL Urine RBC 0-2 (0-2) /hpf Urine WBC 0-5 (0-3) /hpf Ur Squamous Epith Cells None seen (Few) /hpf Urine Bacteria None seen /hpf Urine Casts 3-5 Imaging Data Radiologist's impression: Impressions Chest X-Ray 04/08/25 07:03 IMPRESSION: 1: NO ACUTE CARDIOPULMONARY DISEASE. ECG Data EKG #1: ECG completion date: 04/08/25 ECG completion time: 06:31 Interpretation: Sinus tachycardia rate of 142, left axis deviation, left bundle-branch block, does not meet Sgarbossa criteria EKG #2: ECG completion date: 04/08/25 ECG completion time: 08:07 Prior ECG tracings: available for review Interpretation: Sinus tachycardia rate of 103, left axis deviation, left atrial enlargement, left bundle-branch block, does not meet Sgarbossa criteria. Compared to prior, rate is improved Discharge Plan Discharge Clinical Impression: Acute hyponatremia, Diarrhea due to drug Cardiomyopathy Qualifiers: Cardiomyopathy type: unspecified Qualified Code(s): I42.9 - Cardiomyopathy, unspecified Diabetes mellitus Qualifiers: Diabetes mellitus type: type 2 Diabetes mellitus senior care insulin use: without senior care use Diabetes mellitus complication status: with hyperglycemia Qualified Code(s): E11.65 - Type 2 diabetes mellitus with hyperglycemia Patient Disposition: Still a Patient Condition: Stable
[2025-04-08 07:24] LABS: Troponin I 0.031 ng/mL (0.000-0.034)
[2025-04-08 07:25] LABS: Add Urine Microscopic? YES; Appearance Urine Clear (Clear); Glucose Urine UA 3+ mg/dL (Negative); Leukocyte Esterase Ur Negative LEU/UL (Negative); Nitrate Urine Negative (Negative); Specific Grav Ur 1.029 (1.001-1.035)
[2025-04-08 07:26] LABS: INR 1.0; Prothrombin Time 13.0 Seconds (11.1-14.7)
--- NOTE | 2025-04-08 07:28 | PC.NURSE ---
Assumed care of pt from Mar.
[2025-04-08 07:54] LABS: NT Pro B Type Natriuretic Pept 744 pg/mL (19.9-100)
[2025-04-08 08:02] LABS: Partial Thromboplastin Time 28.2 Seconds (22.3-36.8)
--- NOTE | 2025-04-08 08:02 | ECG_ITS ---
Test Date: 2025-04-08 08:07:53 Measurements Intervals [place] Rate: 103 P: 6 ID: 200 QRS: -34 QRSD: 160 T: 115 QT: 406 QTc: 533 Interpretive Statements SINUS TACHYCARDIA LEFT AXIS DEVIATION LEFT ATRIAL ENLARGEMENT BORDERLINE AV CONDUCTION DELAY LEFT BUNDLE BRANCH BLOCK BASELINE ARTIFACT- I, II, AVR ABNORMAL ECG Compared to ECG 04/08/2025 06:31:47 ATRIAL FLUTTER NO LONGER PRESENT Electronically Signed On 04-08-2025 08:32:02 CDT by Lenny Griffin D.O.
[2025-04-08] MEDS: SODIUM CHLORIDE 0.9% IV 500 ML 999 ML IV CONT (08:12)
--- NOTE | 2025-04-08 09:47 | PC.NURSE ---
Patient arrived to floor. Tele applied. Admission complete.
[2025-04-08 10:10] LABS: Troponin I 0.037 ng/mL (0.000-0.034)
--- NOTE | 2025-04-08 11:20 | PM.IMHP ---
H&P: HPI History of Present Illness Date/Time: 04/08/25 11:20 Chief Complaint: Víctor Narrative: 49 y/o M with PMH of hypertension, hyperlipidemia, and diabetes presents here with shortness of breath. The patient was recently hospitalized, and during the hospitalization, the patient was examined by Cardiology. Patient's ejection fraction is 30-35%. Patient will be discharged with LifeVest. Patient advised on medication compliance, alcohol, and smoking cessation. Agrees with the plan. The patient will be started on Entresto and Jardiance, and will continue on Coreg 6.25 mg as per Cardiology. Of note, he underwent CTA chest to rule out aortic dissection and pulmonary embolism, which was negative. The patient was discharged and advised to follow up with Cardiology for a further ischemic workup. Previously, the patient was noncompliant with medication, but after the last discharge, the patient modified his lifestyle and resolved his primary complaint with medication and rescheduled his follow-up appointment. He also did Endocrinology, who increased Lantus from 10 units to 12 units. Patient restarted his Metformin 2nd time and unfortunately had multiple episodes of diarrhea and abdominal pain. He did not make today's appointment with cardiology because he was hospitalized. The patient will eventually require a cardiac catheterization, and he will follow up closely with Cardiology after discharge. Since 2 times he failed Metformin twice, I will go ahead and start Bolus insulin 4 U along with Lantus 12 U and stop Metformin. Review of Systems Review of Systems: Gen.: Denies fevers or chills Eyes: Denies eye pain or visual change ENT: Denies congestion Respiratory: Denies shortness of breath or cough CV: Denies chest pain or palpitations GI: Denies abdominal pain nausea, emesis or diarrhea denies burning, urgency, frequency or hematuria Musculoskeletal: Denies back pain or muscle pain Neuro: Denies numbness, tingling, weakness or focal weakness Skin: Denies rash Except as documented, all other systems reviewed and negative Constitutional: Constitutional: Reports lethargy Eyes: Eyes: Reports no additional eye complaints ENT: Reports system reviewed and no additional complaints, except as documented Cardiovascular: Cardiovascular: Reports as per HPI Respiratory: Respiratory: Reports no additional respiratory complaints Gastrointestinal: Gastrointestinal: Reports as per HPI and Reports diarrhea Musculoskeletal: Musculoskeletal: Reports no additional musculoskeletal complaints Integumentary/Breasts: Skin/Breast: Reports system reviewed and no additional complaints, except as docu Neurologic: Reports system reviewed and no additional complaints, except as documented Endocrine: Endocrine: Reports no additional endocrine complaints Hematologic/Lymphatic: Hematologic/Lymphatic: Reports no additional hematologic/lymphatic complaints Allergic/Immunologic: Allergic/Immunologic: Reports no additional allergic/immunologic complaints [facility] Past Medical History Medical History Hypokalemia Hyperlipidemia associated with type 2 diabetes mellitus Hypertension associated with diabetes Depression Anxiety Hyperlipidemia Hypertension Diabetes mellitus Family History Family History Mother Diabetes mellitus Lupus Father Obesity Social History Social History Smoking status: Never smoker Tobacco type: cigarettes Smoking end date: 08/14/12 Alcohol intake: never Substance use: former Substance use type: marijuana Other substance usage details: 5-10 mg edibles several times a week Lack of Transportation: No Lack of Food: Never True Current Housing: I Have Housing Concerned About Future Housing: No Difficulty Paying Gas/Electric Bills: No Difficulty Paying for Meds: No Currently Unemployed: No Education: High School Diploma/GED Difficulty w/ Childcare or Family Care: No Spiritual care concerns: No Meds Home Medications and Allergies Home Medications ?Medication ?Instructions ?Recorded ?Confirmed ?Type atorvastatin 20 mg tablet 20 mg PO DAILY #30 tabs 09/01/21 04/08/25 Rx levothyroxine 50 mcg capsule 50 mcg PO DAILY 09/01/21 04/08/25 History tramadol 50 mg tablet 50 mg PO Q6H PRN pain #10 tabs 06/22/24 04/08/25 Rx blood sugar diagnostic (OneTouch #1 pkg 03/28/25 04/08/25 Rx Verio test strips) blood-glucose meter (OneTouch #1 pkg 03/28/25 04/08/25 Rx Verio Flex Meter) carvedilol 6.25 mg tablet (Coreg) 6.25 mg PO Q12HR #30 tabs 03/28/25 04/08/25 Rx empagliflozin 10 mg tablet 10 mg PO DAILY #30 tabs 03/28/25 04/08/25 Rx (Jardiance) insulin syringe,safety needle 0.5 #1 pkg 03/28/25 04/08/25 Rx mL 31 gauge x 5/16 lancets 30 gauge (OneTouch Delica #1 pkg 03/28/25 04/08/25 Rx Plus Lancet) metformin 500 mg tablet 1,000 mg (2 x 500 mg) PO BID #60 03/28/25 04/08/25 Rx tabs pen needle, diabetic 32 gauge x #1 pkg 03/28/25 04/08/25 Rx sacubitril 24 mg-valsartan 26 mg 1 tablet PO Q12HR #60 tabs 03/28/25 04/08/25 Rx tablet (Entresto) spironolactone 25 mg tablet 25 mg PO QAM #30 tabs 03/28/25 04/08/25 Rx insulin glargine 100 unit/mL 12 unit subcut HS 04/08/25 04/08/25 History subcutaneous solution (Lantus U-100 Insulin) sitagliptin phosphate 100 mg 100 mg PO DAILY 04/08/25 04/08/25 History tablet (Januvia) Allergies Allergy/AdvReac Type Severity Reaction Status Date / Time No Known Allergies Allergy Verified 04/08/25 09:37 Vital Signs Vital Signs - 24 hr 04/08/25 06:22 04/08/25 06:30 04/08/25 06:44 Temperature 97.5 F L Pulse Rate 142 H 142 H 135 H Respiratory Rate 16 25 H 20 Blood Pressure 107/84 107/84 Pulse Oximetry 100 99 99 Oxygen Delivery Room Air 04/08/25 06:45 04/08/25 07:00 04/08/25 07:01 Temperature Pulse Rate 140 H 135 H 136 H Respiratory Rate 31 H 37 H 28 H Blood Pressure 103/82 Pulse Oximetry 99 98 98 Oxygen Delivery 04/08/25 07:15 04/08/25 07:30 04/08/25 07:45 Temperature Pulse Rate 140 H 142 H 132 H Respiratory Rate 20 30 H 24 H Blood Pressure Pulse Oximetry 98 98 Oxygen Delivery 04/08/25 07:57 04/08/25 08:00 04/08/25 08:01 Temperature Pulse Rate 103 H 99 100 Respiratory Rate 21 H 29 H 17 Blood Pressure 132/99 H 137/95 H Pulse Oximetry 97 100 Oxygen Delivery 04/08/25 08:15 04/08/25 08:30 04/08/25 08:30 Temperature Pulse Rate 101 H 95 96 Respiratory Rate 28 H 20 25 H Blood Pressure 112/78 Pulse Oximetry 98 95 95 Oxygen Delivery 04/08/25 08:31 04/08/25 08:32 04/08/25 08:45 Temperature Pulse Rate 97 96 Respiratory Rate 33 H 20 18 Blood Pressure 112/78 Pulse Oximetry 96 96 Oxygen Delivery 04/08/25 09:00 04/08/25 09:01 04/08/25 09:27 Temperature 98.3 F Pulse Rate 95 95 96 Respiratory Rate 19 22 H 20 Blood Pressure 113/84 107/80 Pulse Oximetry 94 97 98 Oxygen Delivery Exam Narrative: APPEARANCE: No acute distress, nontoxic, resting in bed EYES: EOMI HEENT: Normocephalic, atraumatic, OMM RESPIRATORY: No respiratory distress Clear to auscultation bilaterally with no rhonchi wheezing or rales. CARDIOVASCULAR: Life vest in place. Regular rate and rhythm without murmurs rubs or gallops. ABDOMINAL: Soft, nontender, nondistended, no rebound or guarding MUSCULOSKELETAl: Moves all extremities. No clubbing, cyanosis or edema. NEURO: Awake and alert. Following commands, speech normal, no focal deficits SKIN:: Warm, dry. No rashes lesions or abrasions PSYCHIATRIC: Normal affect/mood, Const: Other: Well-developed well-nourished white male appearing a bit older than his stated age otherwise comfortable in no distress at this time Eyes: Sclera: sclerae normal Pupils: Equal, round and reactive pupils present Neck: Neck: supple and no JVD Resp: Effort & Inspection: normal respiratory effort Auscultation: clear to auscultation bilaterally Other: No rales rhonchi or wheezing Cardio: Rate: regular rate Rhythm: regular rhythm Other: Paradoxically split S2, no murmur GI: Auscultation: normal bowel sounds Skin: General skin exam: normal color Neuro: Cranial nerves: Yes Equal, round and reactive pupils present Other: Alert and oriented x3 Extrem: General: normal to inspection H&P: Results Labs Labs: Short CBC 04/08/25 Range/Units 06:47 WBC 10.8 H (4.5-10.0) K/mm3 Hgb 14.7 (14.0-18.0) g/dL Hct 44.3 (42.0-52.0) % Plt Count 363 (150-375) k/mm3 BMP 04/08/25 06:47 Sodium 131 L Potassium 4.0 Chloride 105 Carbon Dioxide 17 L BUN 20 Creatinine 0.77 Glucose 349 H Calcium 8.7 Cardiac Enzymes 04/08/25 04/08/25 Range/Units 06:47 09:20 Troponin I 0.031 0.037 H* (0.000-0.034) ng/mL Liver Function 04/08/25 Range/Units 06:47 Total Bilirubin 0.3 (0.2-1.3) mg/dL AST 85 H (17-59) U/L ALT 57 H (6-50) U/L Alkaline Phosphatase 122 (38-126) U/L Albumin 3.3 L (3.5-5.1) g/dL Urine 04/08/25 Range/Units 07:10 Urine Color Yellow (Yellow) Urine Appearance Clear (Clear) Urine pH 5.5 (5.0-9.0) Ur Specific [place] 1.029 (1.001-1.035) Urine Protein 2+ H (Negative) mg/dL Urine Glucose (UA) 3+ H (Negative) mg/dL Assessment and Plan Assessment and plan (1) Diabetes mellitus: Qualifiers: Diabetes mellitus complication status: with hyperglycemia Diabetes mellitus long term care pharmacist insulin use: without long term care pharmacist use Diabetes mellitus type: type 2 Qualified Code(s): E11.65 - Type 2 diabetes mellitus with hyperglycemia Code(s): E11.9 - Type 2 diabetes mellitus without complications Status: Chronic Assessment and Plan: Will discontinue metformin Started on NovoLog 4 units bolus Continue Lantus 12 units Low-dose sliding scale Hypoglycemic protocol (2) Cardiomyopathy: Code(s): I42.9 - Cardiomyopathy, unspecified Status: Acute Assessment and Plan: Hold Carvedilol 6.25 mg PO QD Continue Entresto Hold Spironolactone 25 mg PO QD (3) CHF (congestive heart failure): Qualifiers: Heart failure chronicity: acute Heart failure type: unspecified Qualified Code(s): I50.9 - Heart failure, unspecified Code(s): I50.9 - Heart failure, unspecified Status: Suspected Assessment and Plan: Same as above (4) Hyperlipidemia associated with type 2 diabetes mellitus: Code(s): E11.69 - Type 2 diabetes mellitus with other specified complication; E78.5 - Hyperlipidemia, unspecified Status: Acute Assessment and Plan: Cont Atorvastatin 20 mg PO QD Plan Code: Full code DVT prophylaxis: Lovenox 40mg Sub q Hospitalist [facility] Advance Care Plan I have confirmed that the patient's Advanced Care Plan is present, code status is documented, or surrogate decision maker is listed in patient medical record.: Yes Medication Reconciliation I have utilized all available resources to obtain, update and review the patients current medications (includes all prescriptions, OTC, herbals, cannabis, and nutritional supplements).: Yes
[2025-04-08] MEDS: INSULIN ASPART (*BKC) 100 UNITS/ML SUB-Q ×3 (12:31→20:47)
--- NOTE | 2025-04-08 12:46 | PM.CNCAR ---
Assessment and Plan Assessment and plan (1) Cardiomyopathy: Code(s): I42.9 - Cardiomyopathy, unspecified Status: Acute Plan 49-year-old man with recently diagnosed cardiomyopathy who enters the hospital with hypotension, volume depletion probably because of problematic diarrhea that appears to be the result of recent reinstitution of metformin therapy. His guideline directed medical therapy has appropriately been placed on hold for the time being. Once he is volume resuscitated these medication should be gradually resumed. I will notify my partner that he did not make today's appointment because he was hospitalized in this setting. As mentioned in the previous notes he should undergo a catheterization to assess for ischemic disease contributing to his LV dysfunction especially given his risk factors. That of course does not have to happen today he is not in the best situation to undergo an angiogram given his dehydration and hypotension at the moment. The tachycardia with which he presented was sinus tachycardia due to dehydration Mark Tucker MD [facility] History of Present Illness History of Present Illness Consult date/time: 04/08/25 12:46 Reason For Visit: dehydration,cardiomyopathy Narrative: This is a 49-year-old man who is known to our service with a recent diagnosis of a cardiomyopathy who is admitted today to the hospital because of volume depletion, hypotension, tachycardia after being recently started on metformin for his diabetes. The patient was hospitalized here earlier this month with congestive heart failure. The reader is referred to that chart for details in essence he was found to have a left bundle branch block and significant left ventricular systolic dysfunction with low ejection fraction he was started on standard guideline directed medical therapy and had a good response. His medications included carvedilol, Entresto and spironolactone as well as Januvia. He also has diabetes. In follow-up after the recent discharge he was placed back on metformin by his primary care provider. He states that he has had difficulty with that medication in the past causing significant diarrhea. When he was put back on the medication he has been having diarrhea for the last 7-10 days. This morning he was feeling poorly he woke up from bed with the sense of sweating/diaphoresis. He took his blood pressure and his systolic blood pressure was in the 70s. He was advised by his family to come into the hospital an ambulance was called he was brought here. In the emergency department he appeared to be volume depleted he was tachycardic which was the principal reason for consulting me to see him today. It appears he was in a sinus tachycardia as he has slowly improved with, hydration. He is currently in sinus rhythm with a heart rate 90-100. He is not having any shortness of breath or edema. He denies any chest pain. Our plan at the time of his recent discharge was to see him in the office and arrange for ischemia evaluation in the way of catheterization because of his new lead/recently diagnosed cardiomyopathy. Because of his hypotension his GDMT is now on hold. His electrolytes look okay his renal function remains normal. Review of Systems Constitutional: Constitutional: Reports lethargy Eyes: Eyes: Reports no additional eye complaints ENT: Reports system reviewed and no additional complaints, except as documented Cardiovascular: Cardiovascular: Reports as per HPI Respiratory: Respiratory: Reports no additional respiratory complaints Gastrointestinal: Gastrointestinal: Reports as per HPI and Reports diarrhea Musculoskeletal: Musculoskeletal: Reports no additional musculoskeletal complaints Integumentary/Breasts: Skin/Breast: Reports system reviewed and no additional complaints, except as docu Neurologic: Reports system reviewed and no additional complaints, except as documented Endocrine: Endocrine: Reports no additional endocrine complaints Hematologic/Lymphatic: Hematologic/Lymphatic: Reports no additional hematologic/lymphatic complaints Allergic/Immunologic: Allergic/Immunologic: Reports no additional allergic/immunologic complaints PMF Past Medical History Medical History Hypokalemia Hyperlipidemia associated with type 2 diabetes mellitus Hypertension associated with diabetes Depression Anxiety Hyperlipidemia Hypertension Diabetes mellitus Family History Family History Mother Diabetes mellitus Lupus Father Obesity Social History Social History Smoking status: Never smoker Tobacco type: cigarettes Smoking end date: 08/14/12 Alcohol intake: never Substance use: former Substance use type: marijuana Other substance usage details: 5-10 mg edibles several times a week Lack of Transportation: No Lack of Food: Never True Current Housing: I Have Housing Concerned About Future Housing: No Difficulty Paying Gas/Electric Bills: No Difficulty Paying for Meds: No Currently Unemployed: No Education: High School Diploma/GED Difficulty w/ Childcare or Family Care: No Spiritual care concerns: No Meds Home Medications and Allergies Home Medications ?Medication ?Instructions ?Recorded ?Confirmed ?Type atorvastatin 20 mg tablet 20 mg PO DAILY #30 tabs 09/01/21 04/08/25 Rx levothyroxine 50 mcg capsule 50 mcg PO DAILY 09/01/21 04/08/25 History tramadol 50 mg tablet 50 mg PO Q6H PRN pain #10 tabs 06/22/24 04/08/25 Rx blood sugar diagnostic (OneTouch #1 banner 03/28/25 04/08/25 Rx Verio test strips) blood-glucose meter (OneTouch #1 banner 03/28/25 04/08/25 Rx Verio Flex Meter) carvedilol 6.25 mg tablet (Coreg) 6.25 mg PO Q12HR #30 tabs 03/28/25 04/08/25 Rx empagliflozin 10 mg tablet 10 mg PO DAILY #30 tabs 03/28/25 04/08/25 Rx (Jardiance) insulin syringe,safety needle 0.5 #1 banner 03/28/25 04/08/25 Rx mL 31 gauge x 5/16 lancets 30 gauge (OneTouch [facility] #1 banner 03/28/25 04/08/25 Rx Plus Lancet) metformin 500 mg tablet 1,000 mg (2 x 500 mg) PO BID #60 03/28/25 04/08/25 Rx tabs pen needle, diabetic 32 gauge x #1 banner 03/28/25 04/08/25 Rx 5/32 sacubitril 24 mg-valsartan 26 mg 1 tablet PO Q12HR #60 tabs 03/28/25 04/08/25 Rx tablet (Entresto) spironolactone 25 mg tablet 25 mg PO QAM #30 tabs 03/28/25 04/08/25 Rx insulin glargine 100 unit/mL 12 unit subcut HS 04/08/25 04/08/25 History subcutaneous solution (Lantus U-100 Insulin) sitagliptin phosphate 100 mg 100 mg PO DAILY 04/08/25 04/08/25 History tablet (Januvia) Allergies Allergy/AdvReac Type Severity Reaction Status Date / Time No Known Allergies Allergy Verified 04/08/25 09:37 Vital Signs Vital Signs - 24 hr 04/08/25 06:22 04/08/25 06:30 04/08/25 06:44 Temperature 36.4 C L Pulse Rate 142 H 142 H 135 H Respiratory Rate 16 25 H 20 Blood Pressure 107/84 107/84 Pulse Oximetry 100 99 99 Oxygen Delivery Room Air 04/08/25 06:45 04/08/25 07:00 04/08/25 07:01 Temperature Pulse Rate 140 H 135 H 136 H Respiratory Rate 31 H 37 H 28 H Blood Pressure 103/82 Pulse Oximetry 99 98 98 Oxygen Delivery 04/08/25 07:15 04/08/25 07:30 04/08/25 07:45 Temperature Pulse Rate 140 H 142 H 132 H Respiratory Rate 20 30 H 24 H Blood Pressure Pulse Oximetry 98 98 Oxygen Delivery 04/08/25 07:57 04/08/25 08:00 04/08/25 08:01 Temperature Pulse Rate 103 H 99 100 Respiratory Rate 21 H 29 H 17 Blood Pressure 132/99 H 137/95 H Pulse Oximetry 97 100 Oxygen Delivery 04/08/25 08:15 04/08/25 08:30 04/08/25 08:30 Temperature Pulse Rate 101 H 95 96 Respiratory Rate 28 H 20 25 H Blood Pressure 112/78 Pulse Oximetry 98 95 95 Oxygen Delivery 04/08/25 08:31 04/08/25 08:32 04/08/25 08:45 Temperature Pulse Rate 97 96 Respiratory Rate 33 H 20 18 Blood Pressure 112/78 Pulse Oximetry 96 96 Oxygen Delivery 04/08/25 09:00 04/08/25 09:01 04/08/25 09:27 Temperature 36.8 C Pulse Rate 95 95 96 Respiratory Rate 19 22 H 20 Blood Pressure 113/84 107/80 Pulse Oximetry 94 97 98 Oxygen Delivery 04/08/25 11:51 Temperature 36.5 C Pulse Rate 87 Respiratory Rate 20 Blood Pressure 130/93 H Pulse Oximetry 99 Oxygen Delivery Exam Const: Other: Well-developed well-nourished white male appearing a bit older than his stated age otherwise comfortable in no distress at this time Eyes: Sclera: sclerae normal Pupils: Equal, round and reactive pupils present Neck: Neck: supple and no JVD Resp: Effort & Inspection: normal respiratory effort Auscultation: clear to auscultation bilaterally Other: No rales rhonchi or wheezing Cardio: Rate: regular rate Rhythm: regular rhythm Other: Paradoxically split S2, no murmur GI: GI Palp: Yes Soft to palpation Auscultation: normal bowel sounds Skin: General skin exam: normal color Neuro: Other: Alert and oriented x3 Extrem: General: normal to inspection Results Labs and Meds 04/08/25 06:47 04/08/25 06:47 Lab results: Cardiac Enzymes 04/08/25 04/08/25 Range/Units 06:47 09:20 AST 85 H (17-59) U/L Troponin I 0.031 0.037 H* (0.000-0.034) ng/mL Coagulation 04/08/25 Range/Units 06:47 PT 13.0 (11.1-14.7) Seconds APTT 28.2 (22.3-36.8) Seconds CBC 04/08/25 Range/Units 06:47 WBC 10.8 H (4.5-10.0) K/mm3 RBC 4.95 (4.6-6.20) M/mm3 Hgb 14.7 (14.0-18.0) g/dL Hct 44.3 (42.0-52.0) % Plt Count 363 (150-375) k/mm3 Lymph # (Auto) 2.21 (0.9-3.2) K/mm3 Mcintosh # (Auto) 1.0 H (0.1-0.6) K/mm3 Eos # (Auto) 0.3 (0-0.3) K/mm3 Baso # (Auto) 0.1 (0.0-0.1) K/mm3 Comprehensive Metabolic Panel 04/08/25 Range/Units 06:47 Sodium 131 L (137-145) mmol/L Potassium 4.0 (3.4-5.0) mmol/L Chloride 105 (98-107) mmol/L Carbon Dioxide 17 L (22-30) mmol/L BUN 20 (9-20) mg/dL Creatinine 0.77 (0.7-1.3) mg/dL Glucose 349 H (65-110) mg/dL Calcium 8.7 (8.4-10.2) mg/dL AST 85 H (17-59) U/L ALT 57 H (6-50) U/L Alkaline Phosphatase 122 (38-126) U/L Total Protein 6.1 L (6.3-8.2) g/dL Albumin 3.3 L (3.5-5.1) g/dL Intake and Output 08/04/08/25 04/08/25 23:59 07:59 15:59 Intake Total 500 Balance 500 Intake: IV 500 Sodium Chloride 0.9% IV 500 ml 500 @ 999 mls/hr IV CONT .Q31M [facility] Rx#:[id number] Patient Weight 04/08/25 23:59 Weight 94.1 kg
[2025-04-08] MEDS: ENOXAPARIN 40 MG/0.4 ML SYRINGE SUB-Q (14:59)
[2025-04-08] MEDS: SPIRONOLACTONE 25 MG TABLET PO (14:59)
[2025-04-08 18:28] LABS: Hemoglobin A1C 12.7 % (<5.7)
[2025-04-08] MEDS: ATORVASTATIN 20 MG TABLET PO (20:44)
[2025-04-08] MEDS: SACUBITRIL/VALSARTAN 24-26 MG TABLET 1 TAB PO (20:44)
[2025-04-08] MEDS: INSULIN GLARGINE (*BKC) 100 UNITS/ML 12 UNITS SUB-Q (20:45)
[2025-04-09] VITALS (11 sets, daily range): BP systolic 120–156; BP diastolic 80–107; PULSE 81–98; RESP 14–18; TEMP 36.7–36.9; O2SAT 95–98
[2025-04-09] MEDS: SACUBITRIL/VALSARTAN 24-26 MG TABLET 1 TAB PO (09:07)
[2025-04-09] MEDS: INSULIN ASPART (*BKC) 100 UNITS/ML SUB-Q (09:08)
[2025-04-09] MEDS: ENOXAPARIN 40 MG/0.4 ML SYRINGE SUB-Q (09:08)
--- NOTE | 2025-04-09 09:49 | PM.PNCARD ---
Progress Note: A&P Assessment and Plan (1) Cardiomyopathy: Qualifiers: Cardiomyopathy type: unspecified Qualified Code(s): I42.9 - Cardiomyopathy, unspecified Code(s): I42.9 - Cardiomyopathy, unspecified Status: Acute Plan 49-year-old man with recently diagnosed systolic heart failure. Admitted to the hospital with symptomatic hypotension related to volume loss with diarrhea. Metformin has been stopped he seems to be doing better he blood pressure is actually moderately elevated today. I am going to resume his carvedilol and Entresto in that setting. We will wait to resume his spironolactone and Jardiance until he is more stable. That can be resumed as an outpatient. Okay to discharge from my perspective. Mark Tucker MD [facility] Subjective Date/time seen: Date of service: 04/09/25 09:49 Interval history: Follow-up visit in this 49-year-old man with: Recently diagnosed systolic dysfunction with significant cardiomyopathy. Admitted to the hospital with symptomatic hypotension from diarrhea. This appeared to be adverse reaction to institution of metformin therapy. That has now resolved. Patient feels well today is actually hypertensive this morning. Spoke to him about resuming his guideline directed medical therapy as stepwise fashion. He feels well this morning and is hopeful of being discharged. Exam Const: General: comfortable and no acute distress HENMT: Mouth: Yes moist mucous membranes Eyes: Sclera: sclerae normal Neck: Neck: supple and no JVD Resp: Effort & Inspection: normal respiratory effort Auscultation: clear to auscultation bilaterally Cardio: Rate: regular rate Rhythm: regular rhythm GI: GI Palp: Yes Soft to palpation Auscultation: normal bowel sounds Skin: General skin exam: normal color Neuro: Other: Alert and oriented x3 Extrem: General: normal to inspection Objective Data Vital Signs Vital Signs: Vital Signs - 24 hr 04/08/25 10:00 04/08/25 11:51 04/08/25 12:00 Temperature 36.5 C Pulse Rate 87 87 85 Respiratory Rate 20 Blood Pressure 130/93 H Pulse Oximetry 99 Oxygen Delivery 04/08/25 14:00 04/08/25 15:50 04/08/25 16:00 Temperature 36.7 C Pulse Rate 88 90 87 Respiratory Rate 20 Blood Pressure 96/58 L Pulse Oximetry 97 Oxygen Delivery 04/08/25 18:00 04/08/25 20:00 04/08/25 20:00 Temperature Pulse Rate 95 92 Respiratory Rate Blood Pressure Pulse Oximetry Oxygen Delivery Room Air 04/08/25 20:37 04/08/25 20:44 04/08/25 21:45 Temperature 37.3 C Pulse Rate 86 87 Respiratory Rate 16 Blood Pressure 124/66 Pulse Oximetry 100 98 Oxygen Delivery Room Air 04/08/25 22:00 04/08/25 23:24 04/09/25 00:00 Temperature Pulse Rate 85 92 Respiratory Rate Blood Pressure Pulse Oximetry Oxygen Delivery Room Air 04/09/25 00:15 04/09/25 02:00 04/09/25 04:00 Temperature 36.8 C Pulse Rate 98 87 Respiratory Rate 14 Blood Pressure 150/98 H Pulse Oximetry 95 Oxygen Delivery Room Air 04/09/25 04:00 04/09/25 05:18 04/09/25 06:00 Temperature 36.7 C Pulse Rate 91 81 81 Respiratory Rate 16 Blood Pressure 120/80 Pulse Oximetry 98 Oxygen Delivery 04/09/25 08:00 Temperature 36.9 C Pulse Rate 89 Respiratory Rate 18 Blood Pressure 156/106 H Pulse Oximetry 96 Oxygen Delivery Intake/Output Intake/Output: Intake & Output 04/06/25 04/07/25 04/08/25 04/09/25 23:59 23:59 23:59 23:59 Intake Total 1340 790 Balance 1340 790 Meds/Results Medications: Active Medications Generic Name Dose Route Start Last Admin Trade Name Freq PRN Reason Stop Dose Admin Atorvastatin Calcium 20 mg 04/08/25 21:00 04/08/25 20:44 Atorvastatin 20 Mg Tablet PO 20 mg HS SHERRY Administration Carvedilol 6.25 mg 04/08/25 21:00 04/08/25 20:44 Carvedilol 6.25 Mg Tablet PO 6.25 mg On Hold: 04/09/25 02:00 Q12HR SHERRY Administration Carvedilol 6.25 mg 04/09/25 09:50 Carvedilol 6.25 Mg Tablet PO Q12HR SHERRY Dextrose 12.5 gm 04/08/25 10:15 Dextrose 50% 25 Gm/50 Ml Syringe IV PUSH PRN PRN Hypoglycemia Protocol Enoxaparin Sodium 40 mg 04/08/25 13:35 04/09/25 09:08 Enoxaparin 40 Mg/0.4 Ml Syringe SUB-Q 40 mg DAILY SHERRY Administration Glucagon 1 mg 04/08/25 10:15 Glucagon For Inj 1 Mg Vial IM PRN PRN Hypoglycemia Protocol Glucose 15 gm 04/08/25 10:15 Glucose Oral Gel 15 Gm Of Glucse In 37.5 Gm Tube PO PRN PRN Hypoglycemia Protocol Dextrose 1,000 mls @ 100 mls/hr 04/08/25 10:15 Dextrose 5% 1,000 Ml IVPB PRN PRN Hypoglycemia Protocol Insulin Aspart 2 - 5 units 04/08/25 12:00 04/09/25 09:08 Insulin Aspart (*Bkc) 100 Units/Ml SUB-Q Not Given TIDWM SHERRY Protocol Insulin Aspart 1 - 2 units 04/08/25 21:00 04/08/25 20:47 Insulin Aspart (*Bkc) 100 Units/Ml SUB-Q 1 units HS SHERRY Administration Protocol Insulin Aspart 4 units 04/08/25 12:00 04/09/25 09:08 Insulin Aspart (*Bkc) 100 Units/Ml SUB-Q 4 units TIDWM SHERRY Administration Insulin Glargine 12 units 04/08/25 21:00 04/08/25 20:45 Insulin Glargine (*Bkc) 100 Units/Ml SUB-Q 12 units HS SHERRY Administration Sacubitril/Valsartan 1 tab 04/08/25 21:00 04/09/25 09:07 Sacubitril/Valsartan 24-26 Mg Tablet PO 1 tab Q12HR SHERRY Administration Sacubitril/Valsartan 1 tab 04/09/25 09:50 Sacubitril/Valsartan 24-26 Mg Tablet PO Q12HR SHERRY Spironolactone 25 mg 04/08/25 13:35 04/08/25 14:59 Spironolactone 25 Mg Tablet PO 25 mg On Hold: 04/08/25 16:00 QAM SHERRY Administration Radiology Results: ITS Impressions Chest X-Ray 04/08/25 07:03 IMPRESSION: 1: NO ACUTE CARDIOPULMONARY DISEASE. Labs Labs: Laboratory Results - last 24 hr 04/08/25 04/08/25 04/08/25 06:46 09:20 11:21 POC Capillary Glucose 206 H Hemoglobin A1c 12.7 H Troponin I 0.037 H* 04/08/25 04/08/2504/08/25 15:48 20:24 23:44 POC Capillary Glucose 151 H 210 H 201 H Hemoglobin A1c Troponin I 04/09/25 07:37 POC Capillary Glucose 194 H Hemoglobin A1c Troponin I
[2025-04-09 10:26] LABS: Hematocrit 44.1 % (42.0-52.0); Hemoglobin 14.6 g/dL (14.0-18.0); Mean Corpuscular HGB Conc 33.1 g/dl (32-36); Mean Corpuscular Hemoglobin 29.8 pg (26-34); Mean Corpuscular Volume 90.0 fl (80-100); Platelet Count Result 354 k/mm3 (150-375); Red Blood Count 4.90 M/mm3 (4.6-6.20); White Blood Count 6.9 K/mm3 (4.5-10.0)
[2025-04-09 10:50] LABS: Alanine Aminotransferase 60 U/L (6-50); Albumin Level 3.7 g/dL (3.5-5.1); Alkaline Phosphatase 94 U/L (38-126); Anion Gap 7 mmol/L (4-12); Aspartate Amino Transferase 43 U/L (17-59); Bilirubin,Total 0.9 mg/dL (0.2-1.3); Blood Urea Nitrogen 17 mg/dL (9-20); Calcium 8.5 mg/dL (8.4-10.2); Carbon Dioxide 23 mmol/L (22-30); Chloride 104 mmol/L (98-107); Estimated CRCL calculation 120 ml/min; Estimated Glomerular Filt Rate > 60; Glucose 227 mg/dL (65-110); Potassium 4.1 mmol/L (3.4-5.0); Sodium 134 mmol/L (137-145); Total Protein 6.6 g/dL (6.3-8.2)
--- NOTE | 2025-04-09 12:13 | PM.DS ---
DS: Admitting Diagnosis Discharge Date 04/09/2025 Admitting Diagnosis Diarrhea DS: Discharge Diagnosis Discharge Diagnosis (1) Diabetes mellitus: Qualifiers: Diabetes mellitus complication status: with hyperglycemia Diabetes mellitus chcf insulin use: without chcf use Diabetes mellitus type: type 2 Qualified Code(s): E11.65 - Type 2 diabetes mellitus with hyperglycemia Code(s): E11.9 - Type 2 diabetes mellitus without complications Status: Chronic Assessment and Plan: Will discontinue metformin Started on NovoLog 4 units bolus Continue Lantus 12 units Low-dose sliding scale Hypoglycemic protocol (2) Cardiomyopathy: Qualifiers: Cardiomyopathy type: unspecified Qualified Code(s): I42.9 - Cardiomyopathy, unspecified Code(s): I42.9 - Cardiomyopathy, unspecified Status: Acute Assessment and Plan: Hold Carvedilol 6.25 mg PO QD Continue Entresto Hold Spironolactone 25 mg PO QD (3) CHF (congestive heart failure): Qualifiers: Heart failure chronicity: acute Heart failure type: unspecified Qualified Code(s): I50.9 - Heart failure, unspecified Code(s): I50.9 - Heart failure, unspecified Status: Suspected Assessment and Plan: Same as above (4) Hyperlipidemia associated with type 2 diabetes mellitus: Code(s): E11.69 - Type 2 diabetes mellitus with other specified complication; E78.5 - Hyperlipidemia, unspecified Status: Acute Assessment and Plan: Cont Atorvastatin 20 mg PO QD DS: Summary Hospital Course Hospital Course: 49 y/o M with PMH of hypertension, hyperlipidemia, and diabetes presents here with shortness of breath. The patient was recently hospitalized, and during the hospitalization, the patient was examined by Cardiology. Patient's ejection fraction is 30-35%. Patient will be [facility]. Patient advised on medication compliance, alcohol, and smoking cessation. Agrees with the plan. The patient will be started on Entresto and Jardiance, and will continue on Coreg 6.25 mg as per Cardiology. Of note, he underwent CTA chest to rule out aortic dissection and pulmonary embolism, which was negative. The patient was discharged and advised to follow up with Cardiology for a further ischemic workup. Previously, the patient was noncompliant with medication, but after the last discharge, the patient modified his lifestyle and resolved his primary complaint with medication and rescheduled his follow-up appointment. He also did Endocrinology, who increased Lantus from 10 units to 12 units. Patient restarted his Metformin 2nd time and unfortunately had multiple episodes of diarrhea and abdominal pain. He did not make today's appointment with cardiology because he was hospitalized. The patient will eventually require a cardiac catheterization, and he will follow up closely with Cardiology after discharge. Since 2 times he failed Metformin , I will go ahead and start Bolus insulin 4 U along with Lantus 12 U and stop Metformin. On the day of discharge, the patient was seen and examined. Vital signs were stable. Physical exam were stable and labs were reviewed at length. Discharge instructions, medications, and follow-up appointments were discussed with the patient at length and all day questions were answered. ER warnings were given. Status at Discharge Cognitive/behavioral status at discharge: Stable Time Spent with Patient Time attestation: Total time spent providing and/or coordinating discharge services: 45 minute Exam Narrative: APPEARANCE: No acute distress, nontoxic, resting in bed EYES: EOMI HEENT: Normocephalic, atraumatic, OMM RESPIRATORY: No respiratory distress Clear to auscultation bilaterally with no rhonchi wheezing or rales. CARDIOVASCULAR: Life vest in place. Regular rate and rhythm without murmurs rubs or gallops. ABDOMINAL: Soft, nontender, nondistended, no rebound or guarding MUSCULOSKELETAl: Moves all extremities. No clubbing, cyanosis or edema. NEURO: Awake and alert. Following commands, speech normal, no focal deficits SKIN:: Warm, dry. No rashes lesions or abrasions PSYCHIATRIC: Normal affect/mood, Const: Other: Well-developed well-nourished white male appearing a bit older than his stated age otherwise comfortable in no distress at this time Eyes: Sclera: sclerae normal Pupils: Equal, round and reactive pupils present Neck: Neck: supple and no JVD Resp: Effort & Inspection: normal respiratory effort Auscultation: clear to auscultation bilaterally Other: No rales rhonchi or wheezing Cardio: Rate: regular rate Rhythm: regular rhythm Other: Paradoxically split S2, no murmur GI: Auscultation: normal bowel sounds Skin: General skin exam: normal color Neuro: Cranial nerves: Yes Equal, round and reactive pupils present Other: Alert and oriented x3 Extrem: General: normal to inspection DS: Data Data Completed and Pending Labs on day of discharge: Labs from last 24 hours 04/09/25 04/09/25 04/09/25 11:38 10:20 07:37 WBC 6.9 RBC 4.90 Hgb 14.6 Hct 44.1 MCV 90.0 MCH 29.8 MCHC 33.1 RDW 13.1 Plt Count 354 MPV 9.6 Sodium 134 L Potassium 4.1 Chloride 104 Carbon Dioxide 23 Anion Gap 7 BUN 17 Creatinine 0.67 L Estim Creat Clear Calc 120 Estimated GFR > 60 Glucose 227 H POC Capillary Glucose 192 H 194 H Hemoglobin A1c Calcium 8.5 Total Bilirubin 0.9 AST 43 ALT 60 H Alkaline Phosphatase 94 Total Protein 6.6 Albumin 3.7 04/08/25 04/08/25 04/08/25 23:44 20:24 15:48 WBC RBC Hgb Hct MCV MCH MCHC RDW Plt Count MPV Sodium Potassium Chloride Carbon Dioxide Anion Gap BUN Creatinine Estim Creat Clear Calc Estimated GFR Glucose POC Capillary Glucose 201 H 210 H 151 H Hemoglobin A1c Calcium Total Bilirubin AST ALT Alkaline Phosphatase Total Protein Albumin 04/08/25 06:46 WBC RBC Hgb Hct MCV MCH MCHC RDW Plt Count MPV Sodium Potassium Chloride Carbon Dioxide Anion Gap BUN Creatinine Estim Creat Clear Calc Estimated GFR Glucose POC Capillary Glucose Hemoglobin A1c 12.7 H Calcium Total Bilirubin AST ALT Alkaline Phosphatase Total Protein Albumin Imaging Radiologist's impression: ITS Impressions Chest X-Ray 04/08/25 07:03 IMPRESSION: 1: NO ACUTE CARDIOPULMONARY DISEASE. Discharge Plan Discharge Attending physician on discharge: Ian Lopez Consulting providers: Mark Tucker Discharging Clinician: Ian Lopez Anticipated Discharge Date/Time: 04/09/25 12:29 Patient Disposition: Home Activity: as tolerated Diet: heart healthy and diabetic Discharge Instructions: Started on NovoLog 4 units during mealtime and continue Lantus to units at nighttime. Closely follow-up with cardiology and endocrinology for further recommendation. Measure your blood pressure before taking medications. If any concerns call your PCP or seek immediate medical care Check blood pressure 1 to 2 times a day. Record and bring into your doctor for review. Call your doctor if your blood pressure is greater than 180/110 or less than 90/45. Walk with cane or other assist device. Take precautions to avoid falls. Rise slowly from a lying or sitting position. Pause before standing or walking. Contact your doctor or call 911 and come to the Emergency Room if you have any type of trauma, lightheadedness with standing or other worrisome symptoms. Avoid NSAIDs (ibuprofen, naproxen, Aleve). Tylenol is safe to take. Follow-up with your primary care provider in 1-2 weeks. Please call for appointment. Follow-up with Cardiology in 2-4 weeks. Please call for an appointment. Thank you for using [facility] for your health care needs. Patient Instructions: Antibiotic Form, Insulin Lispro (By injection), Dehydration (ED), Hypotension (DC) Patient Language: Malagasy Stand Alone Forms: General Discharge Information Follow-up/Referrals: Mark Tucker MD [Physician, Cardiology] PHYSICIAN NOT ON STAFF,NONSTAFF [Non-Staff] Discharge Medications: New insulin aspart U-100 [Novolog FlexPen U-100 Insulin] 100 unit/mL (3 mL) insulin pen 4 unit subcut TID Qty: 15 1RF (DME) blood-glucose meter [OneTouch Verio Flex meter] Misc Qty: 1 0RF Rx Instructions: May substitute to in-stock meter and/or covered by insurance. Use As Directed (DME) OneTouch Verio test strips Strip Qty: 1 0RF Rx Instructions: May substitute to in-stock and/or covered by insurance strips. Use As Directed (DME) pen needle, diabetic 32 gauge x 5/32 Needle Qty: 1 0RF Rx Instructions: As Directed (DME) lancets [OneTouch Delica Plus Lancet] 30 gauge misc Qty: 1 0RF Rx Instructions: May substitute to in-stock and/or covered by insurance lancets. Use As Directed (DME) insulin syringe,safety needle 0.5 mL 31 gauge x 5/16 Syringe Qty: 1 0RF Rx Instructions: As Directed Continued carvedilol [Coreg] 6.25 mg Tablet 6.25 mg PO Q12HR Qty: 30 0RF Jardiance 10 mg Tablet 10 mg PO DAILY Qty: 30 0RF sacubitril-valsartan [Entresto] 24-26 mg Tablet 1 tablet PO Q12HR Qty: 60 0RF spironolactone 25 mg Tablet 25 mg PO QAM Qty: 30 0RF (DME) blood-glucose meter [OneTouch Verio Flex meter] Misc Qty: 1 0RF Rx Instructions: May substitute to in-stock meter and/or covered by insurance. Use As Directed (DME) OneTouch Verio test strips Strip Qty: 1 0RF Rx Instructions: May substitute to in-stock and/or covered by insurance strips. Use As Directed (DME) pen needle, diabetic 32 gauge x 5/32 Needle Qty: 1 0RF Rx Instructions: As Directed (DME) lancets [OneTouch Delica Plus Lancet] 30 gauge misc Qty: 1 0RF Rx Instructions: May substitute to in-stock and/or covered by insurance lancets. Use As Directed (DME) insulin syringe,safety needle 0.5 mL 31 gauge x 5/16 Syringe Qty: 1 0RF Rx Instructions: As Directed levothyroxine 50 mcg Capsule 50 mcg PO DAILY atorvastatin 20 mg Tablet 20 mg PO DAILY Qty: 30 0RF Januvia 100 mg tablet 100 mg PO DAILY insulin glargine [Lantus U-100 Insulin] 100 unit/mL Solution 12 unit subcut HS Discontinued metformin 500 mg Tablet 1,000 mg PO BID Qty: 60 0RF tramadol 50 mg tablet 50 mg PO Q6H PRN (Reason: pain) Qty: 10 0RF Date of admission: 04/08/25 08:14 Primary Care Provider: Trixie,Kelley SEGURA Admitting Provider: Ian Lopez Attending physician on admission: Ian Lopez Condition: Stable
== END 2025-04-09 13:06 | disposition home or self-care (01) ==
LOC: ANHED 07:17 → ANHIMU 08:47
PROVIDERS: Emergency Medicine; Admitting Provider General Practice; Emergency Provider Student in an Organized Health Care Education/Training Program; Visit Provider General Practice
DX: E11.65 Type 2 diabetes mellitus with hyperglycemia (principal); T38.3X5A Adverse effect of insulin and oral hypoglycemic [antidiabetic] drugs, initial encounter; K52.1 Toxic gastroenteritis and colitis; I95.2 Hypotension due to drugs; E86.9 Volume depletion, unspecified; I42.9 Cardiomyopathy, unspecified; Z79.4 Long term (current) use of insulin; Z79.84 Long term (current) use of oral hypoglycemic drugs; E87.6 Hypokalemia; E78.5 Hyperlipidemia, unspecified; I10 Essential (primary) hypertension; F12.90 Cannabis use, unspecified, uncomplicated; Z87.891 Personal history of nicotine dependence; Z79.891 Long term (current) use of opiate analgesic; Z83.3 Family history of diabetes mellitus; Z82.69 Family history of other diseases of the musculoskeletal system and connective tissue
CPT/HCPCS: 36415; 71045; 80053; 81001; 82948; 83036; 83605; 83690; 83735; 83880; 84484; 85025; 85027; 85610; 85730; 93005; 96360; 96372; 99285; A9270; G0378; G0379; J1650; J1815; J7040

== ENCOUNTER 2025-05-26 03:56 | Day surgery (SDC) | payer OTHER, SELFPAY ==
[2025-05-23 13:01] VITALS: BMI 29.7
[2025-05-26] VITALS (16 sets, daily range): BP systolic 132–157; BP diastolic 93–107; PULSE 69–85; RESP 14–18; TEMP 36.4; O2SAT 94–100; BMI 28.6
--- OUTSIDE RECORDS SUMMARY | 2025-05-26 03:59 | XMS_ITS | Encounter Summary ---
Author Organization [facility] Healthcare Address [address] [place] [id number] Care Team Providers Care Lap Regulator Name Role Phone Kelley Marcum MD Primary Care Provider [phone] Encounter Details Date Type Department Care Team (Late st Contact Info) Description 05/02/2025 Results Follow-Up [facility] Primary Care at [place] [id number] [place] [address] Kelley Marcum MD [address] [facility] [address] [place] [address] Hepatitis B surface antibody (immune status) Blood, Hepatitis B Surface Antigen Blood, Hepatitis C antibody Blood, Hepatitis B core antibody, total Blood Social History Tobacco Use Types Packs/Day Years Used Date Smoking Tobacco: Former Vaping Smokeless Tobacco: Never PHQ-2 Answer Date Recorded PHQ-2 Total Score (If total score is 3 or more points, staff should administer the PHQ-9) 6 05/01/2025 PHQ-9 Answer Date Recorded PHQ-9 Total Score 15 05/01/2025 Sex and Gender Information Value Date Recorded Sex Assigned at Not on file Legal Sex Male 8:59 AM CDT Gender Identity Not on file Sexual Orientation Not on file documented as of this encounter Miscellaneous Notes * Result Encounter Note - Kelley Marcum MD - 05/02/2025 12:43 PM CDT Renuka Lindsay, Your results came back with no significant findings. No changes to be made at this time. Please call the office if you have any questions. Thank you! Kelley Marcum MD documented in this encounter Plan of Treatment Not on file documented as of this encounter Visit Diagnoses Not on filedocumented in this encounter Care Teams Lap Regulator Relationship Specialty Start Date End Date Kelley Marcum MD [address] [facility] [address] [place] [address] PCP - General Family Medicine 05/01/25 documented as of this encounter
--- OUTSIDE RECORDS SUMMARY | 2025-05-26 03:59 | XMS_ITS | Clinical Summary ---
Author Organization [facility] [address] [place] [phone] Care Team Providers Care Residential Real Estate Agent Name Role Phone Kelley Marcum MD Primary Care Provider [phone] Allergies No known active allergies Medications insulin glargine (LANTUS) 100 unit/mL (3 mL) pen for injectionIndica tions:Type 2 diabetes mellitus with hyperglycemia, without long-term current use of insulin (HCC) Inject 16-20 Units under the skin daily 6 mL 5 05/20/20 24 Active pen needle, diabetic (BD Ultra-Fine Bindu Pen Needle) 32 gauge x /32 needleIndicatio ns:Type 2 diabetes mellitus with hyperglycemia, without long-term current use of insulin (HCC) One each daily 30 each 11 05/20/20 24 Active OneTouch Delica Plus Lancet 30 gauge misc as directed 03/28/20 25 Active levothyroxine sodium (TIROSINT) 50 mcg capsule Take 1 capsule (50 mcg total) by mouth 09/01/19 22 Active metFORMIN (GLUCOPHAGE) 500 mg tablet Take 2 tablets (1,000 mg total) by mouth 2 (two) times a day 03/28/20 25 Active Januvia 100 mg tabletIndicatio ns:Type 2 diabetes mellitus with hyperglycemia, without long-term current use of insulin (HCC) Take 1 tablet (100 mg total) by mouth daily 90 tablet 3 04/03/20 25 026 Active traMADoL (ULTRAM) 50 mg tablet Take 1 tablet (50 mg total) by mouth every 6 (six) hours Active atorvastatin (LIPITOR) 20 mg tabletIndicatio ns:Hyperlipidem ia associated with type 2 diabetes mellitus (HCC) Take 1 tablet (20 mg total) by mouth nightly 30 tablet 04/15/20 25 Active sacubitriL-vals ezra (Entresto) 24-26 mg tabletIndicatio ns:Cardiomyopat hy, unspecified type (HCC) Take 1 tablet by mouth every 12 (twelve) hours 180 tablet 3 04/29/20 25 Active spironolactone (ALDACTONE) 25 mg tabletIndicatio ns:Cardiomyopat hy, unspecified type (HCC) Take 1 tablet (25 mg total) by mouth every morning 90 tablet 3 04/29/20 25 Active carvediloL (COREG) 12.5 mg tabletIndicatio ns:Cardiomyopat hy, unspecified type (HCC) Take 1 tablet (12.5 mg total) by mouth 2 (two) times a day with meals 180 tablet 3 04/29/20 25 026 Active empagliflozin (JARDIANCE) 25 mg tabletIndicatio ns:Type 2 diabetes mellitus with hyperglycemia, without long-term current use of insulin (HCC) Take 1 tablet (25 mg total) by mouth daily DX: E11.65 90 tablet 04/29/20 25 Active sacubitriL-vals ezra (ENTRESTO) 49-51 mg tabletIndicatio ns:chronic heart failure Take 1 tablet by mouth 2 (two) times a day 60 tablet 11 05/08/20 25 025 Active amLODIPine (NORVASC) 10 mg tablet 04/11/20 24 025 Discontinued(No longer taking - Do not display on AVS) empagliflozin (JARDIANCE) 25 mg tabletIndicatio ns:Type 2 diabetes mellitus with hyperglycemia, without long-term current use of insulin (HCC) Take 1 tablet (25 mg total) by mouth daily 30 tablet 5 05/20/20 24 025 Discontinued(Du plicate order) empagliflozin (JARDIANCE) 10 mg tablet 1 tablet (10 mg total) daily 025 Discontinued(Du plicate order) Entresto 24-26 mg tablet Take 1 tablet by mouth every 12 (twelve) hours 60 tablet 04/15/20 25 025 Discontinued(Re order) carvediloL (COREG) 6.25 mg tablet Take 1 tablet (6.25 mg total) by mouth every 12 (twelve) hours 60 tablet 04/15/20 25 025 Discontinued spironolactone (ALDACTONE) 25 mg tablet Take 1 tablet (25 mg total) by mouth every morning 30 tablet 04/15/20 25 025 Discontinued(Re order) empagliflozin (JARDIANCE) 10 mg tablet 1 tablet (10 mg total) daily 025 Discontinued(Du plicate order) Active Problems Problem Noted Date Diagnosed Date Acute hyponatremia 05/01/2025 Cardiomyopathy 05/01/2025 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 No family history of colon cancer. No record of colonoscopy. Differential diagnosis incls. IBS, malabsorption such as celiac disease vs inflammation disease. Plan: GI referral due to nocturnal diarrheal, and weight loss Recommend avoiding, gluten free, caffeine, alcohol, high fat. Encouraged high fiber food to help bulk stool. Orders: Ambulatory referral to Gastroenterology; Future CBC without differential; Future Elevated troponin 05/01/2025 Fluid overload 05/01/2025 Hypertensive urgency 05/01/2025 Hypokalemia 05/01/2025 Person under investigation for COVID-19 05/01/20 25 Posttraumatic stress disorder 06/16/2024 Type 2 diabetes mellitus wit h hyperglycemia, [...] 10 units every morning DM eye exam: [facility] . Letter sent to get copy of report. Will update labs. Verified that he uses [facility]. Aware to check results/results letter in [facility]. Will contact by phone if needed. Discussed with Neftali Mcfarlandhens: Strive for regular exercise (30min most days) [...] associated with diabetes 05/20/2024 Assessment & Plan (05/01/2025 5:58 PM CDT): Chronic, unstable BP 148/104 Last A1c 12.7 on 03/2025. Previously on Metformin 500 mg twice daily but discontinued too hypotension from diarrhea. Now managed on insulin: Lantus 14 units at bedtime and 4 units lispro at mealtime. Blood sugar range around 140s. Encourage to keep a blood sugar log for the next visit. Continue Lantus 14 units @ bedtime and mealtime insulin regimen. Metformin discontinued. Orders: Hepatitis B surface antibody (immune status) Blood; Future Assessment & Plan (04/03/2025 1:39 PM CDT): Chronic problem. Not at goal on current losartan 100mg daily, metoprolol XL 100mg daily, amlodipine 10mg daily, HCTZ 25mg daily Will update labs. Verified that he uses my[facility]. Aware to check results/results letter in [facility]. Will contact by phone if needed. Assessment [...] mychart. Aware to check results/results letter in [email or web address]. Will contact by phone if needed. Assessment & Plan (05/20/2024 1:02 PM CDT): We will start patient on statin therapy Class 1 obesity due to exces s calories with serious comorbidity and body mass index (BMI) of 31.0 to 31.9 in adult 05/20/2024 Assessment & Plan (05/20/2024 1:01 PM CDT): Counseled on diet and exercise Cough 04/10/2024 Chronic idiopathic constipation 12/27/2023 Constipation 12/27/2023 Low vitamin D level 05/04/2023 Type 2 diabetes mellitus 04/25/2023 Obese 04/25/2023 Hyperlipidemia 04/25/2023 Essential hypertension 04/25/2023 Encounters Date Type Department Care Team Description 05/15/2025 8:55 AM CDT Lab [address] [address] Essential hypertension 05/15/2025 Results Follow-Up [facility] Cardiology [address] [place] [address] [place] [phone] Katie Larson NP Basic metabolic panel, eGFR 05/13/2025 Telephone [facility] Cardiology [address] [place] [address] [place] [phone] Katie Larson NP [facility] auth 05/13/2025 Orders Only [facility] Cardiology [address] [place] [address] [place] [phone] Katie Larson NP Essential hypertension (Primary Dx) 05/08/2025 Telephone [facility] Cardiology [address] [place] [address] [place] [phone] Katie Larson NP 05/06/2025 Orders Only [facility] Cardiology [address] [place] [address] [place] [phone] Mark Tucker MD 05/02/2025 8:55 AM CDT Lab [address] [address] Diarrhea due to drug; Hypertension associated with diabetes (HCC); Need for hepatitis B screening test; Need for hepatitis C screening test 05/02/2025 Results Follow-Up [facility] Primary Care at [address] [phone] Kelley Marcum MD Hepatitis B surface antibody (immune status) Blood, Hepatitis B Surface Antigen Blood, Hepatitis C antibody Blood, Hepatitis B core antibody, total Blood 05/01/2025 8:00 AM CDT Office Visit [facility] Medical [facility] Primary Care at [address] [phone] Kelley Marcum MD Hypertension associated with diabetes (HCC) (Primary Dx); Diarrhea due to drug; Need for hepatitis C screening test; Need for hepatitis B screening test 04/29/2025 2:30 PM CDT Office Visit [facility] Cardiology [address] [place] [address] [place] [phone] Katie Larson NP Cardiomyopathy, unspecified type (HCC) (Primary Dx); 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); LBBB (left bundle branch block); Nonrheumatic mitral valve regurgitation; Type 2 diabetes mellitus with hyperglycemia, without long-term current use of insulin (HCC); Hospital discharge follow-up 04/29/2025 Telephone [facility] Cardiology [address] [place] [address] [place] [phone] Katie Larson NP 04/29/2025 Telephone [facility] Diabetes and Endocrinology [address] [place] [phone] Enid Tyler NP Refill request (Jardiance) 04/16/2025 Orders Only [facility] Cardiology [address] [place] [address] [place] [phone] Melissa Rodriguez NP 04/15/2025 Telephone [facility] Cardiology [address] [place] [address] [place] [phone] Katie Larson NP 04/09/2025 Orders Only [facility] Cardiology [address] [place] [address] [address] [phone] Melissa Rodriguez NP 04/08/2025 Telephone [facility] Cardiology [address] [place] [address] [place] [phone] Katie Larson NP Not a no-show on 04/08/25 04/08/2025 Orders Only [facility] Diabetes and Endocrinology [address] [place] [phone] Alison Boston MD 04/07/2025 Telephone [facility] Diabetes [facility] Endocr[facility]ology [address] [place] [phone] Enid Tyler NP [facility] Inpatient records with labs 04/04/2025 Results Follow-Up [facility] Diabetes and Endocrinology [address] [place] [phone] Enid Tyler NP Thyroid Function [place], C-peptide, Lipid panel, Additional followed-up results: 3 04/03/2025 2:25 PM CDT Lab [address] [address] Type 2 diabetes mellitus with hyperglycemia, without long-term current use of insulin (HCC); Hyperlipidemia associated with type 2 diabetes mellitus (HCC); Hypertension associated with diabetes (HCC) 04/03/2025 1:30 PM CDT Office Visit [facility] Diabetes and Endocrinology [address] [place] [phone] Enid Tyler NP Type 2 diabetes mellitus with hyperglycemia, without long-term current use of insulin (HCC) (Primary Dx); Hypertension associated with diabetes (HCC); Hyperlipidemia associated with type 2 diabetes mellitus (HCC); Diabetic neuropathy associated with type 2 diabetes mellitus (HCC) 04/03/2025 Telephone [facility] Primary Care at [address] [phone] Kelley Marcum MD 04/01/2025 Telephone [facility] Cardiology [address] [facility] [address] [place] [phone] Katie Larson NP 03/28/2025 Orders Only [facility] Cardiology [address] [facility] [address] [place] [phone] Neftali Hairston MD 03/25/2025 Orders Only [facility] Information Management [address] [place] [phone] Scanning, Provider from Last 3 Months Surgical History Surgery Date Site/Laterality Comments NO PAST SURGERIES Medical History Medical History Date Comments Diabetes Hypertension CHF (congestive heart failure) (HCC) Chest pain Family History Medical History Relation Name Comments No Known Problems Father Diabetes Mother Lupus Mother Relation Name Status Comments Father Mother Social History Tobacco Use Types Packs/Day Years Used Date Smoking Tobacco: Former Vaping Smokeless Tobacco: Never Tobacco Cessation:Counseling Given: Not Answered PHQ-2 Answer Date Recorded PHQ-2 Total Score [...] Sign Reading Time Taken Comments Blood Pressure 148/104 05/01/2025 7:55 AM CDT Pulse 94 05/01/2025 7:55 AM CDT Temperature 36.6 C (97.9 F) 05/01/2025 7:55 AM CDT Respiratory Rate 16 05/01/2025 7:55 AM CDT Oxygen Saturation 98% 05/01/2025 7:55 AM CDT Inhaled Oxygen Concentration - - Weight 94 kg (207 lb 3.2 oz) 05/01/2025 7:55 AM CDT Height 177.8 cm (5' 10) 05/01/2025 7:55 AM CDT Body Mass Index 29.73 05/01/2025 7:55 AM CDT Plan of Treatment Health Maintenance Due Date Last Done Comments Colon Cancer Screening-Colonoscopy 1976 Regular Well Visit/Exam 18-64 1994 DTaP/Tdap/Td Vaccine (1 - Tdap) 07/31/2025 Postponed from 09/04 (Patient declined, but will receive in the future) Hemoglobin A1C 10/04/2025 04/03/2025, 05/20/2024 Influenza Vaccine (#1) 2026 Postp oned from 04/14/2025 (Patient declined, but will receive in the future) Dilated Eye Exam 03/14/2026 03/14/2025 Albumin Creatinine Ratio, Urine 04/03/2026 04/03/2025 Foot Exam 04/03/2026 04/03/2025, 05/20/2024 Lipid Panel 04/03/2026 04/03/2025 Pneumococcal vaccine <65 (1 of 2 - PCV) 04/16/2026 Postponed from 09/04 (Patient declined, but will receive in the future) Depression Screening 05/01/2026 05/01/2025 eGFR 05/15/2026 05/15/2025, 04/03/2025 Hepatitis B Screening Completed 05/02/2025 Hepatitis C Screening Completed 05/02/2025 Procedures Procedure Name Priority Date/Time Associated Diagnosis Comments EGFR Routine 05/15/2025 8:59 AM CDT Essential hypertension BASIC METABOLIC PANEL Routine 05/15/2025 8:59 AM CDT Essential hypertension HEPATITIS C ANTIBODY Routine 05/02/2025 9:00 AM CDT Need for hepatitis C screening test HEPATITIS B SURFACE ANTIGEN Routine 05/02/2025 9:00 AM CDT Need for hepatitis B screening test HEPATITIS B CORE ANTIBODY, TOTAL Routine 05/02/2025 9:00 AM CDT Need for hepatitis B screening test HEPATITIS B SURFACE ANTIBODY (IMMUNE STATUS) Routine 05/02/2025 9:00 AM CDT Hypertension associated with diabetes (HCC) CARDIOLOGY DOCUMENT SCAN Routine 04/09/2025 2:17 PM CDT CARDIOLOGY DOCUMENT SCAN Routine 04/08/2025 5:25 PM CDT EGFR Routine 04/03/2025 2:30 PM CDT Type [...] of insulin (HCC) CARDIOLOGY DOCUMENT SCAN Routine 03/27/2025 2:42 PM CDT CARDIOLOGY DOCUMENT SCAN Routine 03/26/2025 7:49 AM CDT CARDIOLOGY DOCUMENT SCAN 03/25/2025 DIABETES EYE EXAM Routine 03/14/2025 7:28 AM CDT from Last 3 Months Results * eGFR (05/15/2025 8:59 AM CDT) eGFR >90 >=60 mL/min/1. 73 m2 Comment: [...] interpretive data was last reviewed 2021. Blood 05/15/2025 8:59 AM CDT 05/15/2025 10:30 AM CDT Katie Larson ARTIFICIAL SNOW MAKING MACHINE OPERATOR LAB BLOOD ORDERABLES Clarice l Result Performing Organization Address [facility] Co de Phone Number [address] [place] [address] * Basic metabolic panel (05/15/2025 8:59 AM CDT) Pathologist [facility] Sodium 140 135 - 145 mmol/L Potassium, pl 4.1 3.3 - 4.9 mmol/L [facility] Chloride 104 97 - 110 mmol/L [facility] CO2 25 22 - 32 mmol/L [facility] Anion gap 11 2 - 15 mmol/L [facility] BUN 16 6 - 25 mg/dL [facility] Creatinine 0.86 0.80 - 1.30 mg/dL [facility] Glucose 182 70 - 199 mg/dL [facility] Comment: Interpretive Data Fasting glucose >/= [...] 2022. Calcium 9.0 8.5 - 10.3 mg/dL [facility] Blood 05/15/2025 8:59 AM CDT 05/15/2025 10:30 AM CDT Katie Larson ARTIFICIAL SNOW MAKING MACHINE OPERATOR LAB BLOOD ORDERABLES Clarice l Result Performing Organization Address [facility]/ZIP Co de Phone Number [facility] [address] [facility] [place] [address] * Hepatitis C antibody Blood (05/02/2025 9:00 AM CDT) Pathologist [facility] Hep C Ab Nonreactive Nonreactive Comment: Antibodies to HCV not detected. Does NOT exclude the possibility of recent exposure to HCV. Current interpretive data was last revised on 22 Interpretive Data Nonreactive: Antibodies to HCV not detected. Does NOT exclude the possibility of recent exposure to HCV. Equivocal: Equivocal for HCV antibodies. Supplemental molecular testing will be automatically performed to determine infection status in accordance with current CDC screening recommendations. Reactive: Positive for HCV antibodies. This may represent current or past HCV infection. Supplemental molecular testing will be automatically performed to determine current infection status in accordance with current CDC screening recommendations. Interpretive data was last revised on 2019. Blood 05/02/2025 9:00 AM CDT 05/02/2025 10:40 AM CDT Kelley Marcum MD LAB MICROBIOLOGY - [employer] L ORDERABLES Final Result Performing Organization Address [facility] Co de Phone Number [place] [phone] [facility] [place] [address] * Hepatitis B core antibody, total Blood (05/02/2025 9:00 AM CDT) Pathologist [facility] Hep B core IgG/IgM Nonreactive Nonreactive Comment:Testing performed by : [facility], [address] [place] [address] Blood 05/02/2025 9:00 AM CDT 05/02/2025 1:44 PM CDT Kelley Marcum MD LAB MICROBIOLOGY - [employer] ORDERABLES Final Result Performing Organization Address City/State/[facility] Co de Phone Number [address] [place] [address] * Hepatitis B surface antibody (immune status) Blood (05/02/2025 9:00 AM CDT) Pathologist [facility] HBsAb (immune status) Nonreactive Comment: Interpretive Data Nonreactive: This result is consistent with a lack of immunity to Hepatitis B Virus when used in the setting of routine screening. Equivocal: The immune status of the individual should be further assessed, if appropriate, after consideration of clinical status, risk factors, and additional diagnostic information. Reactive: This result is consistent with immunity to Hepatitis B Virus when used in the setting of routine screening. Current interpretive data was last revised on 19. Blood 05/02/2025 9:00 AM CDT 05/02/2025 10:40 AM CDT Kelley Marcum MD LAB MICROBIOLOGY - GENERA L ORDERABLES Final Result Performing Organization Address [facility] Co de Phone Number [address] [place] [address] * Hepatitis B Surface Antigen Blood (05/02/2025 9:00 AM CDT) Pathologist [facility] HepBsAg Nonreactive Nonreactive Blood 05/02/2025 9:00 AM CDT 05/02/2025 10:40 AM CDT Kelley Marcum MD LAB MICROBIOLOGY - GENERA L ORDERABLES Final Result Performing Organization Address [facility] de Phone Number [address] [place] [address] * Cardiology Document Scan (04/09/2025 2:17 PM CDT) Anatomical Region Laterality Modality Other Mark Tucker MD CV CARDIAC SERVICES PROC EDURES Final Result * Cardiology Document Scan (04/08/2025 5:25 PM CDT) Anatomical Region Laterality Modality Other us Melissa Rodriguez NP CV CARDIAC SERVICES PROCEDUR ES Final Result * eGFR (04/03/2025 2:30 PM CDT) Pathologist [facility] eGFR >90 >=60 mL/min/1. 73 m2 Comment: [...] CDT 04/03/2025 6:10 PM CDT Enid Tyler ARTIFICIAL SNOW MAKING MACHINE OPERATOR LAB BLOOD ORDERABLES Clarice l Result Performing Organization Address [facility] Co de Phone Number [address] [place] [address] * Thyroid Function [place] (04/03/2025 2:30 PM CDT) [facility] TSH 2.62 0.30 - 4.20 mcIUnit/mL Blood 04/03/2025 2:30 PM CDT 04/03/2025 6:10 PM CDT Enid Tyler LAB BLOOD ORDERABLES Clarice l Result Performing Organization Address [facility] Co de Phone Number [address] [address] * (ABNORMAL) Albumin Creatinine Ratio, Urine (04/03/2025 2:30 PM CDT) Pathologist [facility] Albumin Ur 19.8 mg/L Comment: Interpretive Data No reference range established. Current interpretive data was last revised 2018. Creatinine Ur 44.9 mg/dL [facility] Comment: Interpretive Data No reference range established. Current interpretive data was last revised 2018. Albumin Creatinine Ratio, Ur 44(H) 1 - 29 mg/g [facility] Urine 04/03/2025 2:30 PM CDT 04/03/2025 6:10 PM CDT Enid Tyler ARTIFICIAL SNOW MAKING MACHINE OPERATOR LAB URINE ORDERABLES Clarice l Result Performing Organization Address [facility] Co de Phone Number [address] [address] * C-peptide (04/03/2025 2:30 PM CDT) C-peptide 3.7 1.1 - 4.4 ng/mL Blood 04/03/2025 2:30 PM CDT 04/03/2025 6:10 PM CDT us Enid Tyler ARTIFICIAL SNOW MAKING MACHINE OPERATOR LAB BLOOD ORDERABLES Clarice l Result Performing Organization Address [facility] de Phone Number [address] [address] * (ABNORMAL) Lipid panel (04/03/2025 2:30 PM CDT) Pathologist [facility] Cholesterol 161 30 - 199 mg/dL Comment: [...] revised on 2018. Triglycerides 169(H) <=149 mg/dL [facility] Comment: Interpretive Data Ages < or [...] on 2018. HDL 35(L) >=40 mg/dL [facility] Comment: Interpretive Data Ages < or = [...] 2018. LDL, calculated 96 <=129 mg/dL [facility] Comment: Interpretive Data Ages < or = [...] on 2024. Non-HDL Cholesterol 126 mg/dL [facility] Comment: Interpretive Data Ages < or = [...] last revised on 2018. Chol/HDL ratio 5 [facility] Blood 04/03/2025 2:30 PM CDT 04/03/2025 6:10 PM CDT us Enid Tyler NP LAB BLOOD ORDERABLES Clarice tineo Result [facility] [address] [facility] [place] [address] * (ABNORMAL) Comprehensive metabolic panel (04/03/2025 2:30 PM CDT) Sodium 137 135 - 145 mmol/L Potassium, pl 4.5 3.3 - 4.9 mmol/L [facility] Chloride 101 97 - 110 mmol/L [facility] CO2 25 22 - 32 mmol/L [facility] Anion gap 11 2 - 15 mmol/L [facility] BUN 14 6 - 25 mg/dL [facility] Creatinine 0.78(L) 0.80 - 1.30 mg/dL [facility] Glucose 307(H) 70 - 199 mg/dL [facility] Comment: Interpretive Data Fasting glucose >/= [...] classification and Diagnosis of Diabetes Diabetes Care 202; 46: S19-S40. Current interpretive data was last revised 2022. Calcium 9.0 8.5 - 10.3 mg/dL [facility] Bilirubin, total 0.4 0.1 - 1.2 mg/dL [facility] Protein, pl 6.9 6.5 - 8.5 g/dL [facility] Albumin 4.0 3.5 - 5.0 g/dL [facility] Alk phos 101 40 - 130 Units/L [facility] ALT 35 7 - 55 Units/L [facility] AST 32 10 - 50 Units/L [facility] Blood 04/03/2025 2:30 PM CDT 04/03/2025 6:10 PM CDT us Enid Tyler NP LAB BLOOD ORDERABLES Clarice l Result [facility] [address] [facility] [place] [address] * (ABNORMAL) POCT hemoglobin A1c (04/03/2025 1:24 [...] Hrs Blood 04/03/2025 1:24 PM CDT us Enid Tyler NP POINT OF CARE TEST ORDERA BLES Final Result * Cardiology Document Scan (03/27/2025 2:42 PM CDT) Anatomical Region Laterality Modality Other us Melissa Rodriguez NP [facility] CARDIAC SERVICES PROCEDUR ES Final Result * Cardiology Document Scan (03/26/2025 7:49 AM CDT) Anatomical Region Laterality Modality Other us Neftali Hairston MD CV CARDIAC SERVICES PROCE DURES Final Result * Cardiology Document Scan (03/25/2025) Anatomical Region Laterality Modality Other us Provider Scanning CV CARDIAC SERVICES PROCEDURES Final Result * (ABNORMAL) DIABETES EYE EXAM (03/14/2025 7:28 AM CDT) Historical Provider HEALTH MAINTENANCE Final Result from Last 3 Months Insurance [facility] Care Teams Residential Real Estate Agent Relationship Specialty Start Date End Date Kelley Marcum MD [address] [place] [address] PCP - General Family Medicine 05/01/25
--- OUTSIDE RECORDS SUMMARY | 2025-05-26 03:59 | XMS_ITS | Encounter Summary ---
Author Organization [facility] Healthcare Address [address] [place] [address] Care Team Providers Care Retort Fireman Name Role Phone Kelley Marcum MD Primary Care Provider [phone] Reason for Visit * Reason Onset Date Comments [facility] auth 05/13/2025 Encounter Details Date Type Department Care Team (Late st Contact Info) Description 05/13/2025 Telephone [facility] Medical Group Cardiology [address] [place] [address] Katie Larson NP [address] [place], [place] [id number] [facility] auth Social History Tobacco Use Types Packs/Day Years [...] encounter Miscellaneous Notes * Telephone Encounter - Latanya Perry RN - 05/16/2025 12:15 PM CDT Forwarded to Radha to check on PA status * Telephone Encounter - Omaira Nolasco - 05/16/2025 11:22 AM CDT Bud from [facility] states that the pt is scheduled for a LHC and needs a prior auth. CPT Code 59173. Please advise. Thank you. Contact [phone] * Telephone Encounter - Lilo Knott - 05/13/2025 3:04 PM CDT Oz from [facility] called and states that the patient is scheduled for a Left Heart Cath and there is currently no authorization. [place] [id number]. Please advise. Thank you. Contact : [phone] documented in this encounter Plan of Treatment Not on file documented as of this encounter Visit Diagnoses Not on filedocumented in this encounter Care Teams Retort Fireman Relationship Specialty Start Date End Date Kelley Marcum MD [address] [address] PCP - General Family Medicine 05/01/25 documented as of this encounter
--- OUTSIDE RECORDS SUMMARY | 2025-05-26 03:59 | XMS_ITS | Encounter Summary ---
Author Organization [facility] Healthcare Address [address] [place] [address] Care Team Providers Care Residential Counselor Name Role Phone Carlos Shields Primary Care Provider + Kelley Marcum MD Primary Care Provider [phone] Encounter Details Date Type Department Care Team (Late st Contact Info) Description 03/25/2025 Orders Only [facility] [place] [facility] [address] [place] [id number] Scanning, Provider Social History Tobacco Use Types Packs/Day Years Used Date Smoking Tobacco: Some Days Vaping Sex and Gender Information Value Date Recorded Sex Assigned at Not on file Legal Sex Male 8:59 AM CDT Gender Identity Not on file Sexual Orientation Not on file documented as of this encounter Plan of Treatment Not on file documented as of this encounter Procedures Procedure Name Priority Date/Time Associated Diagnosis Comments CARDIOLOGY DOCUMENT SCAN 03/25/2025 documented in this encounter Results * Cardiology Document Scan (03/25/2025) Anatomical Region Laterality Modality Other us Provider Scanning CV CARDIAC SERVICES PROCEDURES Final Result documented in this encounter Visit Diagnoses Not on filedocumented in this encounter Care Teams Residential Counselor Relationship Specialty Start Date End Date Carlos Shields PA [facility] [address] [place] [place] [address] PCP - General Internal Medicine 04/19/24 04/30/25 Kelley Marcum MD [facility] [address] [place] [address] PCP - General Family Medicine 05/01/25 documented as of this encounter
[2025-05-26 12:26] LABS: Hematocrit 46.3 % (42.0-52.0); Hemoglobin 15.7 g/dL (14.0-18.0); Immature Granulocyte Percent A 0.3 % (0-0.5); Lymphocytes Absolute Auto 1.79 K/mm3 (0.9-3.2); Mean Corpuscular HGB Conc 33.9 g/dl (32-36); Mean Corpuscular Hemoglobin 29.7 pg (26-34); Mean Corpuscular Volume 87.7 fl (80-100); Nucleated Red Blood Cells Absolute Auto 0.000 K/mm3 (0.0-0.012); Nucleated Red Blood Cells Perc 0.0 % (0.0-0.2); Platelet Count Result 274 k/mm3 (150-375); Red Blood Count 5.28 M/mm3 (4.6-6.20); White Blood Count 7.4 K/mm3 (4.5-10.0)
[2025-05-26 12:49] LABS: Anion Gap 10 mmol/L (4-12); Blood Urea Nitrogen 10 mg/dL (9-20); Calcium 8.7 mg/dL (8.4-10.2); Carbon Dioxide 23 mmol/L (22-30); Chloride 106 mmol/L (98-107); Estimated CRCL calculation 130 ml/min; Estimated Glomerular Filt Rate > 60; Glucose 159 mg/dL (65-110); Potassium 3.7 mmol/L (3.4-5.0); Sodium 139 mmol/L (137-145)
--- NOTE | 2025-05-26 13:16 | WPDHPUPDATE1 ---
History and Physical Update Update Date/Time: 05/26/25 13:16 History and Physical has been reviewed, including an updated exam of the patient. There are NO changes in the patient's condition. Risks, benefits, and alternatives have been discussed and questions answered. Patient agrees to proceed with procedure.
--- NOTE | 2025-05-26 13:16 | WPDMODSED ---
Moderate Sedation Note-Pt Data Patient Data Allergies Allergy/AdvReac Type Severity Reaction Status Date / Time No Known Allergies Allergy Verified 05/26/25 12:12 Home Medications ?Medication ?Instructions ?Recorded ?Confirmed ?Type atorvastatin 20 mg tablet 20 mg PO DAILY #30 tabs 09/01/21 05/26/25 Rx blood sugar diagnostic (OneTouch #1 pkg 03/28/25 04/08/25 Rx Verio test strips) blood-glucose meter (OneTouch #1 pkg 03/28/25 04/08/25 Rx Verio Flex Meter) empagliflozin 10 mg tablet 10 mg PO DAILY #30 tabs 03/28/25 05/23/25 Rx (Jardiance) insulin syringe,safety needle 0.5 #1 pkg 03/28/25 04/08/25 Rx mL 31 gauge x 5/16 lancets 30 gauge (OneTouch Delica #1 pkg 03/28/25 04/08/25 Rx Plus Lancet) pen needle, diabetic 32 gauge x #1 pkg 03/28/25 04/08/25 Rx /32 sacubitril 24 mg-valsartan 26 mg 1 tablet PO Q12HR #60 tabs 03/28/25 05/26/25 Rx tablet (Entresto) spironolactone 25 mg tablet 25 mg PO QAM #30 tabs 03/28/25 05/23/25 Rx insulin glargine 100 unit/mL 12 unit subcut HS 04/08/25 05/23/25 History subcutaneous solution (Lantus U-100 Insulin) sitagliptin phosphate 100 mg 100 mg PO DAILY 04/08/25 05/23/25 History tablet (Januvia) blood sugar diagnostic (OneTouch #1 pkg 04/09/25 Rx Verio test strips) blood-glucose meter (OneTouch #1 pkg 04/09/25 Rx Verio Flex Meter) insulin aspart U-100 100 unit/mL 4 unit (0.04 mL) subcut TID #15 mL 04/09/25 05/23/25 Rx (3 mL) subcutaneous pen (Novolog FlexPen U-100 Insulin aspart) insulin syringe,safety needle 0.5 #1 pkg 04/09/25 Rx mL 31 gauge x 5/16 lancets 30 gauge (OneTouch Delica #1 pkg 04/09/25 Rx Plus Lancet) pen needle, diabetic 32 gauge x #1 pkg 04/09/25 Rx carvedilol 6.25 mg tablet (Coreg) 12.5 mg PO BID 05/23/25 05/26/25 History Sedation/Anesthesia: No previous sedation/anesthesia problems (including family history). [facility] Past Medical History Medical History Hypokalemia Hyperlipidemia associated with type 2 diabetes mellitus Hypertension associated with diabetes Depression Anxiety Hyperlipidemia Hypertension Diabetes mellitus Family History Family History Mother Diabetes mellitus Lupus Father Obesity Social History Social History Smoking status: Never smoker Tobacco type: cigarettes Second hand tobacco smoke exposure: No Smoking end date: 08/14/12 Alcohol intake: never Substance use: never Substance use type: does not use Other substance usage details: 5-10 mg edibles several times a week Lack of Transportation: No Lack of Food: Never True Current Housing: I Have Housing Concerned About Future Housing: No Difficulty Paying Gas/Electric Bills: No Difficulty Paying for Meds: No Currently Unemployed: No Education: High School Diploma/GED Difficulty w/ Childcare or Family Care: No Living arrangements: with family Spiritual care concerns: No Mod Sed Physical Exam Physical Exam Pre Procedural Exam: Normal: Lungs, Heart Size, Heart Rate and Heart Rhythm Hours since solid foods: 12 Hours since liquid intake: 12 Mallampati Classification: class III Internal Medicine - PN: Obj Da Vital Signs Vital Signs: Vital Signs - 24 hr 05/26/25 12:16 Temperature 36.4 C Pulse Rate 77 Respiratory Rate 14 Blood Pressure 157/107 H Pulse Oximetry 100 Oxygen Delivery Room Air Labs 05/26/25 12:18 05/26/25 12:18 Labs: Laboratory Results - last 24 hr 05/26/25 12:18 WBC 7.4 RBC 5.28 Hgb 15.7 Hct 46.3 MCV 87.7 MCH 29.7 MCHC 33.9 RDW 13.6 Plt Count 274 MPV 9.6 Immature Gran % (Auto) 0.3 Neut % (Auto) 62.4 Lymph % (Auto) 24.1 [place] % (Auto) 10.2 H Eos % (Auto) 1.8 Baso % (Auto) 1.2 Lymph # (Auto) 1.79 [place] # (Auto) 0.8 H Eos # (Auto) 0.1 Baso # (Auto) 0.1 Abs Immat Gran (auto) 0.02 Absolute Neuts (auto) 4.6 Absolute Nucleated RBC 0.000 Nucleated RBC % 0.0 Sodium 139 Potassium 3.7 Chloride 106 Carbon Dioxide 23 Anion Gap 10 BUN 10 D Creatinine 0.61 L Estim Creat Clear Calc 130 Estimated GFR > 60 Glucose 159 H Calcium 8.7 ASA Classification/Sedation ASA Classification/Sedation ASA Class: III Emergent: No Risks: Risks, benefits and alternatives explained and patient/family accepted plan for sedation. Patient re-evaluated immediately prior to sedation.
--- NOTE | 2025-05-26 14:17 | WPDCARDPROC ---
Cardiac Cath Procedure Note Date of procedure:: 05/26/25 Performing physician:: CATHETERIZATION LABORATORY REPORT Procedure Date: 05/26/2025 Referring Physician: Dr. Hairston Anesthesia: Versed and Fentanyl were ordered and given in my presence at 1354, procedure ended at 1415. Supervision of nurse, Juan M Pierre monitored moderate sedation with 2mg Versed and 50mcg Fentanyl was provided for 21 minutes. Pre-op Diagnosis: New onset cardiomyopathy Post-op Diagnosis: New onset cardiomyopathy Procedure(s): Left heart catheterization with coronary angiography Access Site: Right radial artery Brief History and Clinical Indications: All risks, benefits and alternatives to left heart catheterization with or without percutaneous coronary intervention was discussed at length with the patient. Risk of complications including but not limited to bleeding, infection, arrhythmia, stroke, worsening kidney function, blood loss, groin hematoma, limb loss, emergency coronary artery bypass grafting, and even were discussed with the patient and all questions were answered. The patient understood and wished to proceed. Time out called, patient name, date of , medical record number, allergies, procedure performed, identify Recycling Coordinator, patient and staff member concurred with accurate data, procedure carried on. Findings: LEFT HEART CATHETERIZATION FINDINGS: 1. Left main: The left main coronary artery is widely patent without any significant obstructive disease. 2. Left anterior descending: The LAD and the diagonal branches have diffuse 10-20% stenosis. 3. Left circumflex: The left circumflex artery is a large dominant vessel provides 3 OM branches prior to giving off left PDA and PL branches. The left circumflex has diffuse 10% stenosis and after the takeoff of the 2nd OM branch, there is a 50-60% stenosis. The remainder of the vessel and its branches have diffuse 10-20% stenosis. 4. Right coronary artery: The RCA is a small nondominant vessel with diffuse 10-20% stenosis. 5. Left ventricle: A. End-diastolic pressure 24 mmHg. B. LV gram deferred. C. No significant gradient across aortic valve on catheter pullback. 6. Opening AO pressure 117/97 and closing AO pressure 147/93 Description of Procedure: Informed consent signed and placed in the chart. Patient transferred to laborer beam house room. Prepped and draped in usual sterile fashion. 2% lidocaine injected subcutaneously in right wrist area. 22-gauge venipuncture catheter used to access the right radial artery with the Seldinger technique. 6-FR slender sheath placed in right radial artery. Nitroglycerin 200mcg, Verapamil 2.5mg, and Heparin 5000U was given intraarterial through the sheath. J wire advanced under fluoroscopy and the 5F diagnostic TIG was unable to engage either arteries. 5F JL3.5 diagnostic catheter engaged Left Main Coronary Artery. 5F JR4 diagnostic catheter engaged Right Coronary Artery Multiple orthogonal angiogram obtained and reviewed 5F Pigtail catheter crossed aortic valve to obtain LVEDP, LV angiogram deferred. Hemostasis was achieved by application of TR band. Assessment: Moderate Single Vessel CAD. Post Operative Condition: Stable No significant blood loss Disposition: Home Plan: The above findings were discussed with the referring physician. Continue aggressive medical therapy and risk factor modification. [facility] Interventional Cardiology
== END 2025-05-26 18:05 | disposition home or self-care (01) ==
PROVIDERS: Visit Provider Internal Medicine
PROC: 4A023N7 Measurement of Cardiac Sampling and Pressure, Left Heart, Percutaneous Approach (ICD-10-PCS; CPT 93452; principal; 2025-05-26 13:00)
DX: I25.10 Atherosclerotic heart disease of native coronary artery without angina pectoris (principal); I11.0 Hypertensive heart disease with heart failure; I50.42 Chronic combined systolic (congestive) and diastolic (congestive) heart failure; I44.7 Left bundle-branch block, unspecified; I34.0 Nonrheumatic mitral (valve) insufficiency; E11.65 Type 2 diabetes mellitus with hyperglycemia; E87.6 Hypokalemia; E78.5 Hyperlipidemia, unspecified; F32.A Depression, unspecified; F41.9 Anxiety disorder, unspecified; F12.90 Cannabis use, unspecified, uncomplicated; Z79.4 Long term (current) use of insulin; Z79.84 Long term (current) use of oral hypoglycemic drugs; Z79.891 Long term (current) use of opiate analgesic; Z87.891 Personal history of nicotine dependence
CPT/HCPCS: 36415; 80048; 85025; 93458; C1769; C1887; C1894; J1644; J2003; J2250; J2305; J3010; J7040